=== PATIENT | female | born 1950 | race Caucasian/White ===

== ENCOUNTER → 2019-07-30 15:54 | Outpatient (BNVA) | payer BC, SELFPAY | PROVIDERS: Family Provider Nurse Practitioner; PCP Nurse Practitioner; Visit Provider Nurse Practitioner Family | DX: N39.0 Urinary tract infection, site not specified (principal); F17.200 Nicotine dependence, unspecified, uncomplicated | CPT/HCPCS: 80053; 80061; 81003; 82306; 83036; 84443; 85025; 87077; 87086; 87186 ==

== ENCOUNTER → 2019-08-12 15:51 | Outpatient (BNVA) | payer BC, SELFPAY | PROVIDERS: Family Provider Nurse Practitioner; PCP Nurse Practitioner; Visit Provider Nurse Practitioner Family | DX: N39.0 Urinary tract infection, site not specified (principal) | CPT/HCPCS: 80053; 81001; 87077; 87086; 87186 ==

== ENCOUNTER → 2019-08-28 15:54 | Outpatient (BNVA) | payer BC, SELFPAY | PROVIDERS: Family Provider Nurse Practitioner; PCP Nurse Practitioner; Visit Provider Nurse Practitioner Family | DX: N39.0 Urinary tract infection, site not specified (principal) | CPT/HCPCS: 80053; 81003 ==

== ENCOUNTER → 2020-11-19 11:50 | Outpatient (BNVA) | payer OTHER, SELFPAY | PROVIDERS: Family Provider Nurse Practitioner; PCP Nurse Practitioner; Visit Provider Nurse Practitioner Family | DX: N39.0 Urinary tract infection, site not specified (principal); F17.200 Nicotine dependence, unspecified, uncomplicated; R53.83 Other fatigue; Z79.899 Other long term (current) drug therapy; E78.2 Mixed hyperlipidemia; E55.9 Vitamin D deficiency, unspecified | CPT/HCPCS: 80053; 80061; 81003; 82306; 83036; 83735; 84443; 85025 ==

== ENCOUNTER → 2021-01-28 14:39 | Outpatient (BNVA) | payer OTHER, SELFPAY | PROVIDERS: Family Provider Nurse Practitioner; PCP Nurse Practitioner Family; Visit Provider Nurse Practitioner Family | DX: N39.0 Urinary tract infection, site not specified (principal); R39.9 Unspecified symptoms and signs involving the genitourinary system | CPT/HCPCS: 81003; 87086 ==

== ENCOUNTER → 2021-02-01 11:19 | Outpatient (BNVA) | payer OTHER, SELFPAY | PROVIDERS: Family Provider Nurse Practitioner; PCP Nurse Practitioner Family; Visit Provider Nurse Practitioner Family | DX: I10 Essential (primary) hypertension (principal); Z79.899 Other long term (current) drug therapy; E55.9 Vitamin D deficiency, unspecified; E78.2 Mixed hyperlipidemia | CPT/HCPCS: 80053; 80061; 82306; 83036; 84443; 85025 ==

== ENCOUNTER 2021-02-07 14:54 | Observation (INO) | payer MEDICARE, SELFPAY ==
[2021-02-07] VITALS (7 sets, daily range): BP systolic 139–181; BP diastolic 80–110; PULSE 76–106; RESP 16–18; TEMP 36.4–37.2; O2SAT 94–98; BMI 27.3
--- NOTE | 2021-02-07 15:44 | ECG_ITS ---
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 Measurements Intervals [place] Rate: 90 P: 40 NE: 136 QRS: 43 QRSD: 93 T: 46 QT: 351 QTc: 430 Interpretive Statements SINUS RHYTHM POSSIBLE LEFT ATRIAL ENLARGEMENT [-0.1mV P-WAVE IN V1/V2] INCOMPLETE RIGHT BUNDLE BRANCH BLOCK [90+ ms QRS DURATION, TERMINAL R IN V1/V2, 40+ ms S IN I/aVL/V4/V5/V6] No previous ECG available for comparison Electronically Signed On 02-07-2021 18:37:07 CDT by Anna Mcgovern M.D. [id number]
--- NOTE | 2021-02-07 15:44 | XRR_ITS ---
PROCEDURE INFORMATION: Exam: XR Chest Exam date and time: 02/07/2021 3:44 PM Age: 70 years old Clinical indication: Dyspnea TECHNIQUE: Imaging protocol: XR of the chest. Views: 1 view. COMPARISON: No relevant prior studies available. FINDINGS: Lungs: Compressive atelectasis in the the left lingula and left lower lobe. Pleural spaces: Moderate left pleural effusion. Heart/Mediastinum: The cardiac silhouette is mildly enlarged. Mediastinal contours are unremarkable. Vasculature: Vascular calcifications in the aorta. Bones/joints: Unremarkable for age. XR/XR chest 1V portable [id number] IMPRESSION: 1. Moderate left pleural effusion with compressive atelectasis in the the left lingula and left lower lobe. 2. Incidental/nonacute findings are listed in the report. Radiation Dose CTDIVOL = (mGy): DLP = (mGy-cm)
--- NOTE | 2021-02-07 16:06 | ED_ITS ---
HPI - General Adult General: Chief complaint: Shortness of Breath/Dyspnea Stated complaint: CP, SOB Time Seen by Provider: 02/07/21 15:34 History of Present Illness: HPI narrative: CC: Chest Pain HPI: This is a 70yo patient hx of new diagonsis of HTN, smoking, first degree family member with heart problem presenting to the ED w/ acute onset worsening dyspnea and chest pain since 3 weeks away. Patient is followed by Dr. Tan and is planned to have a stress test. However patient has not done this test yet and has had progressively worsening dyspnea and chest pain. Only chest pain 2 out of 10. Pain is not tearing in nature and does not radiate to the back. Endorse nausea but has no associated with vomiting or decreased PO intake. Denies any recent sympathomimetic drug use. Patient denies any cough. Denies palpitations, syncope symptoms. Pain not positional. Norecent immobility, surgery, unilateral leg swelling, or prior PE. Patient denies any orthopnea, paroxysmal nocturnal dyspnea, weight gain, or increased leg swellings. Onset: 3 weeks ago Duration: acutely worsening in the last 3 days Location: home Severity: moderate Review of Systems Narrative: Constitutional: No fever, no chills. HEENT: No vision changes, no sore throat. CV: +chest pain, no palpitations. PULM: No cough, +dyspnea. GI: No abdominal pain, no N/V/D. : No dysuria, no frequency, no hematuria. MSKEL: No arthralgias, no edema. SKIN: No new rashes, no lesions. NEURO: No headache, no focal weakness. HEME: No easy bleeding or bruising. PSYCH: No change in mood or affect. PFSH ED PFSH: Medical History (Updated 02/10/21 @ 00:01 by ) Chest pressure Dyspnea Encounter for medication management Essential hypertension Frequent UTI Murmur UTI symptoms Vitamin D deficiency Social History Smoking and tobacco status: current every day smoker Physical Exam Narrative: EXAM NARRATIVE: Head: Atraumatic, normocephalic Eyes: PERRL, EOMI, conjunctiva without injection ENT: Throat without erythema, lesions or exudate, MMM NECK: Supple, trachea midline, no JVD LUNGS: LCTA CV: RRR, S1,S2, no murmurs, rubs, gallops. 2+ peripheral pulses in UEs ABDOMEN: Soft, nontender, nondistended, BS x4, no rigidity, no guarding, no re bound EXTREMITY: Normal ROM, no pitting edema, no calf tenderness to palpation SKIN: No rash or erythema NEURO: Awake and alert. No focal motor deficits. PSYCH: Normal mood and affect. Course Vital Signs: Vital signs: Vital Signs Temperature 98.6 F 02/09/21 14:56 Pulse Rate 75 02/09/21 14:56 Respiratory Rate 16 02/09/21 14:56 Blood Pressure 121/78 02/09/21 14:56 Pulse Oximetry 96 02/09/21 14:56 MDM - General Adult MDM Narrative: Medical decision making narrative: [70]yo patient w/ hx of HTN, smoking, family member with heart problems presenting to the ED With acute chest pain/dyspnea progressively worsening in the last 3 weeks. Given History And Exam today I have moderate to high suspicion for ACS/UA/NSTEMI. Today, I have NO suspicion for pneumothorax, pneumonia, pulmonary embolus, tamponade, aortic dissection or other emergent problem as a cause for this presentation. ECG did not show any signs of acute STEMI. Workup: ECG, CXR, CBC, BMP, Troponin x 3 Intervention: ASA 325mg, nitroglycerin ointment EKG showing regular sinus rhythm at HT of 68. Normal axis. No ST elevations/depressions to suggest coronary occlusion. Normal RI, QRS, QT intervals. Findings: ECG: No overt evidence of STEMI, no hyperacute T waves, localizable STD or T wave inversions. No evidence of Brugada?s sign, delta wave, epsilon wave, significantly prolonged QTc, or malignant arrhythmia. No Q waves. Troponin: Negative x 1 Other Labs unremarkable for emergent problems. CXR: Without PTX, PNA, or widened mediastinum [6:20pm] On reassessment, the patient is currently chest pain free. S/p aspirin 325mg. Dimer is >20. CTA showed pulmonary embolism. Will anticoagulate. No signs of dissection on CTA. Incidental findings of L sided spiculated lesion discussed extensively with patient. Patient received a copy of the CT report with the documented findings. Findings relayed to the inpatient provider. Patient is instructed to follow up urgently with specialists. Disposition: Inpatient admission. Lab Data: Labs: Lab Results 02/07/21 02/07/21 02/07/21 16:00 16:00 16:00 WBC 9.2 10^3/uL 10^3/ uL (4.0-10.0) RBC 4.47 10^6/uL 10^6 /uL (4.1-5.3) Hgb 12.2 g/dL g/dL (11.5-15.3) Hct 37.4 % % (37.0-47.0) MCV 83.7 fl fl (81-99) MCH 27.3 pg L pg (28.0-34.0) MCHC 32.6 g/dL g/dL (30.0-36.0) RDW 13.2 % % (12.1-15.1) Plt Count 218 10^3/cmm 10^3 /cmm (130-400) MPV 10.8 fL H fL (7.4-10.4) Neut % (Auto) 68.5 % % Lymph % (Auto) 18.9 % % Lyman % (Auto) 7.9 % % Eos % (Auto) 3.7 % % Baso % (Auto) 0.5 % % Neut # (Auto) 6.30 10^3/uL 10^3 /uL (1.8-7.7) Lymph # (Auto) 1.7 10^3/uL 10^3/ uL (0.8-4.8) Lyman # (Auto) 0.7 10^3/uL 10^3/ uL (0.2-0.9) Eos # (Auto) 0.3 10^3/uL 10^3/ uL (0.0-0.8) Baso # (Auto) 0.1 10^3/uL 10^3/ uL (0.0-0.1) Nucleated RBC % (a uto) 0 % % Nucleated RBCs # 0.0 /100WBC /100W BC D-Dimer Sodium 138 mmol/L mmol/L (136-145) Potassium 4.4 mmol/L mmol/L (3.5-5.1) Chloride 101 mmol/L mmol/L (98-107) Carbon Dioxide 24 mmol/L mmol/L (22-29) Anion Gap 17.4 (5-19) BUN 12 mg/dL mg/dL (8-23) Creatinine 0.7 mg/dL mg/dL (0.5-0.9) GFR Calculation 83.2 mL/min L mL/ min (90-130) Glucose 92 mg/dL mg/dL (65-115) Estimat Average Gl ucose Hemoglobin A1c Calculated Osmolal ity 285 mOsm/kg mOsm/ kg (285-295) Calcium 9.2 mg/dL mg/dL (8.5-10.5) Troponin T Baselin e 11 ng/L H ng/L (0-10) NT-Pro-B Natriuret Pep Procalcitonin TSH SARS-CoV-2 Ag (Rap id) 02/07/21 02/07/21 02/07/21 16:00 16:00 16:00 WBC RBC Hgb Hct MCV MCH MCHC RDW Plt Count MPV Neut % (Auto) Lymph % (Auto) Lyman % (Auto) Eos % (Auto) Baso % (Auto) Neut # (Auto) Lymph # (Auto) Lyman # (Auto) Eos # (Auto) Baso # (Auto) Nucleated RBC % (a uto) Nucleated RBCs # D-Dimer >= 20.00 ug/mIFEU H ug/mIFEU (0-0.59) Sodium Potassium Chloride Carbon Dioxide Anion Gap BUN Creatinine GFR Calculation Glucose Estimat Average Gl ucose 97 Hemoglobin A1c 5.0 % % (4.0-6.0) Calculated Osmolal ity Calcium Troponin T Baselin e NT-Pro-B Natriuret Pep Procalcitonin TSH SARS-CoV-2 Ag (Rap id) Negative (Negative) 02/07/21 02/07/21 16:00 16:00 WBC RBC Hgb Hct MCV MCH MCHC RDW Plt Count MPV Neut % (Auto) Lymph % (Auto) Lyman % (Auto) Eos % (Auto) Baso % (Auto) Neut # (Auto) Lymph # (Auto) Lyman # (Auto) Eos # (Auto) Baso # (Auto) Nucleated RBC % (a uto) Nucleated RBCs # D-Dimer Sodium Potassium Chloride Carbon Dioxide Anion Gap BUN Creatinine GFR Calculation Glucose Estimat Average Gl ucose Hemoglobin A1c Calculated Osmolal ity Calcium Troponin T Baselin e NT-Pro-B Natriuret Pep 74 pg/mL pg/mL (0-125) Procalcitonin 0.03 ng/mL ng/mL (0-0.5) TSH 1.35 uIU/mL uIU/m L (0.27-4.20) SARS-CoV-2 Ag (Rap id) Imaging Data^: Other Imaging: Radiologist's impression: [email or web address] [place] [id number] ReportSigned Patient: Rima Manuel #: [id number]: 1950cct#:[id number]/Sex: 70 / FADM Date: 02/07/21Loc: ERRoom/Bed:Attending Dr: Ordering Provider/Ordering MD: Donovan Jenkins MD Date of Service: 02/07/21 Procedure(s): XR chest 1V portable [id number] Accession Number(s): [id number] Report Number: [id number] PROCEDURE INFORMATION: Exam: XR Chest Exam date and time: 02/07/2021 3:44 PM Age: 70 years old Clinical indication: Dyspnea TECHNIQUE: Imaging protocol: XR of the chest. Views: 1 view. COMPARISON: No relevant prior studies available. FINDINGS: Lungs: Compressive atelectasis in the the left lingula and left lower lobe. Pleural spaces: Moderate left pleural effusion. Heart/Mediastinum: The cardiac silhouette is mildly enlarged. Mediastinal contours are unremarkable. Vasculature: Vascular calcifications in the aorta. Bones/joints: Unremarkable for age. XR/XR chest 1V portable [id number] IMPRESSION: 1. Moderate left pleural effusion with compressive atelectasis in the the left lingula and left lower lobe. 2. Incidental/nonacute findings are listed in the report. Radiation Dose CTDIVOL = (mGy): DLP = (mGy-cm) Dictated By:Mitzi Walsh MDSigned By:Mitzi Walsh MDSigned Date/Time:02/07/21 1726DD/ [email or web address] [id number] Scan ReportSigned Patient: Rima Manuel #: [id number]: 1950cct#:[id number]/Sex: 70 / FADM Date: 02/07/21Loc: [facility]/Bed: 277-2Attending Dr: Freya Ames MD Ordering Provider/Ordering MD: Donovan Jenkins MD Date of Service: 02/07/21 Procedure(s): CT angio chest PE protcl [id number] Accession Number(s): [id number] Report Number: [id number] PROCEDURE INFORMATION: Exam: CTA Chest With Contrast Exam date and time: 02/07/2021 5:49 PM Age: 70 years old Clinical indication: Shortness of breath; Patient HX: SOB. D dimer of 20. ; Additional info: Eval for pe TECHNIQUE: Imaging protocol: Computed tomographic angiography of the chest with contrast. Sagittal and coronal reformatted images were created and reviewed. 3D rendering (Not supervised by radiologist): MIP and/or 3D reconstructed images were created by the technologist. Radiation optimization: All CT scans at this facility use at least one of these dose optimization techniques: automated exposure control; mA and/or kV adjustment per patient size (includes targeted exams where dose is matched to clinical indication); or iterative reconstruction. Contrast material: OMNI 350; Contrast volume: 83 ml; Contrast route: INTRAVENOUS (IV); COMPARISON: CR (CHEST, ) 02/07/2021 4:09 PM RADIATION DOSE METRICS: Total DLP (mGy-cm): 569.47 FINDINGS: Pulmonary arteries: Occlusive pulmonary emboli in the anterior and lateral segmental branches and and subsegmental branches of the right lower lobe pulmonary artery. Nonocclusive pulmonary emboli in the superior and posterior segmental branches of the right lower lobe pulmonary artery. Aorta: Mild atherosclerotic changes in the visualized arteries. No evidence for aortic aneurysm or aortic dissection. Lungs: Tracheobronchial structures are patent. Spiculated nodule in the left upper lobe measuring 1.5 x 0.8 x 1.0 cm (series 602, image 26 and series 3, image 14). Mild paraseptal and centrilobular emphysematous changes in the lungs. Compressive atelectasis in the the left lower lobe. No pulmonary parenchymal nodules or masses. Calcified granuloma in the the right upper lobe. Pleural spaces: Large left pleural effusion. Heart: The heart is normal in size. Mild atherosclerotic calcification in the coronary arteries. The heart is normal in size. Heart RV/LV ratio: The RV/LV ratio is 0.89, which is borderline upper normal. Mediastinal space: The esophagus is unremarkable. No mediastinal hematoma. No pneumomediastinum. Lymph nodes: Multiple enlarged right hilar lymph nodes. The largest measures 2.5 cm in short axis (series 2, image 99). Multiple enlarged mediastinal lymph nodes, the largest measures 1.9 cm in short axis (series 2, image 154). Liver: The visualized liver is unremarkable. Gallbladder and bile ducts: Patient has had a previous cholecystectomy. No dilatation of the visualized bile ducts. Pancreas: The visualized pancreas is unremarkable. No pancreatic ductal dilatation. Spleen: The visualized spleen is unremarkable. Adrenal glands: The right and left adrenal glands are unremarkable. Kidneys and ureters: Multiple cysts in the visualized kidneys. The largest cyst on the right measures 5.1 cm. Cysts in the left kidney are partially visualized, the largest measures at least 3.6 cm. Stomach and bowel: Scattered diverticula in the colon. No evidence for diverticulitis. Bones/joints: Degenerative changes in the spine and shoulders. Small bone islands in the left humeral head. Soft tissues: No acute abnormality in the extrathoracic soft tissues. CT/CT angio chest [place] protcl [id number] IMPRESSION: 1. Occlusive pulmonary emboli in the anterior and lateral segmental branches and and subsegmental branches of the right lower lobe pulmonary artery. Nonocclusive pulmonary emboli in the superior and posterior segmental branches of the right lower lobe pulmonary artery. 2. The RV/LV ratio is 0.89, which is borderline upper normal. 3. Large left pleural effusion. 4. Compressive atelectasis in the the left lower lobe. 5. Scattered diverticula in the colon. No evidence for diverticulitis. 6. Spiculated nodule in the anterior left upper lobe with mediastinal and right axillary lymphadenopathy. Findings are concerning for a primary pulmonary neoplasm with associated metastatic disease. Recommend clinical correlation. 7. Incidental/nonacute findings are listed in the report. COMMENTS: 1. THIS REPORT CONTAINS FINDINGS THAT MAY BE CRITICAL TO PATIENT CARE. The findings were verbally communicated via telephone conference with DONOVAN Lyons at 6:36 PM CDT on 02/07/2021. The findings were acknowledged and understood. 2. Consistent with the [employer]'s Incidental Findings Committee white paper (J Am Anna Radiol 2018): Any incidental renal lesion less than 1 cm or classified as too small to characterize, or any incidental cystic renal lesion characterized as simple-appearing, is likely benign. No follow-up imaging is recommended for these lesions per consensus recommendations based on imaging criteria. Radiation Dose CTDIVOL = (mGy): DLP = 569.47 (mGy-cm) Dictated By:Mitzi Walsh MDSigned By:Mitzi Walsh MDSigned Date/Time:02/07/211838DD/ 48 Discharge Plan Discharge Patient Disposition: Admitted As Inpatient Admit Provider: Freya Ames Clinical Impression: Chest pain, Exertional dyspnea, Pulmonary embolism, Elevated troponin Condition: Stable Discharge Diet: Regular Discharge Activity: Increase activity as tolerated Coding Level of Care Code ED Manager Environmental Health for Nikko Perez
[2021-02-07 16:22] LABS: Basophils # 0.1 10^3/uL (0.0-0.1); Basophils % 0.5 %; Eosinophils # 0.3 10^3/uL (0.0-0.8); Eosinophils % 3.7 %; Hematocrit 37.4 % (37.0-47.0); Hemoglobin 12.2 g/dL (11.5-15.3); Lymphocytes # 1.7 10^3/uL (0.8-4.8); Lymphocytes % 18.9 %; Mean Corpuscular HGB Conc 32.6 g/dL (30.0-36.0); Mean Corpuscular Hemoglobin 27.3 pg (28.0-34.0); Mean Corpuscular Volume 83.7 fl (81-99); Mean Platelet Volume 10.8 fL (7.4-10.4); Monocytes # 0.7 10^3/uL (0.2-0.9); Monocytes % 7.9 %; Neutrophils % 68.5 %; Nucleated Red Blood Cells % 0 %; Platelet Count 218 10^3/cmm (130-400); Red Blood Count 4.47 10^6/uL (4.1-5.3); Red Cell Distribution Width 13.2 % (12.1-15.1); White Blood Count 9.2 10^3/uL (4.0-10.0)
[2021-02-07] MEDS: nitroglycerin 1 gm/inch oint Pkt 0.5 INCH TOPICAL (16:24)
[2021-02-07] MEDS: aspirin 325 mg Tablet PO (16:24)
[2021-02-07 16:56] LABS: Troponin(5th) Baseline 11 ng/L (0-10)
[2021-02-07 16:59] LABS: Anion Gap 17.4 (5-19); Blood Urea Nitrogen 12 mg/dL (8-23); Calcium 9.2 mg/dL (8.5-10.5); Carbon Dioxide 24 mmol/L (22-29); Chloride 101 mmol/L (98-107); Glomerular Filtration Rate 83.2 mL/min (90-130); Glucose 92 mg/dL (65-115); Osmolality Calculated 285 mOsm/kg (285-295); Potassium 4.4 mmol/L (3.5-5.1); Sodium 138 mmol/L (136-145)
[2021-02-07 17:28] LABS: SARS Covid-2 Antigen Negative (Negative)
[2021-02-07 17:30] LABS: D Dimer >= 20.00 ug/mIFEU (0-0.59)
--- NOTE | 2021-02-07 17:49 | CTR_ITS ---
PROCEDURE INFORMATION: Exam: CTA Chest With Contrast Exam date and time: 02/07/2021 5:49 PM Age: 70 years old Clinical indication: Shortness of breath; Patient HX: SOB. D dimer of 20. ; Additional info: Eval for pe TECHNIQUE: Imaging protocol: Computed tomographic angiography of the chest with contrast. Sagittal and coronal reformatted images were created and reviewed. 3D rendering (Not supervised by radiologist): MIP and/or 3D reconstructed images were created by the technologist. Radiation optimization: All CT scans at this facility use at least one of these dose optimization techniques: automated exposure control; mA and/or kV adjustment per patient size (includes targeted exams where dose is matched to clinical indication); or iterative reconstruction. Contrast material: OMNI 350; Contrast volume: 83 ml; Contrast route: INTRAVENOUS (IV); COMPARISON: CR (CHEST, ) 02/07/2021 4:09 PM RADIATION DOSE METRICS: Total DLP (mGy-cm): 569.47 FINDINGS: Pulmonary arteries: Occlusive pulmonary emboli in the anterior and lateral segmental branches and and subsegmental branches of the right lower lobe pulmonary artery. Nonocclusive pulmonary emboli in the superior and posterior segmental branches of the right lower lobe pulmonary artery. Aorta: Mild atherosclerotic changes in the visualized arteries. No evidence for aortic aneurysm or aortic dissection. Lungs: Tracheobronchial structures are patent. Spiculated nodule in the left upper lobe measuring 1.5 x 0.8 x 1.0 cm (series 602, image 26 and series 3, image 14). Mild paraseptal and centrilobular emphysematous changes in the lungs. Compressive atelectasis in the the left lower lobe. No pulmonary parenchymal nodules or masses. Calcified granuloma in the the right upper lobe. Pleural spaces: Large left pleural effusion. Heart: The heart is normal in size. Mild atherosclerotic calcification in the coronary arteries. The heart is normal in size. Heart RV/LV ratio: The RV/LV ratio is 0.89, which is borderline upper normal. Mediastinal space: The esophagus is unremarkable. No mediastinal hematoma. No pneumomediastinum. Lymph nodes: Multiple enlarged right hilar lymph nodes. The largest measures 2.5 cm in short axis (series 2, image 99). Multiple enlarged mediastinal lymph nodes, the largest measures 1.9 cm in short axis (series 2, image 154). Liver: The visualized liver is unremarkable. Gallbladder and bile ducts: Patient has had a previous cholecystectomy. No dilatation of the visualized bile ducts. Pancreas: The visualized pancreas is unremarkable. No pancreatic ductal dilatation. Spleen: The visualized spleen is unremarkable. Adrenal glands: The right and left adrenal glands are unremarkable. Kidneys and ureters: Multiple cysts in the visualized kidneys. The largest cyst on the right measures 5.1 cm. Cysts in the left kidney are partially visualized, the largest measures at least 3.6 cm. Stomach and bowel: Scattered diverticula in the colon. No evidence for diverticulitis. Bones/joints: Degenerative changes in the spine and shoulders. Small bone islands in the left humeral head. Soft tissues: No acute abnormality in the extrathoracic soft tissues. CT/CT angio chest [place] protcl [id number] IMPRESSION: 1. Occlusive pulmonary emboli in the anterior and lateral segmental branches and and subsegmental branches of the right lower lobe pulmonary artery. Nonocclusive pulmonary emboli in the superior and posterior segmental branches of the right lower lobe pulmonary artery. 2. The RV/LV ratio is 0.89, which is borderline upper normal. 3. Large left pleural effusion. 4. Compressive atelectasis in the the left lower lobe. 5. Scattered diverticula in the colon. No evidence for diverticulitis. 6. Spiculated nodule in the anterior left upper lobe with mediastinal and right axillary lymphadenopathy. Findings are concerning for a primary pulmonary neoplasm with associated metastatic disease. Recommend clinical correlation. 7. Incidental/nonacute findings are listed in the report. COMMENTS: 1. THIS REPORT CONTAINS FINDINGS THAT MAY BE CRITICAL TO PATIENT CARE. The findings were verbally communicated via telephone conference with BETO Lyons at 6:36 PM CDT on 02/07/2021. The findings were acknowledged and understood. 2. Consistent with the [employer]'s Incidental Findings Committee white paper (J Am Anna Radiol 2018): Any incidental renal lesion less than 1 cm or classified as too small to characterize, or any incidental cystic renal lesion characterized as simple-appearing, is likely benign. No follow-up imaging is recommended for these lesions per consensus recommendations based on imaging criteria. Radiation Dose CTDIVOL = (mGy): DLP = 569.47 (mGy-cm)
[2021-02-07] MEDS: iohexol 350 mg/mL 100 mL Btl IV (18:08)
--- NOTE | 2021-02-07 19:40 | PM.HP ---
Providers/Chief Complaint Admitting Physician: Freya Ames MD Primary Care Provider: CLOVIS Beltrán Chief Complaint: CP, SOB History of Present Illness Rima Manuel is a 70 year old female Patient is 70-year-old female with recent diagnosis of hypertension, active smoking who presents to the hospital today for complaint of shortness of breath. She states initially the shortness of breath started about 3 weeks ago and has been slowly progressively worsening. She saw her primary care provider recently and was ordered to have a stress test and an echocardiogram but before she could get to that she ended up in the hospital. She states shortness of breath has worsened to the point where she would just walk up 4 4 5 feet and has shortness of breath. She also complains of a chest pressure that is intermittent comes and goes. Does not report any pain radiating to her back but does endorse having some pain in her right shoulder blade. She says she considers himself pretty healthy up until she got diagnosed with hypertension. She was placed on amlodipine 2.5 mg daily. She states she has been checking her blood pressure at home and remembers that the systolic is around 130 but does not remember the diastolic pressure. She denies being sedentary or having any surgeries recently. She does endorse bilateral lower extremity swelling with one leg being the worse compared to the other. She also states that her sugars have been feeling tighter when her feet are swollen but has not experienced any increased use of pillows at night. She does not carry a diagnosis of COPD that she knows of and does not use any inhalers at home. Patient states that she has recurrent UTIs and has had about 3 of them in the last 2 years. She was also recently on a course of Macrobid that she completed. Also she mentions that her dad and sister both had heart disease that was diagnosed in their 50s. Patient denies having Covid and has not had a covid vaccine. On arrival to ER blood pressure 159/80, pulse ox 96% on room air, respiratory rate 18, pulse 95%, temperature 99. Initial impression of the ER was acute coronary syndrome/unstable angina. Initial troponin was negative. Second troponin was pending. EKG did not show any signs of acute ST elevation ME or acute ischemic changes. However there was a right bundle branch block present on EKG. Patient was given aspirin 325 and was placed Nitro-Bid 2.5 inches to which she did not really experience any change in the pain or pressure. D-dimer was done which came back high at 20. CT was done which did show pulmonary embolism in multiple segments of right upper and lower lobe. There was also incidental findings of left-sided spiculated lesion 1.5 cm that were discussed by the ER with the patient. Findings were concerning for primary pulmonary neoplasm with associated metastatic disease. She was also given a copy of the report with the documented findings. There was also a large left pleural effusion present. RV/LV ratio was 0.89 which is borderline upper normal. Echocardiogram was ordered. The third troponin is pending at this point. Patient was given first dose of full dose Lovenox in the ER and admitted. Review of Systems General: Reports: 10 or more systems reviewed and unremarkable except in HPI and below Medications/Allergies Home Medications Medication Instructions Recorded Confirmed Last Taken Type amlodipine 2.5 mg tablet 2.5 mg PO DAILY 30 Days #30 tab 02/03/21 02/07/21 02/07/21 Rx aspirin 81 mg PO DAILY 02/07/21 02/07/21 02/07/21 History cholecalciferol (vitamin D3) 25 mcg PO DAILY 02/07/21 02/07/21 02/07/21 History [Vitamin D3] elderberry fruit [Elderberry] 200 mg PO DAILY 02/07/21 02/07/21 02/07/21 History multivitamin 1 tab PO DAILY 02/07/21 02/07/21 02/07/21 History zinc 50 mg PO DAILY 02/07/21 02/07/21 02/07/21 History Allergies Allergy/AdvReac Type Severity Reaction Status Date / Time No Known Allergies Allergy Verified 02/03/21 14:37 PFSH Acute PFSH: Medical History (Updated 02/07/21 @ 20:20 by Freya Ames MD) Chest pressure Dyspnea Encounter for medication management Essential hypertension Frequent UTI Murmur UTI symptoms Vitamin D deficiency Social History Smoking and tobacco status: current every day smoker Vitals/I&O/Wt Last Vital Signs Temp 99.0 F 02/07/21 15:21 Pulse 80 02/07/21 19:26 Resp 16 02/07/21 19:26 BP 181/101 02/07/21 19:26 Pulse Ox 98 02/07/21 19:26 Weight last 48 hrs Weight 68.039 kg Physical Exam Narrative: EXAM NARRATIVE: General: Alert oriented x3, patient seen sitting up on edge of bed in the ER. She is accompanied by 2 of her daughters. HEENT: Normocephalic, atraumatic, EOMI, breathing room air appearing comfortable but anxious Cardio: Regular rate rhythm, normal S1-S2, no murmurs rubs gallops, pain is not reproducible to palpation. Mainly occurring in epigastric region as per patient. Respiratory: Good bilateral air entry, no wheezes no rhonchi appreciated, there are mild crackles heard at the left base. GI: Abdomen soft, nontender, nondistended, bowel sounds + Behavior: Appropriate and cooperative Extremities: Pulses 2+, trace edema present bilateral lower extremities, no cyanosis. Both calves do appear symmetrical at this point. Nontender. Data : 02/07/21 16:00 02/07/21 16:00 A&P Assessment and plan (1) Pulmonary embolism: Status: Acute (2) Exertional dyspnea: Status: Acute (3) Essential hypertension: Status: Acute (4) Mixed hyperlipidemia: Status: Suspected (5) Pulmonary nodule 1 cm or greater in diameter: Status: Acute Additional A&P Information #Multiple segmental pulmonary embolism #Exertional dyspnea #Pulmonary nodule 1 cm or greater #Large left pleural effusion #Nicotine dependence -Patient presents with unprovoked PE at this point. She is an active smoker 1 pack/day. -Also has a large left pleural effusion. We will give Lasix 20 mg IV x1 for now and see if there is response. Will repeat chest x-ray in a.m. Patient most likely needs a thoracentesis but I cannot hold her full dose Lovenox due to multiple segmental pulmonary embolism at this point and due to patient's symptoms. -Currently on room air. -She has been started on full dose Lovenox twice daily. -There is a question of underlying malignancy. She will need urgent follow-up with pulmonology as an outpatient for further work-up. -We will most likely transition her to a DOAC at discharge -We will await echocardiogram -We will follow troponins and monitor for further chest pressure. Most likely her chest pressure and exertional dyspnea are due to her pulmonary embolism at this point but cardiac cause is not excluded. Given her family history of coronary artery disease and age 50 and dad and sister patient will most likely benefit from a stress test. Currently she is chest pain-free. So far EKG has not shown any ischemic changes. We will wait for further troponin levels to make a determination. Currently she has been covered with Lovenox. Night hospitalist has been updated to follow troponin levels. #Hypertension -As an outpatient she was amlodipine 2.5 mg daily. Looking at the trend of her blood pressure I believe she would benefit from a higher dose. I will start her amlodipine 10 mg starting tomorrow morning. For now her blood pressure 181/101 we will give her a one-time hydralazine IV push. #Hyperlipidemia ?Lipid profile done total cholesterol 267 LDL high. -We will discuss initiation of a statin with the patient and start #Fluids: Not indicated Electrolytes: Replete as needed Nutrition: Low-salt diet Activity: As tolerated DVT prophylaxis: On full dose Lovenox at this time Attestations Medical Necessity Statement*: Expected discharge possibly within 48 hours. Time Spent in Patient Care: Greater than 35 minutes Coding Level of Care Code Acute Sales And Service Officer for Nikko Perez Diagnoses Pulmonary embolism I26.99 Exertional dyspnea R06.00 Essential hypertension I10 Mixed hyperlipidemia E78.2 Pulmonary nodule 1 cm or greater in diameter R91.1
--- NOTE | 2021-02-07 20:00 | ECG_ITS ---
[facility] Test Date: 2021-02-07 Pat Name: Rima Manuel Department: Room: 277 Gender: Female Crm Specialist: : 1950 Requested By: Freya Ames Order Number: [id number] Lora MD: Anna Mcgovern M.D. Measurements Intervals [place] Rate: 81 P: 54 MN: 141 QRS: 45 QRSD: 93 T: 46 QT: 378 QTc: 440 Interpretive Statements SINUS RHYTHM Compared to ECG 02/07/2021 15:31:20 Incomplete right bundle-branch block no longer present Electronically Signed On 02-08-2021 23:52:10 CDT by Anna Mcgovern M.D. [id number]
[2021-02-07 20:46] LABS: Estmated Average Glucose 97
[2021-02-07] MEDS: enoxaparin 80 mg/0.8 mL Syringe 70 MG SUBCUT (20:46)
[2021-02-07 20:54] LABS: Thyroid Stimulating Hormone 1.35 uIU/mL (0.27-4.20)
[2021-02-07 20:55] LABS: NT Pro B Type Natriuretic Pept 74 pg/mL (0-125)
[2021-02-07 21:13] LABS: Procalcitonin 0.03 ng/mL (0-0.5)
[2021-02-07] MEDS: hyDRALAzine 20 mg/mL INJ 1 mL 5 MG IVP (21:16)
[2021-02-07] MEDS: FUROsemide 10 mg/mL SDV 2mL 20 MG IVP (21:17)
--- NOTE | 2021-02-07 21:35 | PC.NURSE ---
i reported low temp 97.5 to nurse
[2021-02-07 22:38] LABS: Troponin 5 6HR 11.69 ng/L (0-10); Troponin 5 6HR Delta 0.69 ng/L (0-12)
[2021-02-08] VITALS (10 sets, daily range): BP systolic 108–155; BP diastolic 51–84; PULSE 72–89; RESP 15–20; TEMP 36.6–37.4; O2SAT 90–96
--- NOTE | 2021-02-08 02:00 | ECG_ITS ---
[facility] Test Date: 2021-02-08 Pat Name: Rima Manuel Department: Room: 277 Gender: Female Institutional Cook: : 1950 Requested By: Freya Ames Order Number: [id number] Lora MD: Anna Mcgovern M.D. Measurements Intervals [place] Rate: 83 P: 55 WV: 148 QRS: 46 QRSD: 93 T: 48 QT: 377 QTc: 444 Interpretive Statements SINUS RHYTHM Compared to ECG 02/07/2021 20:52:37 No significant changes Electronically Signed On 02-08-2021 23:54:12 CDT by Anna Mcgovern M.D. [id number]
[2021-02-08 05:50] LABS: Basophils # 0.1 10^3/uL (0.0-0.1); Basophils % 0.7 %; Eosinophils # 0.5 10^3/uL (0.0-0.8); Eosinophils % 6.4 %; Hematocrit 33.6 % (37.0-47.0); Hemoglobin 11.2 g/dL (11.5-15.3); Lymphocytes # 1.7 10^3/uL (0.8-4.8); Mean Corpuscular HGB Conc 33.3 g/dL (30.0-36.0); Mean Corpuscular Hemoglobin 27.9 pg (28.0-34.0); Mean Corpuscular Volume 83.6 fl (81-99); Mean Platelet Volume 10.5 fL (7.4-10.4); Monocytes # 0.6 10^3/uL (0.2-0.9); Monocytes % 8.4 %; Neutrophils # 4.66 10^3/uL (1.8-7.7); Nucleated Red Blood Cells % 0 %; Platelet Count 211 10^3/cmm (130-400); Red Blood Count 4.02 10^6/uL (4.1-5.3); Red Cell Distribution Width 13.3 % (12.1-15.1); White Blood Count 7.5 10^3/uL (4.0-10.0)
[2021-02-08 06:01] LABS: INR 1.28 (0.8-1.2)
[2021-02-08] MEDS: enoxaparin 80 mg/0.8 mL Syringe 70 MG SUBCUT ×2 (06:06→18:13)
[2021-02-08 06:20] LABS: Alanine Aminotransferase 9 U/L (0-33); Albumin Level 3.6 g/dL (3.5-5.2); Alkaline Phosphatase 78 IU/L (35-105); Anion Gap 18.1 (5-19); Aspartate Amino Transferase 17 U/L (0-32); Blood Urea Nitrogen 13 mg/dL (8-23); Calcium 9.1 mg/dL (8.5-10.5); Carbon Dioxide 22 mmol/L (22-29); Chloride 104 mmol/L (98-107); Globulin 3.1 g/dL (1.3-4.6); Glomerular Filtration Rate 71.3 mL/min (90-130); Glucose 84 mg/dL (65-115); Magnesium 1.6 mg/dL (1.7-2.3); Osmolality Calculated 289 mOsm/kg (285-295); Potassium 4.1 mmol/L (3.5-5.1); Sodium 140 mmol/L (136-145); Total Bilirubin 0.4 mg/dL (0.15-1.2); Total Protein 6.7 g/dL (6.6-8.7)
--- NOTE | 2021-02-08 08:14 | USCV_ITS ---
Rima Manuel Age: 70 Gender: F : 1950 Exam Date: 02/08/2021 11:15 Ordering Phys: Freya Ames MD Technologist: Gay Farooq [place] [facility] [place]: BILAT PE BP: 121 / 80 HR: 77 Rhythm: Sinus Technical Quality: Technically difficult study MEASUREMENTS (Male / Female) Normal Values 2D ECHO LV Diastolic Diameter PLAX 3.6 cm 4.2 - 5.9 / 3.9 - 5.3 cm LV Systolic Diameter PLAX 3.0 cm IVS Diastolic Thickness 1.5 cm 0.6 - 1.0 / 0.6 - 0.9 cm IVS Systolic Thickness 2.3 cm LVPW Diastolic Thickness 1.9 cm 0.6 - 1.0 / 0.6 - 0.9 cm LVPW Systolic Thickness 2.3 cm LVOT Diameter 2.0 cm LV Ejection Fraction 2D Teich 32.2 % LV Ejection Fraction MOD 2C 58.2 % LV Ejection Fraction 2C AL 56.9 % LA Diameter 2.2 cm LA Width 2.5 cm LA Height 4.0 cm RA Width 2.0 cm RA Height 3.3 cm Aorta at Sinotubular Diameter 2.3 cm DOPPLER AV Peak Velocity 155.0 cm/s LVOT Peak Velocity 106.0 cm/s AV Area Cont Eq vti 2.3 cm squared AV Area Cont Eq pk 2.1 cm squared MV Peak Velocity 95.0 cm/s MV Area PHT 2.8 cm squared Mitral E to A Ratio 0.6 MV E' Velocity 30.0 cm/s Mitral E to MV E' Ratio 7.5 Mitral E to LV E' Lateral Ratio 6.6 Mitral E to LV E' Septal Ratio 8.6 TR Peak Velocity 125.0 cm/s TR Peak Gradient 6.3 mmHg TV Peak E Velocity 51.0 cm/s Right Atrial Pressure 3.0 mmHg Pulmonary Artery Systolic Pressu 9.3 mmHg FINDINGS Left Ventricle Normal left ventricular size. LV systolic function is normal with EF of 55-60%. No regional wall motion abnormalities. Grade 1 diastolic dysfunction Right Ventricle Not well visualized but grossly normal Right Atrium The right atrium is normal in size. Left Atrium The left atrium is normal in size. Mitral Valve Grossly normal without significant stenosis or prolapse. There is mild mitral regurgitation. Aortic Valve Not well visualized without significant sclerosis or stenosis. There is no aortic regurgitation. Tricuspid Valve Structurally normal tricuspid valve without significant stenosis or regurgitation. Insufficient TR jet to calculate RVSP Pulmonic Valve Not well visualized Pericardium Normal pericardium without effusion. Aorta Normal ascending aorta dimension. CONCLUSIONS Technically limited quality echocardiogram because of poor ultrasonic windows LV systolic function is normal with EF of 55-60% Grade 1 diastolic dysfunction Mild mitral regurgitation No comparison studies are available David Rousseau MD (Electronically Signed) Final Date: 08 February 2021 20:32 S
--- NOTE | 2021-02-08 08:16 | P.PN_ITS ---
Subjective Subjective: Interval history: Seen and examined this morning. Patient is feeling a lot better compared to admission. She says her shortness of breath is also improved. She would like to know what the further plan is and is refusing to have her Covid PCR test. Vitals/I&O/Wt Last Vital Signs Temp 98.4 F 02/08/21 07:22 Pulse 81 02/08/21 07:22 Resp 16 02/08/21 07:22 BP 121/80 02/08/21 07:22 Pulse Ox 95 02/08/21 07:22 02/07/21 02/08/21 02/08/21 22:59 06:59 14:59 Output Total 280 / 280 Balance -280 / -280 Weight last 48 hrs Weight 69.899 kg Weight 68.039 kg Physical Exam Narrative: EXAM NARRATIVE: General: Alert oriented x3, patient seen sitting up in bed appearing very comfortable today. On room air. HEENT: Normocephalic, atraumatic, EOMI, breathing room air appearing comfortable Cardio: Regular rate rhythm, normal S1-S2, no murmurs rubs gallops, Respiratory: Good bilateral air entry, no wheezes no rhonchi appreciated, chest clear to auscultation today bilaterally GI: Abdomen soft, nontender, nondistended, bowel sounds + Behavior: Appropriate and cooperative Extremities: Pulses 2+, trace edema present bilateral lower extremities, no cyanosis. Data : 02/08/21 05:37 02/08/21 05:37 A&P Assessment and plan (1) Pulmonary embolism: Status: Acute (2) Exertional dyspnea: Status: Acute (3) Essential hypertension: Status: Acute (4) Mixed hyperlipidemia: Status: Suspected (5) Pulmonary nodule 1 cm or greater in diameter: Status: Acute Additional A&P Information #Multiple segmental pulmonary embolism #Exertional dyspnea #Pulmonary nodule 1 cm or greater #Large left pleural effusion, etiology most likely malignant at this point. #Nicotine dependence -Patient presents with unprovoked PE at this point. She is an active smoker 1 pack/day. -Also has a large left pleural effusion. Will be following up with pulmonology outpatient. -She has been started on full dose Lovenox twice daily. -There is a question of underlying malignancy. Discussed case with pulmonology. She will be set up with an outpatient appointment next Monday after 2 weeks of anticoagulation. She will have further work-up at that point. Discussed Covid test with pulmonology and it is okay to hold off at this point. -We will most likely transition her to a DOAC at discharge -Echocardiogram pending. -Chest pain-free. EKG did not show ischemic changes. Troponins negative. Will transition to DOAC at discharge. Planning to discharge patient tomorrow. #Hypertension -As an outpatient she was amlodipine 2.5 mg daily. She did receive hydralazine at admission. Blood pressure has been normal since then. We will decide on amlodipine at discharge.. #Hyperlipidemia ?Lipid profile done total cholesterol 267 LDL high. -We will discuss initiation of a statin with the patient and start #Fluids: Not indicated Electrolytes: Replete as needed Nutrition: Low-salt diet Activity: As tolerated DVT prophylaxis: On full dose Lovenox at this time Attestations Medical Necessity Statement*: Plan to discharge in the morning. Coding Level of Care Code Acute Housekeeper Child Care for Nikko Perez Diagnoses Pulmonary embolism I26.99 Exertional dyspnea R06.00 Essential hypertension I10 Mixed hyperlipidemia E78.2 Pulmonary nodule 1 cm or greater in diameter R91.1
[2021-02-08] MEDS: aspirin 81 mg Chew Tablet PO (09:01)
[2021-02-08] MEDS: magnesium sulfate premix 2 GM/50 ML PIGGYBACK IV (09:03)
--- NOTE | 2021-02-08 09:47 | PC.CHAP ---
Pastoral Care Encounter/Spiritual Assessment Type of Contact [] Declined global human resources director visit [] Patient/Family/Request visit [] Outpatient visit [] Follow-up visit [] Physician referral [] Code/Alert [x] Routine visit [] Staff referral [] Actively dying [] Patient sleeping [] Family support [] [] Out of room [] Palliative care [] [] Receiving care in room [] Pre-surgical visit [] Trauma [] Long length of stay [] ICU visit [] Other: Relational/Emotional Strength [x] Patient feels connected with others/family/visitors/staff [] Distress [] Loneliness/isolation [] Abandonment Spirituality of Patient [x] Person of Danae [] Attends Jewish of their Danae [] Believes in Prayer [] Reads Bible or Protestant materials [] There are Spiritual issues to be addressed Credit Administration Specialist Interventions [x] Prayer [x] Active listening [x] Non-anxious presence [] Spiritual/emotional support [] Crisis/trauma care [] Spiritual counseling [] Bereavement support [] Provided bereavement packet [] Provided Bible/devotional materials [] Provided toy/stuffed animal, coloring book to patient or family member [] Provided Communion [] Anointing/[place] [] Salvation [x] Completed spiritual assessment [] Other: Impact on Illness or Injury [] Angry [] Fearful [] Anxious [] Often cries [] Exhaustion [] Unable to work [] Unable to attend buddhism [] Unable to walk/stand [] Unable to read [] Unable to drive [] Unable to eat/drink [] Unable to sleep [] Unable to be with family [] Patient intubated [] Other: Summary patient feeling mujch better Time spent with patient 10 min
--- NOTE | 2021-02-08 17:57 | PC.RESP ---
Smoking Cessation and Pulmonary Rehab information sent to patient.
--- NOTE | 2021-02-08 19:46 | USCV_ITS ---
Rima Manuel Age: 70 Gender: F : 1950 Exam Date: 02/08/2021 07:57 Ordering Phys: Freya Ames MD Technologist: Gay Farooq Exam Location: [facility] [place] Indication: BLE SWELLING, H/O PE HISTORY: Lower extremity swelling. PROCEDURES: Venous duplex imaging was performed in bilateral lower extremities. The following venous structures were evaluated: common femoral vein, profunda vein, proximal portion of the greater saphenous vein, superficial femoral vein, and the popliteal vein. In addition, the posterior tibial and peroneal trunk were evaluated. Serial compression, augmentation maneuvers, and spectral Doppler flow evaluation were performed. FINDINGS: + DVT SEEN IN BILAT LLE. RIGHT SFV PROX-DIST AND POP V. LEFT CFV-POP V ALL NO COMPRESSIBLE. ALL OTHER VEINS APPEAR PATENT Echogenic material was noted in the lumen of the femoral vein and popliteal vein on the right side. Echogenic material was noted in the lumen of the common femoral, femoral and popliteal vein on the left side. These veins were either noncompressible or partially compressible. CONCLUSIONS 1. Features of deep vein thrombosis involving the femoral and popliteal vein on the right side; common femoral, femoral and popliteal veins on the left side causing subtotal/subtotal occlusion. 2. The rest of the above-mentioned veins were found to be compressible with no evidence of thrombosis Dr Anna Mcgovern MD [facility] (Electronically Signed) Final Date: 08 February 2021 23:13 S
--- NOTE | 2021-02-08 19:55 | XRR_ITS ---
PROCEDURE INFORMATION: Exam: XR Chest Exam date and time: 02/08/2021 7:55 PM Age: 70 years old Clinical indication: Condition or disease; Lung condition and disease; Pulmonary embolism; Attributes not specified; Additional info: Follow up TECHNIQUE: Imaging protocol: XR of the chest. Views: 1 view. COMPARISON: CR (CHEST, ) 02/07/2021 4:09 PM FINDINGS: Lungs: See Pleural spaces finding. Pleural spaces: moderate left pleural effusion with left basilar consolidation versus atelectasis. Heart/Mediastinum: Unremarkable. No cardiomegaly. Bones/joints: Unremarkable. XR/XR chest 1V portable [id number] IMPRESSION: Moderate left pleural effusion with left basilar consolidation versus atelectasis. Small subpulmonic effusion on the right. Radiation Dose CTDIVOL = (mGy): DLP = (mGy-cm)
[2021-02-09] VITALS (7 sets, daily range): BP systolic 121–132; BP diastolic 76–84; PULSE 67–84; RESP 16–20; TEMP 36.7–37.1; O2SAT 96–97
[2021-02-09] MEDS: enoxaparin 80 mg/0.8 mL Syringe 70 MG SUBCUT (06:48)
[2021-02-09 07:04] LABS: Basophils # 0.1 10^3/uL (0.0-0.1); Basophils % 0.6 %; Eosinophils # 0.5 10^3/uL (0.0-0.8); Eosinophils % 5.7 %; Hematocrit 37.3 % (37.0-47.0); Hemoglobin 12.2 g/dL (11.5-15.3); Lymphocytes # 2.1 10^3/uL (0.8-4.8); Lymphocytes % 26.2 %; Mean Corpuscular HGB Conc 32.7 g/dL (30.0-36.0); Mean Corpuscular Hemoglobin 27.2 pg (28.0-34.0); Mean Corpuscular Volume 83.1 fl (81-99); Mean Platelet Volume 10.5 fL (7.4-10.4); Monocytes # 0.5 10^3/uL (0.2-0.9); Monocytes % 6.4 %; Neutrophils # 4.87 10^3/uL (1.8-7.7); Neutrophils % 60.6 %; Nucleated Red Blood Cells % 0 %; Platelet Count 273 10^3/cmm (130-400); Red Blood Count 4.49 10^6/uL (4.1-5.3); Red Cell Distribution Width 13.2 % (12.1-15.1)
[2021-02-09 07:10] LABS: Blood Urea Nitrogen 10 mg/dL (8-23); Calcium 8.8 mg/dL (8.5-10.5); Carbon Dioxide 23 mmol/L (22-29); Chloride 104 mmol/L (98-107); Glomerular Filtration Rate 99.4 mL/min (90-130); Glucose 83 mg/dL (65-115); Osmolality Calculated 282 mOsm/kg (285-295); Sodium 137 mmol/L (136-145)
[2021-02-09 07:11] LABS: Anion Gap 14.5 (5-19); Potassium 4.5 mmol/L (3.5-5.1)
[2021-02-09] MEDS: aspirin 81 mg Chew Tablet PO (08:36)
--- NOTE | 2021-02-09 08:38 | P.DS_ITS ---
Discharge Providers Date of Admission: 02/07/21 17:20 Date of Discharge: February 09, 2021 Attending Provider at Admission: Freya Ames MD Attending Provider at Discharge: Freya Ames MD Primary Care Provider: CLOVIS Beltrán Diagnoses at Discharge Discharge Diagnosis (1) Pulmonary embolism: Status: Acute (2) Exertional dyspnea: Status: Acute (3) Essential hypertension: Status: Acute (4) Mixed hyperlipidemia: Status: Suspected (5) Pulmonary nodule 1 cm or greater in diameter: Status: Acute Reason for Visit Reason for Visit: CP, SOB Hospital Course Hospital Course Rima Manuel is a 70 year old female Patient is 70-year-old female with recent diagnosis of hypertension, active smoking who presents to the hospital today for complaint of shortness of breath. She states initially the shortness of breath started about 3 weeks ago and has been slowly progressively worsening. She saw her primary care provider recently and was ordered to have a stress test and an echocardiogram but before she could get to that she ended up in the hospital. She states shortness of breath has worsened to the point where she would just walk up 4 4 5 feet and has shortness of breath. She also complains of a chest pressure that is intermittent comes and goes. Does not report any pain radiating to her back but does endorse having some pain in her right shoulder blade. She says she considers himself pretty healthy up until she got diagnosed with hypertension. She was placed on amlodipine 2.5 mg daily. She states she has been checking her blood pressure at home and remembers that the systolic is around 130 but does not remember the diastolic pressure. She denies being sedentary or having any surgeries recently. She does endorse bilateral lower extremity swelling with one leg being the worse compared to the other. She also states that her sugars have been feeling tighter when her feet are swollen but has not experienced any increased use of pillows at night. She does not carry a diagnosis of COPD that she knows of and does not use any inhalers at home. Patient states that she has recurrent UTIs and has had about 3 of them in the last 2 years. She was also recently on a course of Macrobid that she completed. Also she mentions that her dad and sister both had heart disease t hat was diagnosed in their 50s. Patient denies having Covid and has not had a covid vaccine. On arrival to ER blood pressure 159/80, pulse ox 96% on room air, respiratory rate 18, pulse 95%, temperature 99. Initial impression of the ER was acute coronary syndrome/unstable angina. Initial troponin was negative. Second troponin was pending. EKG did not show any signs of acute ST elevation UT or acute ischemic changes. However there was a right bundle branch block present on EKG. Patient was given aspirin 325 and was placed Nitro-Bid 2.5 inches to which she did not really experience any change in the pain or pressure. D-dimer was done which came back high at 20. CT was done which did show pulmonary embolism in multiple segments of right upper and lower lobe. There was also incidental findings of left-sided spiculated lesion 1.5 cm that were discussed by the ER with the patient. Findings were concerning for primary pulmonary neoplasm with associated metastatic disease. She was also given a copy of the report with the documented findings. There was also a large left pleural effusion present. RV/LV ratio was 0.89 which is borderline upper normal. Echocardiogram was ordered. The third troponin is pending at this point. Patient was given first dose of full dose Lovenox in the ER and admitted. Course Patient was given full dose Lovenox during her hospital stay. Echocardiogram was done which showed EF 55 to 60% with grade 1 diastolic dysfunction. I discussed her case with Dr. Solis over the phone. At this point malignancy is quite favorable looking at her CT scan. Dr. Solis would like to have her anticoagulated for 2 weeks before he sees her in the office. He would like to see her February 19. We will set up an appointment with him at discharge. Patient has been on room air and did not require oxygen on discharge. Home O2 evaluation was done. Patient also had lower extremity Dopplers done which revealed bilateral DVTs in femoral and popliteal vein on the right side, common femoral femoral and popliteal veins on the left side causing subtotal/subtotal occlusion. Patient will do further follow-up with pulmonology and potentially oncology if needed. All of this was explained to the patient and her daughter who was present at bedside today. Patient has not really required blood pressure medication while inpatient. I will stop her amlodipine 2.5 at this point. She will follow up with her primary with a blood pressure log sheet that she if she really needs it. She was also on aspirin 81 mg daily which she was taking on her own and no one had prescribed it. We discussed with her today that she is now on Eliquis. I will discontinue that at this point. She will see Dr. Solis outpatient and decide further with her primary regarding the aspirin. I called pharmacy to confirm the dosage instructions on the starter pack of Eliquis. She will take 10 mg twice a day for the first 7 days and 5 mg twice a day thereafter. I emphasized to the patient that she must not miss a single dose of this medication. Physical Exam Narrative: EXAM NARRATIVE: General: Alert oriented x3, patient seen sitting up in bed appearing very comfortable today. On room air. HEENT: Normocephalic, atraumatic, EOMI, breathing room air appearing comfortable Cardio: Regular rate rhythm, normal S1-S2, no murmurs rubs gallops, Respiratory: Good bilateral air entry, no wheezes no rhonchi appreciated, chest clear to auscultation today bilaterally GI: Abdomen soft, nontender, nondistended, bowel sounds + Behavior: Appropriate and cooperative Extremities: Pulses 2+, trace edema present bilateral lower extremities, no cyanosis. Discharge Data Data Completed and Pending: Completed Studies During Hospitalization Category Date Time Status CT angio chest PE protcl [id number] Urge nt Cat Scan 02/07/21 17:49 Completed XR chest 1V padmini ble [id number] Routine Exams 02/08/21 19:55 Completed XR chest 1V padmini ble [id number] Urgent Exams 02/07/21 15:44 [place] [id number] Urgent Ultrasound 02/08/21 19:46 Completed CV. echo complete * [id number] Urgent Ultrasound 02/08/21 08:14 Completed Pending at discharge Category Date Time Status Urinalysis Routin e Lab 02/07/21 19:46 Uncollected Labs from last 24 hours 02/09/21 02/09/21 06:13 06:13 WBC 8.0 RBC 4.49 Hgb 12.2 Hct 37.3 MCV 83.1 MCH 27.2 L MCHC 32.7 RDW 13.2 Plt Count 273 MPV 10.5 H Neut % (Auto) 60.6 Lymph % (Auto) 26.2 [place] % (Auto) 6.4 Eos % (Auto) 5.7 Baso % (Auto) 0.6 Neut # (Auto) 4.87 Lymph # (Auto) 2.1 [place] # (Auto) 0.5 Eos # (Auto) 0.5 Baso # (Auto) 0.1 Nucleated RBC % (a uto) 0 Nucleated RBCs # 0.0 Sodium 137 Potassium 4.5 Chloride 104 Carbon Dioxide 23 Anion Gap 14.5 BUN 10 Creatinine 0.6 GFR Calculation 99.4 Glucose 83 Calculated Osmolal ity 282 L Calcium 8.8 Vitals: Last Vital Signs Temp 98.7 F 02/09/21 08:00 Pulse 84 02/09/21 08:00 Resp 18 02/09/21 08:00 BP 132/84 02/09/21 08:00 Pulse Ox 96 02/09/21 08:00 Discharge Plan Discharge Patient Disposition: Home Condition: Stable Prescriptions: New Eliquis DVT-PE Treat 30D Start 5 mg (74 tabs) tablets,dose pack See Rx Instructions .ROUTE .COMPLEX Qty: 74 RF: 0 Continued multivitamin Tablet 1 tab PO DAILY RF: 0 zinc 50 mg Tablet 50 mg PO DAILY RF: 0 Vitamin D3 25 mcg (1,000 unit) Capsule 25 mcg PO DAILY RF: 0 elderberry fruit 200 mg Capsule 200 mg PO DAILY RF: 0 Held amlodipine 2.5 mg tablet 2.5 mg PO DAILY 30 Days Qty: 30 RF: 0 Hold Instructions: see PCP aspirin 81 mg Tablet,Chewable 81 mg PO DAILY RF: 0 Hold Instructions: see pcp Discharge Orders: Discharge Order (Routine); Ordered 02/09/21 Ordered By: Freya Ames Referrals: DB Tan FNP [Primary Care Provider] - 02/15/21 1:00 pm Amita Solis MD [Physician] - 02/19/21 10:45 am (See by Feb 19. Dr. Solis aware of patient. ) Discharge Diet: Regular Discharge Activity: Increase activity as tolerated Patient Instructions: Apixaban (By mouth) (Eliquis), Pulmonary Embolism (DC), Pneumonia (DC), Opioid Safety Discharge Attestations Time Spent in Discharge Care*: greater than 30 min Specific Discharge Activities: educating patient and educating and/or supporting family/caregiver Other discharge activites (optional): Call pharmacy to confirm dosage of starter pack. Quality Metrics Clinical Quality Measures During this hospital stay, did patient experience: VTE Contraindication to Overlap Therapy: Overlap therapy prescribed VTE Discharge Education: Education about anticoagulant therapy/Care Notes given Deep Vein Thrombosis/Pulmonary Embolism Present on Admission: Yes Contraindication to Pharm VTE Prophylaxis: VTE prophylaxis given Coding Level of Care Code Acute Chg FW DC note Diagnoses Pulmonary embolism I26.99 Exertional dyspnea R06.00 Essential hypertension I10 Mixed hyperlipidemia E78.2 Pulmonary nodule 1 cm or greater in diameter R91.1
--- NOTE | 2021-02-09 12:22 | PC.NURSE ---
rcvd order from Dr Ames for home oxygen evaluation. global technical writer put order in.
== END 2021-02-09 14:57 | disposition home or self-care (01) ==
LOC: ER 18:19 → MEDSURG 18:21
PROVIDERS: Admitting Provider Internal Medicine; Emergency Provider Emergency Medicine; PCP Nurse Practitioner Family; Visit Provider Internal Medicine
DX: I26.94 Multiple subsegmental thrombotic pulmonary emboli without acute cor pulmonale (principal); J90 Pleural effusion, not elsewhere classified; E78.2 Mixed hyperlipidemia; R91.1 Solitary pulmonary nodule; I10 Essential (primary) hypertension; E55.9 Vitamin D deficiency, unspecified; I82.433 Acute embolism and thrombosis of popliteal vein, bilateral; I82.413 Acute embolism and thrombosis of femoral vein, bilateral; I51.89 Other ill-defined heart diseases; F17.210 Nicotine dependence, cigarettes, uncomplicated; Z79.82 Long term (current) use of aspirin; Z82.49 Family history of ischemic heart disease and other diseases of the circulatory system; Z79.899 Other long term (current) drug therapy
CPT/HCPCS: 36415; 71045; 71275; 80048; 80053; 83036; 83735; 83880; 84145; 84443; 84484; 85025; 85378; 85610; 87426; 93005; 93306; 93970; 94664; 96365; 96372; 96375; 99285; G0378; J0360; J1650; J1940; J3475; Q9967

== ENCOUNTER 2021-02-19 14:04 | Emergency (ER) | payer MEDICARE, SELFPAY ==
[2021-02-19 14:22] VITALS: BP 145/90; PULSE 105; RESP 19; TEMP 36.9; O2SAT 96; BMI 25.7
--- NOTE | 2021-02-19 16:21 | W.ED.SOB ---
HPI - SOB/Dyspnea General: Chief Complaint: Shortness of Breath/Dyspnea Stated Complaint: NEEDS FLUID DRAINED P/DR SOLIS Time Seen by Provider: 02/19/21 14:44 History of Present Illness: HPI Narrative: 70-year-old female sent to the emergency room by Dr. Solis. She has a pleural effusion also has a history of PE and is on anticoagulants. She having increasing shortness of breath Dr. Solis planned to do a thoracentesis. She is not in any acute distress at this time. MD elicited complaint: shortness of breath Pertinent past history: other (Lung CA pleural effusion PE) Timing: constant Severity: moderate Exacerbating factors: lying flat, exertion and coughing Relieving factors: oxygen, rest and upright position Known history of: COPD and other (Lung CAP) Associated symptoms: Reports chest congestion, cough and orthopnea; Deny abdominal pain, chest pain, diaphoresis, dizziness, extremity pain, fever(s), hemoptysis, lightheadedness, myalgias, nausea, palpitations, paresthesias, polydipsia, polyuria, rash, sense of impending doom, syncope or vomiting Treatment prior to arrival: oxygen Review of Systems Const: Denies: fever(s) or diaphoresis Card: Reports: orthopnea; Denies: chest pain, palpitations, lightheadedness or syncope Resp: Reports: chest congestion; Denies: hemoptysis GI: Denies: abdominal pain, nausea or vomiting Musc: Denies: extremity pain Neuro: Denies: dizziness Endo: Denies: polyuria or polydipsia PFSH ED PFSH: Medical History Bilateral lower extremity edema Chest pressure Dyspnea Encounter for medication management Essential hypertension Frequent UTI Murmur UTI symptoms Vitamin D deficiency Social History Smoking and tobacco status: former smoker Quit status (tobacco): has quit using tobacco Year quit tobacco: 2020 Former quit date comment: 1ppd x 50 years Physical Exam Const: COMMON NORMALS: no acute distress GENERAL APPEARANCE: cooperative and comfortable ORIENTATION/CONSCIOUSNESS: Yes awake, Yes oriented to person, Yes oriented to place and Yes oriented to time Resp: AUSCULTATION: rales Cardio: COMMON NORMALS: regular rhythm and No murmurs present (Cardio) RATE: tachycardic RHYTHM: regular rhythm Neuro: SENSORIUM/ORIENTATION: Yes oriented to person, Yes oriented to place and Yes oriented to time Skin: COMMON NORMALS: no rashes or lesions noted GENERAL SKIN EXAM: no rashes or lesions noted Course Vital Signs: Vital signs: Vital Signs Temperature 98.4 F 02/19/21 14:22 Pulse Rate 105 H 02/19/21 14:22 Respiratory Rate 19 H 02/19/21 14:22 Blood Pressure 145/90 02/19/21 14:22 Pulse Oximetry 96 02/19/21 14:22 MDM - SOB/Dyspnea MDM Narrative: Medical decision making narrative: Dr. Solis is coming to do a thoracentesis. See his notes. Lab Data: Labs: Lab Results 02/19/21 16:35 Fluid Color Red Fluid Appearance Cloudy Fluid WBC 3395 /uL /uL Fluid RBC 26.000 10^3/uL 10 ^3/uL Fld Polynuclear WB Cs # 0.073 Fld Polynuclear WB Cs % 2.200 % % Fl Mononucl WBCs # (Auto) 3.322 Fl Mononuclear % A uto 97.800 % % Pleural pH 7.00 (6.5-7.5) Pleural Total Prot ein 4.9 g/dL g/dL Pleural LDH 1199 U/L U/L Pleural Glucose 33.0 mg/dL mg/dL Discharge Plan Discharge Patient Disposition: Home Clinical Impression: Pleural effusion, Pulmonary embolism, DVT (deep venous thrombosis), Pulmonary nodule 1 cm or greater in diameter Condition: Stable Prescriptions: No Action furosemide [Lasix] 20 mg tablet 10 - 20 mg PO DAILY 30 Days Qty: 30 RF: 0 multivitamin Tablet 1 tab PO DAILY RF: 0 zinc 50 mg Tablet 50 mg PO DAILY RF: 0 cholecalciferol (vitamin D3) [Vitamin D3] 25 mcg (1,000 unit) Capsule 25 mcg PO DAILY RF: 0 elderberry fruit 200 mg Capsule 200 mg PO DAILY RF: 0 Eliquis DVT-PE Treat 30D Start 5 mg (74 tabs) tablets,dose pack See Rx Instructions .ROUTE .COMPLEX Qty: 74 RF: 0 Discharge Orders: Discharge ED (Routine); Ordered 02/19/21 Ordered By: Gamal Moore Referrals: DB Tan, CATERING AND EVENTS MANAGER [Primary Care Provider] - Patient Instructions: Opioid Safety Activity Restrictions/Additional Instructions: Further orders for discharge per Dr. Solis. Coding Level of Care Code ED Labor Operator for Chg Fwd Exam Expanded Problem Focused
--- NOTE | 2021-02-19 17:37 | PC.NURSE ---
Sent from Dr Solis for lung drainage.
--- NOTE | 2021-02-19 18:57 | P.PCN_ITS ---
Procedure/Consent Time out: Time Out Performed: Yes Consent: Consent for Procedure: Consent obtained from patient Procedure Narrative: Name of the procedure: Left-sided thoracentesis under ultrasound guidance Indication: Suspicion for malignant pleural effusion Anesthetics: Local anesthesia with 1% lidocaine. IV pain medication: None. Description of the procedure: The procedure was explained to the patient in detail including the risks and a consent was obtained. The left hemithorax was scanned with ultrasound to find a safe fluid pocket. Large amount of free- flowing fluid was seen. There was a positive plankton sign. Following identification of the fluid pocket the site was marked. The site was cleaned using sterile technique. Lidocaine 1% was injected into the skin and the subcutaneous tissue. Subsequently, the periosteum in the parietal pleural was also anesthetized using lidocaine. The pleural space was entered in the posterior axillary line in the left eighth intercostal space. Serosanguineous fluid was aspirated. [id number] cc of fluid was aspirated. Sample: The pleural fluid was sent for cell count and differential, pH, protein, LDH, Gram stain and culture, and cytology. Complications: None Acute Procedures Epistaxis Control: Time out performed: Yes
[2021-02-19 20:46] LABS: Body Fluid Polynuclear #Cells 0.073; Body Fluid WBC 3395 /uL; Monocytes # Body Fluid 3.322
[2021-02-19 21:07] LABS: Apprearance, Body Fluid CLOUDY; Color, Body Fluid RED; Total Protein Pleural Fluid 4.9 g/dL
[2021-02-19 21:18] LABS: LDH Pleural Fluid 1199 U/L
== END 2021-02-19 17:39 | disposition home or self-care (01) ==
PROVIDERS: Internal Medicine Critical Care Medicine; Emergency Provider Family Medicine; PCP Nurse Practitioner Family
DX: J90 Pleural effusion, not elsewhere classified (principal); I26.99 Other pulmonary embolism without acute cor pulmonale; I82.409 Acute embolism and thrombosis of unspecified deep veins of unspecified lower extremity; R91.1 Solitary pulmonary nodule; Z79.01 Long term (current) use of anticoagulants; I10 Essential (primary) hypertension; Z87.891 Personal history of nicotine dependence
CPT/HCPCS: 82945; 83615; 83986; 84157; 88112; 88305; 89050; 99283

== ENCOUNTER 2021-02-25 13:11 | Outpatient (CLI) | payer MEDICARE, SELFPAY ==
--- NOTE | 2021-02-25 13:15 | XR_ITS ---
WS: [id number] PA and lateral chest, 02/25/2021 Clinical Data: pleural effusion Comparison: Portable chest, 02/08/2021. Findings: The left pleural effusion has increased compared to the prior exam. The right lung remains clear. The heart size has not changed. There are clips in the right upper quadrant from a cholecystec zana. XR/XR chest 2V* [id number] Impression: Increase in left pleural effusion.
== END 2021-02-25 13:12 | disposition home or self-care (01) ==
PROVIDERS: PCP Nurse Practitioner Family; Visit Provider Internal Medicine Critical Care Medicine
DX: J90 Pleural effusion, not elsewhere classified (principal)
CPT/HCPCS: 71046

== ENCOUNTER → 2021-02-26 12:03 | Day surgery (SDC) | payer MEDICARE, SELFPAY ==
[2021-02-26 12:43] VITALS: BP 129/81; PULSE 100; RESP 18; TEMP 36.6; O2SAT 97
[2021-02-26 12:51] VITALS: BMI 26.5
[2021-02-26 13:00] VITALS: BP 127/84; PULSE 99; RESP 18; O2SAT 97
[2021-02-26 13:21] VITALS: BP 159/92; PULSE 94; RESP 20; O2SAT 95
--- NOTE | 2021-02-26 13:23 | XR_ITS ---
WS: [id number] Portable AP upright chest, 02/26/2021 Clinical Data: post thoracentesis Comparison: PA and lateral chest, 02/25/2021. Findings: There is a marked decrease in left pleural effusion following thoracentesis. No pneumothora x is seen. The right lung remains clear. XR/XR chest 1V portable [id number] Impression: Decrease in left pleural effusion after thoracentesis
--- NOTE | 2021-02-26 13:34 | P.PCN_ITS ---
Procedure/Consent Time out: Time Out Performed: Yes Consent: Consent for Procedure: Consent obtained from patient Procedure Narrative: Name of the procedure: Left-sided thoracentesis under ultrasound guidance Indication: Suspicion for malignant pleural effusion Anesthetics: Local anesthesia with 1% lidocaine. IV pain medication: None. Description of the procedure: The procedure was explained to the patient in detail including the risks and a consent was obtained. The left hemithorax was scanned with ultrasound to find a safe fluid pocket. Large amount of free- flowing fluid was seen. There was a positive plankton sign. Following identification of the fluid pocket the site was marked. The site was cleaned using sterile technique. Lidocaine 1% was injected into the skin and the subcutaneous tissue. Subsequently, the periosteum in the parietal pleural was also anesthetized using lidocaine. The pleural space was entered in the posterior axillary line in the left eighth intercostal space. Bloody fluid was aspirated. [id number] cc of fluid was aspirated. Sample: The pleural fluid was sent for cell count and differential, cytology Complications: None Chest x-ray: Improved left-sided pleural effusion. Acute Procedures Epistaxis Control: Time out performed: Yes
[2021-02-26 13:40] VITALS: BP 138/90; PULSE 97; RESP 18; O2SAT 94
--- NOTE | 2021-02-26 13:58 | PC.NURSE ---
pt discharged at 1345 with no complaints.
[2021-02-26 17:28] LABS: Body Fluid Polynuclear #Cells 0.398; Body Fluid WBC 2912 /uL; Color, Body Fluid RED; Monocytes # Body Fluid 2.514
[2021-02-26 17:29] LABS: Apprearance, Body Fluid BLOODY
[2021-03-09 10:36] LABS: Miscellaneous Test See Scanned Lab Rpt
== END ==
PROVIDERS: PCP Nurse Practitioner Family; Visit Provider Internal Medicine Critical Care Medicine
DX: J90 Pleural effusion, not elsewhere classified (principal)
CPT/HCPCS: 32554; 71045; 80500; 87015; 87070; 87075; 87116; 87205; 87206; 87801; 88112; 88271; 88275; 88305; 89050

== ENCOUNTER 2021-03-02 02:12 | Inpatient (IN) | payer MEDICARE, SELFPAY ==
[2021-03-02] VITALS (73 sets, daily range): BP systolic 98–154; BP diastolic 55–104; PULSE 85–106; RESP 12–40; TEMP 36–36.8; O2SAT 93–100; BMI 26.5
--- NOTE | 2021-03-02 02:17 | XRR_ITS ---
PROCEDURE INFORMATION: Exam: XR Chest Exam date and time: 03/02/2021 2:17 AM Age: 70 years old Clinical indication: Dyspnea TECHNIQUE: Imaging protocol: XR of the chest. Views: 1 view. COMPARISON: CR XR chest 1V portable [id number] 02/26/2021 1:27 PM FINDINGS: Lungs: Unremarkable. No consolidation. Pleural spaces: Moderate left pleural effusion, increased since the previous examination. Heart/Mediastinum: There is mild cardiomegaly. Bones/joints: Unremarkable. XR/XR chest 1V portable [id number] IMPRESSION: 1. Moderate left pleural effusion, increased since the previous examination. 2. Mild cardiomegaly. Radiation Dose CTDIVOL = (mGy): DLP = (mGy-cm)
--- NOTE | 2021-03-02 02:18 | ECG_ITS ---
[facility] Test Date: 2021-03-02 Pat Name: Rima Manuel Department: Room: Gender: Female Assistant Drafter: : 1950 Requested By: Donovan Jenkins Order Number: [id number] Reading MD: Anna Mcgovern M.D. Measurements Intervals [place] Rate: 94 P: -2 TX: 124 QRS: 49 QRSD: 101 T: 29 QT: 369 QTc: 462 Interpretive Statements SINUS RHYTHM Compared to ECG 02/08/2021 09:42:53 No significant changes Electronically Signed On 03-02-2021 21:54:25 VENEER MATCHER by Anna Mcgovern M.D. [id number]
--- NOTE | 2021-03-02 03:10 | ED_ITS ---
HPI - General Adult General: Chief complaint: Shortness of Breath/Dyspnea Stated complaint: SOB, Fluid on Lungs Time Seen by Provider: 03/02/21 02:45 History of Present Illness: HPI narrative: Patient is 70-year-old female with history of lung cancer, VTE on Eliquis, CHF on Lasix 20 mg who presents the emergency room with complaints of acute dyspnea since earlier this evening. Patient has had 2 episodes of significant pleural effusion requiring thoracentes is most recently, patient had a thoracentesis 3 days ago. Since then, patient has had worsening shortness of breath x1 day. Patient denies any fever/chills, infection, chest pain, nausea/vomiting, abdominal pain, diarrhea melena or hematochezia. No other focal complaints at this time. Patient is compliant with furosemide 20 mg daily. Onset: 8 hrs ago Duration: ongoing Location:home Severity:moderate Review of Systems Narrative: Constitutional: No fever, no chills. HEENT: No vision changes CV: No chest pain, no palpitations PULM: no cough, +dyspnea. GI: No abdominal pain, no N/V/D. : No dysuria MSKEL: No muscle pain SKIN: No new rashes, no lesions. NEURO: No headache, no focal weakness. HEME: No visible bruises PSYCH: Normal mood PFSH ED PFSH: Medical History Bilateral lower extremity edema Chest pressure Dyspnea Encounter for medication management Essential hypertension Frequent UTI Murmur UTI symptoms Vitamin D deficiency Social History Smoking and tobacco status: former smoker Quit status (tobacco): has quit using tobacco Year quit tobacco: 2020 Former quit date comment: 1ppd x 50 years Physical Exam Narrative: EXAM NARRATIVE: Head: Atraumatic Eyes: PERRL, conjunctiva without injection ENT: Mucous membrane moist NECK: Supple, ROM intact LUNGS: +decreased breath sounds L side CV: regular tachycardia ABDOMEN: Soft, nontender in all quadrants EXTREMITY: Normal ROM SKIN: No rash or erythema NEURO: Awake and alert, no focal motor deficits PSYCH: Normal mood and affect Course Vital Signs: Vital signs: Vital Signs Temperature 96.8 F L 03/02/21 02:45 Pulse Rate 103 H 03/02/21 02:45 Respiratory Rate 32 H 03/02/21 02:45 Blood Pressure 124/62 03/02/21 02:45 Pulse Oximetry 94 03/02/21 02:45 MDM - General Adult MDM Narrative: Medical decision making narrative: 70-year-old female with history of smoking, hypertension, lung cancer, CHF presenting to the emergency room with acute dyspnea. Last thoracentesis on 02/19/2021. On exam, patient is noted to be satting greater than 95%. Patient has decreased breath sounds on the left side. X-ray showed large pleural effusion on the left. Patient will need repeated thoracentesis. Patient is also noted to have a hemoglobin 6.5 decreased from eleven 1 month ago. Patient has no melena hematochezia, hemoptysis. Suspect that perhaps patient may have slow bleed since she is on Eliquis and to the pleural cavity. Rectal exam _ Troponin of 133 new compared to prior. S/p aspirin. Will hold anticoagulation at this time. Disposition: Admission for thoracentesis. Lab Data: Labs: Lab Results 03/02/21 03/02/21 03:36 03:36 WBC 10.1 10^3/uL H 10 ^3/uL (4.0-10.0) RBC 2.39 10^6/uL L 10 ^6/uL (4.1-5.3) Hgb 6.4 g/dL L* g/dL (11.5-15.3) Hct 21.4 % L % (37.0-47.0) MCV 89.5 fl fl (81-99) MCH 26.8 pg L pg (28.0-34.0) MCHC 29.9 g/dL L g/dL (30.0-36.0) RDW 14.2 % % (12.1-15.1) Plt Count 138 10^3/cmm 10^3 /cmm (130-400) MPV 11.0 fL H fL (7.4-10.4) Neut % (Auto) 73.2 % % Lymph % (Auto) 17.8 % % [place] % (Auto) 6.1 % % Eos % (Auto) 1.3 % % Baso % (Auto) 0.4 % % Neut # (Auto) 7.43 10^3/uL 10^3 /uL (1.8-7.7) Lymph # (Auto) 1.8 10^3/uL 10^3/ uL (0.8-4.8) [place] # (Auto) 0.6 10^3/uL 10^3/ uL (0.2-0.9) Eos # (Auto) 0.1 10^3/uL 10^3/ uL (0.0-0.8) Baso # (Auto) 0.0 10^3/uL 10^3/ uL (0.0-0.1) Nucleated RBC % (a uto) 0 % % Nucleated RBCs # 0.0 /100WBC /100W BC Troponin T Baselin e 132 ng/L H* ng/L (0-10) Imaging Data^: Other Imaging: Radiologist's impression: [employer] [id number] ReportSigned Patient: Rima Manuel #: [id number]: [id number]#:[id number]/Sex: 70 / FADM Date: 03/02/21Loc: ERRoom/Bed:Attending Dr: Ordering Provider/Ordering MD: Donovan Jenkins MD Date of Service: 03/02/21 Procedure(s): XR chest 1V portable [id number] Accession Number(s): [id number] Report Number: [id number] PROCEDURE INFORMATION: Exam: XR Chest Exam date and time: 03/02/2021 2:17 AM Age: 70 years old Clinical indication: Dyspnea TECHNIQUE: Imaging protocol: XR of the chest. Views: 1 view. COMPARISON: CR XR chest 1V portable [id number] 02/26/2021 1:27 PM FINDINGS: Lungs: Unremarkable. No consolidation. Pleural spaces: Moderate left pleural effusion, increased since the previous examination. Heart/Mediastinum: There is mild cardiomegaly. Bones/joints: Unremarkable. XR/XR chest 1V portable [id number] IMPRESSION: 1. Moderate left pleural effusion, increased since the previous examination. 2. Mild cardiomegaly. Radiation Dose CTDIVOL = (mGy): DLP = (mGy-cm) Dictated By:Priscila Azul By:Priscila Azul Date/Time:03/02/21 0341DD/ 0217 Discharge Plan Discharge Patient Disposition: Admitted As Inpatient Clinical Impression: Pleural effusion, Dyspnea, Anemia, Elevated troponin I level Condition: Stable Coding Level of Care Code ED Area Intelligence Technician for Nikko Perez
[2021-03-02 03:40] LABS: Basophils % 0.4 %; Eosinophils # 0.1 10^3/uL (0.0-0.8); Eosinophils % 1.3 %; Hematocrit 21.4 % (37.0-47.0); Lymphocytes # 1.8 10^3/uL (0.8-4.8); Lymphocytes % 17.8 %; Mean Corpuscular HGB Conc 29.9 g/dL (30.0-36.0); Mean Corpuscular Hemoglobin 26.8 pg (28.0-34.0); Mean Corpuscular Volume 89.5 fl (81-99); Monocytes # 0.6 10^3/uL (0.2-0.9); Monocytes % 6.1 %; Neutrophils # 7.43 10^3/uL (1.8-7.7); Neutrophils % 73.2 %; Nucleated Red Blood Cells % 0 %; Platelet Count 138 10^3/cmm (130-400); Red Blood Count 2.39 10^6/uL (4.1-5.3); Red Cell Distribution Width 14.2 % (12.1-15.1); White Blood Count 10.1 10^3/uL (4.0-10.0)
[2021-03-02 03:52] LABS: Hemoglobin 6.4 g/dL (11.5-15.3)
[2021-03-02 03:59] LABS: Troponin(5th) Baseline 132 ng/L (0-10)
[2021-03-02 04:14] LABS: Anion Gap 19.9 (5-19); Blood Urea Nitrogen 24 mg/dL (8-23); Calcium 7.9 mg/dL (8.5-10.5); Carbon Dioxide 19 mmol/L (22-29); Chloride 93 mmol/L (98-107); Glomerular Filtration Rate 37.4 mL/min (90-130); Glucose 122 mg/dL (65-115); NT Pro B Type Natriuretic Pept 339 pg/mL (0-125); Osmolality Calculated 271 mOsm/kg (285-295); Potassium 3.9 mmol/L (3.5-5.1); Sodium 128 mmol/L (136-145)
[2021-03-02] MEDS: aspirin 325 mg Tablet PO (04:29)
[2021-03-02 05:12] LABS: SARS Covid-2 Antigen Negative (Negative)
[2021-03-02 06:56] LABS: Alanine Aminotransferase 9 U/L (0-33); Albumin Level 2.8 g/dL (3.5-5.2); Alkaline Phosphatase 59 IU/L (35-105); Anion Gap 19.1 (5-19); Aspartate Amino Transferase 19 U/L (0-32); Blood Urea Nitrogen 24 mg/dL (8-23); Calcium 7.9 mg/dL (8.5-10.5); Carbon Dioxide 19 mmol/L (22-29); Chloride 95 mmol/L (98-107); Globulin 2.7 g/dL (1.3-4.6); Glomerular Filtration Rate 40.7 mL/min (90-130); Glucose 106 mg/dL (65-115); Osmolality Calculated 272 mOsm/kg (285-295); Potassium 4.1 mmol/L (3.5-5.1); Sodium 129 mmol/L (136-145); Total Bilirubin 0.3 mg/dL (0.15-1.2); Total Protein 5.5 g/dL (6.6-8.7)
[2021-03-02 07:03] LABS: Troponin 5 2HR 116.4 ng/L (0-10); Troponin 5 2HR Delta -15.6 ABS# (0-10)
--- NOTE | 2021-03-02 07:06 | USCV_ITS ---
Rima Manuel Age: 70 Gender: F : 1950 Exam Date: 03/02/2021 08:19 Ordering Phys: Paige Lawler MD Technologist: Gay Farooq Exam Location: [facility] [place] Indication: H/O BLE DVT HISTORY: History of deep venous thrombosis. PROCEDURES: Venous duplex imaging was performed in bilateral lower extremities. The following venous structures were evaluated: common femoral vein, profunda vein, proximal portion of the greater saphenous vein, superficial femoral vein, and the popliteal vein. In addition, the posterior tibial and peroneal trunk were evaluated. Serial compression, augmentation maneuvers, and spectral Doppler flow evaluation were performed. FINDINGS: + DVT SEEN IN BILAT CONCLUSIONS Bilateral occlusive DVT simliar to 02/08/21 Right DVT in the femoral vein and popliteal veins Left DVT in the common femoral vein and popliteal veins Roger Rivera MD (Electronically Signed) Final Date: 02 March 2021 17:20 S
--- NOTE | 2021-03-02 07:06 | USCV_ITS ---
Rima Manuel Age: 70 Gender: F : 1950 Exam Date: 03/02/2021 08:07 Ordering Phys: Paige Lawler MD Technologist: Gay Farooq [place] [facility] [place]: NSTEMI BP: 113 / 55 HR: 90 Rhythm: Sinus Technical Quality: Technically difficult study MEASUREMENTS (Male / Female) Normal Values 2D ECHO LV Diastolic Diameter PLAX 3.0 cm 4.2 - 5.9 / 3.9 - 5.3 cm LV Systolic Diameter PLAX 2.0 cm IVS Diastolic Thickness 0.8 cm 0.6 - 1.0 / 0.6 - 0.9 cm IVS Systolic Thickness 1.3 cm LVPW Diastolic Thickness 1.5 cm 0.6 - 1.0 / 0.6 - 0.9 cm LVPW Systolic Thickness 1.4 cm LV Ejection Fraction 2D Teich 64.6 % LV Ejection Fraction MOD 2C 55.3 % LV Ejection Fraction 2C AL 56.5 % LA Width 2.0 cm LA Height 3.2 cm RA Width 2.0 cm RA Height 3.3 cm DOPPLER Right Atrial Pressure 3.0 mmHg FINDINGS Left Ventricle Normal LV size and ejection fraction of 55%. No gross wall motion of normalities. Right Ventricle Two Echodense lesions, were noted in the right ventricle measuring 2.5 x 1.4 cm, and 1.3 x 1.0 centimeter. 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 Right Atrium Appeared to be of normal size Left Atrium Appeared to be of normal size Mitral Valve No gross abnormalities noted Aortic Valve No gross abnormalities noted Tricuspid Valve No gross abnormalities noted Pulmonic Valve Pulmonic valve not well visualized. Pericardium Trivial pericardial effusion. Echodense lesions were found to be attached to the visceral pericardium of the right ventricular free wall. The inferior vena cava is found to be dilated measuring 2.0 cm Aorta Not visualized well CONCLUSIONS Normal LV size and ejection fraction of 55%. No gross wall motion abnormalities Two Echodense lesions, were noted in the right ventricle measuring 2.5 x 1.4 cm, and 1.3 x 1.0 centimeter. 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 Other lesions cannot be occluded. Trivial pericardial effusion. Echodense lesions were found to be attached to the visceral pericardium of the right ventricular free wall, possible metastatic lesions. Trivial pericardial effusion Dilated inferior vena cava, measuring 2.0 cm Compared to the study from 02/08/2021, the lesions in the right ventricle appeared to be new Dr Anna Mcgovern MD FAC (Electronically Signed) Final Date: 02 March 2021 18:26 S
--- NOTE | 2021-03-02 07:08 | PC.NURSE ---
0700 recd. from e.d. per cart resp. labored aylin. with activity.
--- NOTE | 2021-03-02 07:10 | PM.HP ---
Providers/Chief Complaint Admitting Physician: Paige Lawler MD Primary Care Provider: CLOVSI Beltrán Chief Complaint: SOB, Fluid on Lungs History of Present Illness Rima Manuel is a 70 year old female recently admitted to the hospital between February 07 to February 09 after being diagnosed with a DVT and PE for which she was on anticoagulation with Eliquis. Symptoms at that time included progressively worsening shortness of breath. Incidental note was also made at that time on CTA for lung mass and left-sided pleural effusion, with high suspicion for malignancy. After discharge she subsequently underwent diagnostic and therapeutic thoracentesis on 02/19 and 02/26. 1800 cc of fluid was removed. On most recent thoracentesis the aspirate appeared to be bloody. Cytology preliminary shows clusters of atypical cells, immunohistochemical stains are still pending for evaluation. flow cytometry and lymphoma work-up were negative.. Patient states she had been on anticoagulation since her discharge on 02/09 without interruption. Return to the ER today with worsening shortness of breath, patient states she was not able to perform her usual activities, extremely short of breath on walking short distances within the house along with associated generalized weakness. She has additionally been noted increased swelling in her lower extremities in spite of using Lasix 20 mg p.o. daily. Echocardiogram from her admission on 1024 showed LVEF of 55 to 60% and grade 1 diastolic dysfunction without other gross abnormalities. On evaluation today she was found to have a significant hemoglobin drop to ~6g, previously normal between 02-26. Reports some black stools however states these are well formed, frequency is once per day. Has not noted bleeding in any other site. Denies any hemoptysis. Additionally also noted to have a baseline troponin of 132. Patient endorses chest pain, however states this is related to left-sided chest discomfort since thoracentesis and has been going on for a few weeks. No fever or URI symptoms. Review of Systems General: Reports: 10 or more systems reviewed and unremarkable except in HPI and below Const: Denies: fever(s), chills or body aches Eyes: Denies: change in vision, blurry vision or photophobia ENMT: Reports: hoarseness; Denies: throat pain, enlarged tonsils, odynophagia or nasal congestion Card: Denies: chest pain, palpitations, irregular heart rhythm, edema, swelling of feet/ankles, lightheadedness, pre-syncope, dyspnea on exertion or orthopnea Resp: Denies: dyspnea, productive cough, non-productive cough, wheezing, stridor, pain on inspiration, change in phlegm color, hemoptysis or chest congestion GI: Denies: abdominal pain, nausea, vomiting, hematemesis, coffee ground emesis, dysphagia, heartburn, diarrhea, constipation, GI cramping, change in stool character, hematochezia or melena : Denies: flank pain, difficulty voiding, dysuria, urinary frequency, urinary urgency, urinary hesitancy or hematuria Musc: Denies: neck pain, back pain, extremity pain, joint swelling, joint warmth or deformity Neuro: Denies: headache(s), numbness in extremities, weakness in extremities, sensory changes, difficulty walking, frequent falls, dizziness, vertigo, behavioral changes, Slurred speech present or seizure-like activity Psych: Denies: anxiety, depression, suicidal ideation or homicidal ideation Endo: Denies: polyuria, polydipsia, tired all the time, cold intolerance or hot flashes Ernie/Lymph: Denies: easy bruising or easy bleeding Medications/Allergies Home Medications Medication Instructions Recorded Confirmed Last Taken Type cholecalciferol (vitamin D3) 25 mcg PO DAILY 02/07/21 02/26/21 02/18/21 History [Vitamin D3] elderberry fruit 200 mg PO DAILY 02/07/21 02/26/21 02/18/21 History multivitamin 1 tab PO DAILY 02/07/21 02/26/21 02/18/21 History zinc 50 mg PO DAILY 02/07/21 02/26/21 02/18/21 History apixaban [Eliquis DVT-PE Treat 30D See Rx Instructions .ROUTE 02/09/21 02/26/21 02/26/21 10:00 Rx Start] .COMPLEX #74 ea furosemide 20 mg tablet 10 - 20 mg PO DAILY 30 Days #30 tab 02/15/21 02/26/21 02/26/21 06:00 Rx Allergies Allergy/AdvReac Type Severity Reaction Status Date / Time No Known Allergies Allergy Verified 02/19/21 11:44 PFSH Acute PFSH: Medical History Bilateral lower extremity edema Chest pressure Dyspnea Encounter for medication management Essential hypertension Frequent UTI Murmur UTI symptoms Vitamin D deficiency Social History Smoking and tobacco status: former smoker Quit status (tobacco): has quit using tobacco Year quit tobacco: 2020 Former quit date comment: 1ppd x 50 years Vitals/I&O/Wt Last Vital Signs Temp 96.8 F L 03/02/21 02:45 Pulse 92 03/02/21 06:33 Resp 24 H 03/02/21 06:33 BP 128/68 03/02/21 06:33 Pulse Ox 97 03/02/21 06:33 Weight last 48 hrs Weight 68.039 kg Physical Exam Narrative: EXAM NARRATIVE: General: No acute distress, AO x3, pale appearing lady HEENT: PERRLA, pupils bilaterally equal and reactive, pallors not present Chest: Normal vesicular breath sounds, no added sounds, equal good air entry bilaterally CVS: S1-S2 regular, no murmurs, no tachycardia, no gallops, no rubs Abdomen: Soft, nontender, no organomegaly, bowel sounds present Neuro: No focal deficits, no facial deformity, AO x3, power 5/5 in all limbs Extremities: B/L LE non pitting edema Data : 03/02/21 03:36 03/02/21 06:01 A&P Assessment and plan (1) Anemia: Significant acute anemia with hemoglobin dropped from 11-6 today. Transfuse 2 units of PRBC Denies bleeding at any other site, however endorses black well-formed stools. Will check fecal occult blood. Protonix 40 mg IV every 12 hours in the interim. No history of hematemesis. Suspicion also for hemothorax given recent procedures x2 and patient being on anticoagulation with Eliquis. Avoiding CTA currently due to KEITH with creatinine at 1.4 Hold all anticoagulation for now, patient has been counseled as to the risk and benefit of DVT/PE progression versus risk of bleeding. At this time risk of bleeding appears to outweigh risk of clot progression and after extensive discussion it has been decided to place anticoagulation on hold for now. Status: Acute (2) DVT (deep venous thrombosis): Recent DVT and pulmonary embolism 3 weeks ago for which patient was on Eliquis. Holding all anticoagulation for now while undergoing bleeding work-up as above. Lower extremity Duplex to assess for clot progression, possible consideration for IVC filter if significant clot burden Status: Acute (3) Pulmonary embolism: DVT/PE as above Holding oral anticoagulation Status: Acute (4) NSTEMI (non-ST elevated myocardial infarction): Reports left-sided chest discomfort, however this has been going on unchanged for the past few weeks. Relates that discomfort is somewhat increased since undergoing thoracentesis No gross new ST-T wave changes on EKG. Baseline troponin at 132, concern for type II WI due to significant drop in hemoglobin Transfusion as above, target hemoglobin of 8. Received 325 mg of aspirin overnight, holding further doses for now. Started on atorvastatin 40 mg p.o. bedtime. repeat echocardiogram to assess for interim development of signs of ischemia, wall motion abnormalities Status: Acute (5) Pleural effusion: Suspected to be malignant effusion, cytology with clusters of atypical cells. Immunohistochemical stains are pending at this time. Consideration also for possible hemothorax given significant drop in hemoglobin Holding anticoagulation. Status: Acute Attestations Medical Necessity Statement*: Anticipate greater than 2 midnight admission for above defined care Coding Level of Care Code Acute Information Systems Architect for [facility] Fwd Diagnoses Anemia D64.9 DVT (deep venous thrombosis) I82.409 Pulmonary embolism I26.99 NSTEMI (non-ST elevated myocardial infarction) I21.4 Pleural effusion J90
[2021-03-02 07:33] LABS: Chol HDL Ratio 4.97 mg/dL (0.0-4.40); Cholesterol 164 mg/dL (0-200); HDL Cholesterol 33 mg/dL (60-100); LDL Cholesterol Calculated 108 mg/dL (50-129); LDL HDL Ratio 3.27 RATIO (0.00-3.22); Triglycerides 113 mg/dL (0-150)
--- NOTE | 2021-03-02 08:49 | PM.CONSULT ---
Providers/Reason For Consult Consulting Physician/Specialty*: KRISTI Mcgovern MD/cardiology Reason for Consult*: Patient with elevated troponin T, pulmonary embolism, DVT, severe anemia Attending Physician: Pavel Diaz MD Primary Care Provider: CLOVIS Beltrán History of Present Illness History of Present Illness Rima Manuel is a 70 year old female who was recently discharged hospital where she was admitted with complaints of progressive shortness of breath. She was found to have a lung mass, pleural effusion, pulmonary embolism and bilateral DVT. She was started on oral anticoagulation. Symptoms somewhat improved. She was discharge home to have further work-up and management as an outpatient. Since her hospital discharge, she had 2 thoracentesis for large left-sided pleural effusion. This time, she is presenting with worsening shortness of breath and weakness. She was found to have a large left-sided pleural effusion. She also was found to have a significant drop in her hemoglobin to 6.4 from 12.2, 2 weeks ago. She was found to have elevated troponin T. Cardiology consult is requested to c further cardiac evaluation and recommendations; also to consider the feasibility of an IVC filter. This patient has no previous history for any DVT or pulmonary embolism. She has no previous history for any coronary artery disease, myocardial infarction or congestive heart failure. She was recently diagnosed with high blood pressure. No history for CVA, peripheral artery disease, kidney disease, liver disease or any bleeding disorders. She has no hematemesis or melena. No chest pain. Review of Systems Narrative: CONSTITUTIONAL: No fever or chills. EYES: No blurring of vision or other visual disturbances lately. ENT: No hoarseness of voice, auditory disturbances or sore throat. CARDIOVASCULAR: As mentioned above. RESPIRATORY: As mentioned above GASTROINTESTINAL: No hematemesis or melena. GENITOURINARY: No dysuria or hematuria. INTEGUMENTARY: No skin rashes or history of skin cancer. NEURO: No transient ischemic attacks or amaurosis. PSYCHIATRIC: No history of psychosis or major depression. HEMATOLOGIC: Acute anemia as mentioned above ENDOCRINE: No history of polyuria or polydipsia. MUSCULOSKELETAL: No recent joint pain or swelling. ALLERGY/IMMUNOLOGY: As mentioned above. Meds/Allergies Home Medications and Allergies Home Medications Medication Instructions Recorded Confirmed Last Taken Type cholecalciferol (vitamin D3) 25 mcg PO DAILY 02/07/21 03/02/21 02/18/21 History [Vitamin D3] elderberry fruit 200 mg PO DAILY 02/07/21 03/02/21 02/18/21 History multivitamin 1 tab PO DAILY 02/07/21 03/02/21 02/18/21 History zinc 50 mg PO DAILY 02/07/21 03/02/21 02/18/21 History apixaban [Eliquis DVT-PE Treat 30D See Rx Instructions .ROUTE 02/09/21 03/02/21 02/26/21 10:00 Rx Start] .COMPLEX #74 ea furosemide 20 mg tablet 10 - 20 mg PO DAILY 30 Days #30 tab 02/15/21 03/02/21 02/26/21 06:00 Rx Allergies Allergy/AdvReac Type Severity Reaction Status Date / Time No Known Allergies Allergy Verified 02/19/21 11:44 PFSH Acute PFSH: Medical History Bilateral lower extremity edema Chest pressure Dyspnea Encounter for medication management Essential hypertension Frequent UTI Murmur UTI symptoms Vitamin D deficiency Social History Smoking and tobacco status: former smoker Quit status (tobacco): has quit using tobacco Year quit tobacco: 2020 Former quit date comment: 1ppd x 50 years Female Reproductive History: Date of last menstrual period: 03/02/21 Vitals/I&O/Wt Last Vital Signs Temp 97.7 F 03/02/21 08:12 Pulse 94 03/02/21 08:12 Resp 20 H 03/02/21 08:12 BP 102/63 03/02/21 08:12 Pulse Ox 100 03/02/21 08:12 03/01/21 03/02/21 03/02/21 22:59 06:59 14:59 Intake Total 0 / 0 Balance 0 / 0 Weight last 48 hrs Weight 150 lb Physical Exam Narrative: EXAM NARRATIVE: GENERAL: The patient is alert and oriented times three. Not in any acute distress. HEENT: Moderate pallor no icterus or lymphadenopathy. The pupils are reactant to light. Oral cavity: There are no mucous membrane lesions. Funduscopic examination: The fundus is not visual. NECK: Trachea appears to be central. No masses noted. No JVD or thyromegaly appreciated. No carotid bruit. RESPIRATORY: Breath sounds are heard bilaterally. Intensity of the breath sounds are diminished in the left base. BREASTS: Deferred. HEART: PMI could not be palpated. No palpable precordial events. S1 and S2 are normal. No S3 or S4 heard. No pericardial rub or any click heard. ABDOMEN: No vessel pulsations or distention. No tenderness. No organomegaly appreciated. No abdominal bruit. Bowel sounds are normally heard. : Deferred. RECTAL: Deferred. EXTREMITIES: 1-2+ edema both lower extremities. No cyanosis. Peripheral pulses are palpable MUSCULOSKELETAL: No acute joint deformities or swelling SKIN: There are no significant rashes or ecchymosis noted NEUROPSYCHIATRIC: The patient is alert and oriented x3. Appears to be in a good mood. The higher functions are grossly within normal limits. No tremors or rigidity noted. Data Labs: Other Labs: Laboratory Last Values WBC 10.1 10^3/uL (4.0 -10.0) H 03/02/21 03:36 RBC 2.39 10^6/uL (4.1 -5.3) L 03/02/21 03:36 Hgb 6.4 g/dL (11.5-15 .3) L* 03/02/21 03:36 Hct 21.4 % (37.0-47.0 ) L 03/02/21 03:36 MCV 89.5 fl (81-99) 03/02/21 03:36 MCH 26.8 pg (28.0-34. 0) L 03/02/21 03:36 MCHC 29.9 g/dL (30.0-3 6.0) L 03/02/21 03:36 RDW 14.2 % (12.1-15.1 ) 03/02/21 03:36 Plt Count 138 10^3/cmm (130 -400) 03/02/21 03:36 MPV 11.0 fL (7.4-10.4 ) H 03/02/21 03:36 Neut % (Auto) 73.2 % 03/02/21 03:36 Lymph % (Auto) 17.8 % 03/02/21 03:36 Sequoyah % (Auto) 6.1 % 03/02/21 03:36 Eos % (Auto) 1.3 % 03/02/21 03:36 Baso % (Auto) 0.4 % 03/02/21 03:36 Neut # (Auto) 7.43 10^3/uL (1.8 -7.7) 03/02/21 03:36 Lymph # (Auto) 1.8 10^3/uL (0.8- 4.8) 03/02/21 03:36 Sequoyah # (Auto) 0.6 10^3/uL (0.2- 0.9) 03/02/21 03:36 Eos # (Auto) 0.1 10^3/uL (0.0- 0.8) 03/02/21 03:36 Baso # (Auto) 0.0 10^3/uL (0.0- 0.1) 03/02/21 03:36 Nucleated RBC % (a uto) 0 % 03/02/21 03:36 Nucleated RBCs # 0.0 /100WBC 03/02/21 03:36 Sodium 129 mmol/L (136-1 45) L 03/02/21 06:01 Potassium 4.1 mmol/L (3.5-5 .1) 03/02/21 06:01 Chloride 95 mmol/L (98-107 ) L 03/02/21 06:01 Carbon Dioxide 19 mmol/L (22-29) L 03/02/21 06:01 Anion Gap 19.1 (5-19) H 03/02/21 06:01 BUN 24 mg/dL (8-23) H 03/02/21 06:01 Creatinine 1.3 mg/dL (0.5-0. 9) H 03/02/21 06:01 GFR Calculation 40.7 mL/min (90-1 30) L 03/02/21 06:01 Glucose 106 mg/dL (65-115 ) 03/02/21 06:01 Calculated Osmolal ity 272 mOsm/kg (285- 295) L 03/02/21 06:01 Calcium 7.9 mg/dL (8.5-10 .5) L 03/02/21 06:01 Total Bilirubin 0.3 mg/dL (0.15-1 .2) 03/02/21 06:01 AST 19 U/L (0-32) 03/02/21 06:01 ALT 9 U/L (0-33) 03/02/21 06:01 Alkaline Phosphata se 59 IU/L (35-105) 03/02/21 06:01 Troponin T Baselin e 132 ng/L (0-10) H* 03/02/21 03:36 Troponin T 120 Min maribel 116.4 ng/L (0-10) H 03/02/21 06:01 Delta Troponin T -15.6 ABS# (0-10) L 03/02/21 06:01 NT-Pro-B Natriuret Pep 339 pg/mL (0-125) H 03/02/21 03:36 Total Protein 5.5 g/dL (6.6-8.7 ) L 03/02/21 06:01 Albumin 2.8 g/dL (3.5-5.2 ) L 03/02/21 06:01 Globulin 2.7 g/dL (1.3-4.6 ) 03/02/21 06:01 Triglycerides 113 mg/dL (0-150) 03/02/21 06:01 Cholesterol 164 mg/dL (0-200) 03/02/21 06:01 LDL Cholesterol, C alc 108 mg/dL (50-129 ) 03/02/21 06:01 HDL Cholesterol 33 mg/dL (60-100) L 03/02/21 06:01 LDL/HDL Ratio 3.27 RATIO (0.00- 3.22) H 03/02/21 06:01 Cholesterol/HDL Ra ridge 4.97 mg/dL (0.0-4 .40) H 03/02/21 06:01 Amorphous Sediment Not Reportable 03/02/21 07:45 SARS-CoV-2 Ag (Rap id) Negative (Negati ve) 03/02/21 04:20 Blood Type A Positive 03/02/21 04:27 Rho(D) Type Positive 03/02/21 04:27 Antibody Screen Negative 03/02/21 04:27 Crossmatch See Detail 03/02/21 04:27 Imaging^: CXR: My impression: Moderate to large left-sided pleural effusion. Mild cardiomegaly. No lung infiltrate noted. CT Chest: Radiologist's impression: From 02/07/2021 1. Occlusive pulmonary emboli in the anterior and lateral segmental branches and and subsegmental branches of the right lower lobe pulmonary artery. Nonocclusive pulmonary emboli in the superior and posterior segmental branches of the right lower lobe pulmonary artery. 2. The RV/LV ratio is 0.89, which is borderline upper normal. 3. Large left pleural effusion. 4. Compressive atelectasis in the the left lower lobe. 5. Scattered diverticula in the colon. No evidence for diverticulitis. 6. Spiculated nodule in the anterior left upper lobe with mediastinal and right axillary lymphadenopathy. Findings are concerning for a primary pulmonary neoplasm with associated metastatic disease. Recommend clinical correlation. 7. Incidental/nonacute findings are listed in the report. EKG^: EKG 1: I personally reviewed and interpreted this EKG as follows: My Interpretation: Sinus rhythm with a rate of 94 bpm. Some nonspecific T wave changes. A&P Assessment and plan (1) Elevated troponin: Most likely related to type II OR from the severe anemia. There is no significant delta at 2 hours. Status: Acute (2) Recurrent pleural effusion on left: Most likely the patient has malignant effusion. She may require repeat thoracentesis. Possibility of hemothorax causing the sudden drop is a strong consideration. Status: Acute (3) Severe anemia: Most likely from hemothorax. Patient received 2 units of blood transfusion. Status: Acute (4) Pulmonary embolism: Patient is clinically stable. No evidence of any hemodynamic compromise. Status: Acute Qualifiers: Pulmonary embolism type: other Chronicity: unspecified Acute cor pulmonale presence: unspecified Qualified Code(s): I26.99 - Other pulmonary embolism without acute cor pulmonale (5) DVT (deep venous thrombosis): No clinical evidence of any recurrence of DVT at this time. Status: Acute Qualifiers: DVT location: lower extremity Affected thrombotic vein of extremity: femoral Chronicity: unspecified Laterality: bilateral Qualified Code(s): I82.413 - Acute embolism and thrombosis of femoral vein, bilateral (6) Right ventricular mass: Nature of the right ventricular lesion is not clear. Most likely this may represent organized thrombus. Metastatic lesion cannot be excluded. Cardiac MRI would be appropriate to better delineate the mass. Status: Acute Additional A&P Information If the patient has an RV thrombus, aspiration thrombectomy may be an option. This needs to be done in a facility where there is expertise. The IVC filter may prevent the future PE. However if she is going for aspiration thrombectomy, we may have to hold off on the IVC filter at this point. I discussed with the patient and her family in detail about my current impression and the treatment options. The patient and the family understood this well. Patient has not yet decided whether she wants to go to another facility for this procedure or stay here. I also discussed the echocardiogram findings and the treatment options with the Dr. Diaz. Thank you for the opportunity to eval this patient and make these recommendations Coding Level of Care Code Acute Clearing Supervisor for [facility] Fwd History Detailed Exam Detailed Medical Decision Making High Complexity Diagnoses Elevated troponin R77.8 Recurrent pleural effusion on left J90 Severe anemia D64.9 Pulmonary embolism I26.99 Pulmonary embolism type: other Chronicity: unspecified Acute cor pulmonale presence: unspecified DVT (deep venous thrombosis) I82.413 DVT location: lower extremity Affected thrombotic vein of extremity: femoral Chronicity: unspecified Laterality: bilateral Right ventricular mass I51.89
--- NOTE | 2021-03-02 09:23 | CT_ITS ---
WS: [id number] CT HEAD TECHNIQUE: Noncontrast CT of the head obtained from the skullbase to the vertex. CLINICAL INFORMATION: nausea COMPARISON: None. DLP: 959.[address] scans at [facility] use at least one of these dose optimization techniques: automated e xposure control; mA and/or kV adjustment per patient size (includes targeted exams where dose is matc hed to clinical indication); or iterative reconstruction. FINDINGS: No evidence of intracranial hemorrhage. Moderate subcortical edema involving the left parasagittal pa rietal and occipital lobes measuring 4.0 x 2.7 cm suspicious for metastatic disease considering clini dione history. Subacute ischemia is less likely. Recommend further evaluation with MRI without and with gadolinium. No midline shift. No hydrocephalus. Paranasal sinuses and mastoid air cells are well aerated. .Normal visualized soft tissues. CT/CT head wo con* [id number] IMPRESSION: 1. No evidence of intracranial hemorrhage 2. Moderate subcortical edema involving the left parasagittal parietal and occ ipital lobes measuring 4.0 x 2.7 cm suspicious for metastatic disease consideri ng clinical history. Recommend further evaluation with MRI without and with emily olinium. 3. No hydrocephalus. No midline shift. Notified Pavel Diaz MD at 03/02/2021 11:04 AM.
--- NOTE | 2021-03-02 09:25 | CT_ITS ---
WS: [id number] CT ABDOMEN PELVIS TECHNIQUE: Contrast-enhanced CT of the abdomen and pelvis with coronal and sagittal reformatted image s. CLINICAL INFORMATION: lung tumor, anemia COMPARISON: None. DLP: 1369.[address] scans at [facility] use at least one of these dose optimization techniques: automated e xposure control; mA and/or kV adjustment per patient size (includes targeted exams where dose is matc hed to clinical indication); or iterative reconstruction. FINDINGS: Partially visualized moderate to large left pleural effusion. Compressive atelectasis left lower lobe . Right lower lobe is well aerated. Diffuse fatty infiltration of the liver. Normal portal vein and s plenic vein. Cholecystectomy clips. Adrenal glands are normal. Normal renal parenchymal enhancement. No hydronephrosis. Bilateral renal cysts. Largest cyst in the right measures 4.6 x 5.1 cm. Small esop hageal hiatal hernia. Normal pancreas. Adrenal glands are normal. Aortic calcification. Normal calibe r abdominal aorta. Urine distended bladder. Sigmoid diverticulosis. Tiny fat-containing umbilical hernia. No abdominal o r pelvic lymphadenopathy. No inguinal lymphadenopathy. Disc space narrowing L4-L5 and L5-S1. CT/CT abdomen pelvis w con* [id number] IMPRESSION: 1. Partially visualized moderate to large left pleural effusion with compressi ve atelectasis left lower lobe. 2. Mild diffuse fatty infiltration of the liver. Cholecystectomy clips. 3. No visualized adenopathy in the abdomen or pelvis. No inguinal lymphadenopa thy. 4. Urine distended bladder. 5. Bilateral renal cysts as described above. 6. No evidence of metastatic disease in the abdomen or pelvis.
[2021-03-02 09:33] LABS: Bilirubin Urine Neg (Negative); Blood Urine 2+ (Negative); Glucose Urine UA Norm (Normal); Ketones Urine Negative (Negative); Leukocyte Esterase Urine Negative (Negative); Nitrate Urine Negative (Negative); Protein Urine Neg (Negative); Urine Appearance SL Hazy (CLEAR); Urine Color Yellow (Yellow); Urobilinogen Urine Norm (Negative); pH Urine 5 (5-7)
[2021-03-02 09:53] LABS: Add Urine Culture? No; Bacteria Urine 1+ /hpf; RBC Urine 0-4 /hpf (0-2); Squamous Epithelial Cell Urine 0-4 /hpf (0-5); WBC Urine RARE /hpf (0-5)
[2021-03-02] MEDS: iodixanol 320 mg/mL 100mL Btl IV (10:57)
[2021-03-02] MEDS: dexamethasone 10 mg/mL INJ IVP (11:36)
[2021-03-02 11:42] LABS: INR 2.02 (0.8-1.2)
[2021-03-02 11:43] LABS: Partial Thromboplastin Time 34.2 SECONDS (23.9-36.7)
--- NOTE | 2021-03-02 13:26 | P.PN_ITS ---
Subjective Subjective: Interval history: Rima reports she is feeling tired. She is short of breath with exertion. History and physical reviewed. I discussed her case with her family, and multiple physicians. Medications: Reviewed: Yes Vitals/I&O/Wt Last Vital Signs Temp 97.5 F L 03/02/21 11:24 Pulse 93 03/02/21 11:24 Resp 22 H 03/02/21 11:24 BP 137/77 03/02/21 11:24 Pulse Ox 100 03/02/21 11:24 03/01/21 03/02/21 03/02/21 22:59 06:59 14:59 Intake Total 472 / 472 Output Total 150 / 150 Balance 322 / 322 Weight last 48 hrs Weight 68.039 kg Physical Exam 2 Narrative: EXAM NARRATIVE: General exam is a pale appearing female, no distress Neck is supple no lymphadenopathy or thyromegaly Cardiovascular regular rate and rhythm Lungs diminished breath sounds left lung, right clear Abdomen is soft, positive bowel sounds Extremities no cyanosis clubbing. 1+ edema is noted Data : 03/02/21 03:36 03/02/21 06:01 Micro: Microbiology 03/02/21 10:30 Occult Blood (FIT) - Final Stool Routine Collection A&P Assessment and plan (1) Anemia: Significant anemia. Etiology could include GI bleeding versus hemothorax Transfuse 2 units packed red blood cells. Check hemoglobin hematocrit following transfusion. Endorses some blackish stools but has not had significant volume, only 1 bowel movement a day. Check stool Hemoccult. Continue IV Protonix Reviewed with pulmonary briefly. They are considering appropriate timing of thoracentesis and/or Pleurx catheter Holding all anticoagulation. She still has significant clot burden in her legs. She is aware of the risks of holding anticoagulation. Status: Acute (2) DVT (deep venous thrombosis): Recent DVT and pulmonary embolism 3 weeks ago for which patient was on Eliquis. Now holding all anticoagulation. Secondary to this IVC filter is being considered. I have consulted remote sensing technician regarding this. Status: Acute (3) Pulmonary embolism: Unable to anticoagulate. Considering IVC filter. Status: Acute (4) NSTEMI (non-ST elevated myocardial infarction): Likely type II elevation Cardiology consulted Limited echo arranged Not candidate for anticoagulation Transfusion initiated Status: Acute (5) Pleural effusion: Suspected to be malignant effusion, cytology with clusters of atypical cells. Immunohistochemical stains are pending at this time. Consideration also for possible hemothorax given significant drop in hemoglobin Holding anticoagulation, discussing with pulmonary. Status: Acute Additional A&P Information Nausea. CT of head obtained today. This demonstrates a likely metastatic lesion left parietal. It has significant edema so dexamethasone was initiated. MRI will be obtained to make sure this is likely metastatic. CVA is in differential. Attestations Medical Necessity Statement*: Needs continued hospitalization secondary to severe symptomatic anemia, large left pleural effusion, recent PE and DVT still with significant clot burden with need for IVC filter Coding Level of Care Code Acute Nozzle Cement Sprayer Helper for Chg Fwd Diagnoses Anemia D64.9 DVT (deep venous thrombosis) I82.409 Pulmonary embolism I26.99 NSTEMI (non-ST elevated myocardial infarction) I21.4 Pleural effusion J90
--- NOTE | 2021-03-02 13:50 | PM.PN ---
Subjective Subjective: Interval history: This is a 70-year-old lady well-known to me from her recent office visit. The patient was recently hospitalized with shortness of breath and was found to have a large left-sided pleural effusion, pulmonary embolism, DVT. I had initially seen her on February 19. The patient underwent a left-sided thoracentesis the same day. Based on the initial read by the pathology team the patient does have evidence of malignancy on the pleural fluid however do not have a definitive site of the primary tumor yet. Following the initial thoracentesis the patient had rapid recognition of fluid and she underwent a repeat thoracentesis on February 26. The pleural fluid analysis from February 26 revealed 433,000 RBCs, this was not consistent with a diagnosis of hemothorax. However, the patient presented to the hospital yesterday with episodes of near syncope and shortness of breath and the large left-sided pleural effusion was again seen. Her hemoglobin had dropped to 6.4. She had received IV fluid and blood. Her blood pressure is stable now. I performed a bedside ultrasound. The patient has a large left-sided pleural effusion. Additionally, there is evidence of fibrinous strands now. Given the patient's dropping hemoglobin level and her being on anticoagulant I do believe that the patient has hemothorax although the pleural fluid analysis was not consistent with it. The patient is complaining of shortness of breath with minimal exertion today. She is in the process of getting an IVC filter placed. Medications: Reviewed: Yes Vitals/I&O/Wt Last Vital Signs Temp 97.5 F L 03/02/21 11:24 Pulse 93 03/02/21 11:24 Resp 22 H 03/02/21 11:24 BP 137/77 03/02/21 11:24 Pulse Ox 100 03/02/21 11:24 03/01/21 03/02/21 03/02/21 22:59 06:59 14:59 Intake Total 472 / 472 Output Total 150 / 150 Balance 322 / 322 Weight last 48 hrs Weight 150 lb Physical Exam Narrative: EXAM NARRATIVE: General: Patient is awake alert and oriented, in no distress while resting. Neck: No JVD Respiratory: Auscultation: Reduced breath sound in the left hemithorax, no wheezing or rhonchi Cardiovascular: Regular rate and rhythm, S1-S2 present, no murmur, no peripheral edema. Abdomen: Soft, nontender, nondistended, positive bowel sound Musculoskeletal: No obvious joint deformity Skin: No rash Neuro: Mental status is normal, no gross cranial nerve deficit, no gross motor deficit Data : 03/02/21 03:36 03/02/21 06:01 Micro: Microbiology 03/02/21 10:30 Occult Blood (FIT) - Final Stool Routine Collection Attestation for Other Data: I personally reviewed and interpreted the following: Other data: I have reviewed the patient's laboratory, microbiologic and neurologic data. CT scan of the head revealed a possible metastatic lesion in the left parietal occipital area. CT scan of the abdomen and pelvis did not reveal any evidence of metastatic disease. A&P Assessment and plan (1) Hemothorax: Clinically the patient has developed left-sided hemothorax. Her hemoglobin has dropped. Although her pleural fluid analysis on February 26 was not consistent with hemothorax. In the setting of full dose anticoagulation I believe she has developed hemothorax. It is unclear to me if this is secondary to the thoracentesis procedure or if the patient had spontaneous pneumothorax from pleural malignancy. Bedside ultrasound revealed positive plankton sign. I am going to put in a pigtail catheter entering the pleural space. I will perform stage drainage 1 L at a time so the pleural space can be completely cleaned out. I do not believe the patient is having active bleeding at this time. Her vitals are stable. She is receiving blood. The patient will receive a CT scan of the chest for better visualization of the left lung which we could not evaluate before because of the recurrent pleural effusion. 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 Once we have a definitive diagnosis of cancer, the patient may need a Pleurx catheter. However, if possible I will try to perform pleurodesis. Status: Acute (3) Brain metastasis: The patient likely has metastatic disease in the left parietal and occipital lobe. She is in the process of getting an MRI tomorrow. We will get the CT scan of the chest at the same time. Status: Acute (4) Pulmonary embolism: The anticoagulation is on hold now. The patient will need IVC filter placed. The patient has active malignancy and is at high risk for having recurrent PEs. Status: Acute (5) DVT (deep venous thrombosis): Status: Acute Attestations Medical Necessity Statement*: Will defer to the primary team Coding Level of Care Code Acute Lobby Attendant for Chg Fwd Diagnoses Hemothorax J94.2 Malignant pleural effusion J91.0 Brain metastasis C79.31 Pulmonary embolism I26.99 DVT (deep venous thrombosis) I82.409
--- NOTE | 2021-03-02 13:58 | PM.ACPR ---
Procedure/Consent Time out: Time Out Performed: Yes Consent: Consent for Procedure: Consent obtained from patient Procedure Narrative: Name of the procedure: Left-sided chest tube placement under ultrasound guidance. Medications: Lidocaine 1% 10 mL. Consent: Obtained from the patient Description of the procedure: An ultrasound was performed and a large left-sided pleural effusion was identified. Areas of fibrinous stranding was noted. A safe fluid pocket was identified with the ultrasound guidance and marked. The skin, subcutaneous tissue and the pleura was anesthetized with 1% lidocaine. Needle was advanced till flash back was noted. Dark bloody fluid was noted. Using Seldinger technique the right-sided chest tube was put in. The chest tube was secured with suture and transparent dressing. 1000 mL of dark bloody fluid was obtained. Complications: None. Acute Procedures Epistaxis Control: Time out performed: Yes
--- NOTE | 2021-03-02 15:50 | PC.NURSE ---
0900:bio-med in to check monitor. vitals not flowing over to tab. trend or nibp in room only shows on screen.
[2021-03-02 16:05] LABS: Hematocrit 30.1 % (37.0-47.0)
[2021-03-02 16:11] LABS: Coronavirus Test Green County Not Detected
--- NOTE | 2021-03-02 16:26 | XRR_ITS ---
PROCEDURE INFORMATION: Exam: XR Chest Exam date and time: 03/02/2021 4:26 PM Age: 70 years old Clinical indication: Device placement; Other: Chest tube placment; Additional info: Post chest tube placement TECHNIQUE: Imaging protocol: XR of the chest. Views: 1 view. COMPARISON: CR (CHEST, ) 03/02/2021 2:55 AM FINDINGS: Lungs: Interval placement of a drain in the lower left hemithorax. Improving aeration in the left midlung suggesting partial resolution of atelectasis. Persistent atelectasis in the left lingula and left lower lobe. Pleural spaces: Large left pleural effusion has decreased in size. No pneumothorax. Heart/Mediastinum: The cardiac silhouette is mildly enlarged. Mediastinal contours are unremarkable. Vasculature: Stable vascular calcifications in the aorta. Bones/joints: Unremarkable for age. XR/XR chest 1V portable [id number] IMPRESSION: 1. Interval placement of a drain in the lower left hemithorax. 2. Large left pleural effusion has decreased in size with improving aeration in the left midlung suggesting partial resolution of atelectasis. Persisting atelectasis in the left lingula and left lower lobe. Recommend followup chest x-ray to ensure resolution. 4. Incidental/nonacute findings are listed in the report. Radiation Dose CTDIVOL = (mGy): DLP = (mGy-cm)
[2021-03-02] MEDS: sodium chloride 0.9% 100 mL Bag 50 ML IV (16:36)
[2021-03-02] MEDS: pantoprazole 40 mg SDV IVP ×2 (17:07→19:56)
[2021-03-02] MEDS: dexamethasone 4 mg/mL INJ IVP ×2 (17:49→23:17)
[2021-03-02] MEDS: morphine 4 mg/mL SDV 1 mL 2 MG IVP ×2 (17:50→23:17)
--- NOTE | 2021-03-02 18:44 | PC.NURSE ---
what a horrible day for such a sweet lady. 2 units of prbcs infused today, w/o incident except. monitors not recording v/s, but most flowedd thru to computer. blood vitals not recorded but can be found. ct. trip found spot on her brain. bladder was holdin [id number] urine so after 3 attempts a 18fr. murray was inserted with immediate return, also very lg. amt fluid was seen in pleural cavity, dr. watkins placed chest tube, with immediate 1000cc return. chest tube was clamped. then in approx. 1 hr. unclamped and another 1000ccs drained, resulting in a violent coughing episode. a clot was also found in her heart. arrangements being made for transfer to [facility]
--- NOTE | 2021-03-02 18:57 | P.TS_ITS ---
Transfer Summary Providers Date of Admission: 03/02/21 07:26 Date of Discharge: 03/02/21 Attending Provider at Admission: Paige Lawler MD Attending Provider at Transfer: Pavel Diaz MD Primary Care Provider: CLOVIS Beltrán Anticipated Date of Transfer: Anticipated date of transfer: 03/02/21 Receiving Facility & Provider: Receiving Provider: [] Receiving facility: [] Diagnoses at Discharge Discharge Diagnosis (1) Elevated troponin: Status: Acute (2) Recurrent pleural effusion on left: Status: Acute (3) Severe anemia: Status: Acute (4) Pulmonary embolism: Status: Acute Qualifiers: Acute cor pulmonale presence: unspecified Chronicity: unspecified Pulmonary embolism type: other Qualified Code(s): I26.99 - Other pulmonary embolism without acute cor pulmonale (5) DVT (deep venous thrombosis): Status: Acute Qualifiers: Affected thrombotic vein of extremity: femoral Chronicity: unspecified DVT location: lower extremity Laterality: bilateral Qualified Code(s): I82.413 - Acute embolism and thrombosis of femoral vein, bilateral (6) Right ventricular mass: Status: Acute Reason for Visit Reason for Visit: SOB, Fluid on Lungs Hospital Course Hospital Course Rima is a 67 year old white female with underlying tobacco use and hypertension who presented to the hospital originally on February 07, with shortness of breath. She was diagnosed with an extensive DVT and pulminary emboli. She was di scharged on February 09 on Elquis. During the interim she received two thoracentesis for moderate pleural effusion diagnosed by CTA on February 07. It was suspected this was secondary malignancy as mediastinal adanopothy and a swpiculated left lung lesion or also noted. She represented on this admission [facility], with worsening shorten of breath with exersion,. She believed to be recurrent plural efusion. She was found to have a recurrent left plural effusion and was anemic with a hemoglobin with approximately 6.5. She also complained of black stools, but only one stool per day. Troponin was elevated with no significant trend. She also complained of nausea. Further workup for nausea included a CT head which showed a likely metastatic lesion to her left parietal occipital lobe with surrounding edema. There was no midline shift. MRI was planned for these lesions. Pulmonary was contacted regarding her recurrent left plural effusion and they placed a Pleurex catheter, which showed dark blood consistent with hemothorax. Stool was heme positive on testing. Cardiology performed an echocardiogram secondary to elevated troponin. This demonstrated two lesions, consistent with partially organized thrombus. Secondary to the patient's severe anemia, hemothorax, anti coagulation was held on admission. With the findings of right ventricular thrombus, cardiology believed the patient would be served with transfer to a hospital with more resources as interventional radiology could perform thrombectomy to lessen risk of this thrombus in transit. I spoke with Doctor Shannon from the [facility] regarding this case and she graciously accepted care of the patient. The patient clinically is stable currently and will need to go to a monitored unit there. Risks and benefits of transfer were discussed with the patient by cardiology. Physical Exam Narrative: EXAM NARRATIVE: See exam done earlier today. TS Data Data Completed and Pending: Completed Studies During Hospitalization Category Date Time Status CT abdomen pelvis w con* [id number] Rout ine Cat Scan 03/02/21 09:[address] head wo con* [id number] Routine Cat Scan 03/02/21 09:23 Completed XR chest 1V padmini ble [id number] Stat Exams 03/02/21 02:17 Completed XR chest 1V padmini ble [id number] Stat Exams 03/02/21 16:26 [place] [id number] Routin e Ultrasound 03/02/21 07:06 Completed CV. echo limited [id number] Routine Ultrasound 03/02/21 07:06 Completed Pending at discharge Category Date Time Status Complete Blood Co unt w/Auto AM LABS Lab 03/03/21 04:00 Ordered Comprehensive Met abolic Panel AM LA BS Lab 03/03/21 04:00 Ordered Prothrombin Time INR AM LABS Lab 03/03/21 04:00 Ordered MR head wo/w con [id number] Routine MRI 03/03/21 10:15 Ordered Labs from last 24 hours 03/02/21 03/02/21 03/02/21 15:30 11:18 11:18 WBC RBC Hgb 10.0 L D Hct 30.1 L D MCV MCH MCHC RDW Plt Count MPV Neut % (Auto) Lymph % (Auto) [place] % (Auto) Eos % (Auto) Baso % (Auto) Neut # (Auto) Lymph # (Auto) [place] # (Auto) Eos # (Auto) Baso # (Auto) Nucleated RBC % (a uto) Nucleated RBCs # PT 23.30 H INR 2.02 H APTT 34.2 Sodium Potassium Chloride Carbon Dioxide Anion Gap BUN Creatinine GFR Calculation Glucose Calculated Osmolal ity Calcium Total Bilirubin AST ALT Alkaline Phosphata se Troponin T Baselin e Troponin T 120 Min [place] Delta Troponin T Troponin T Hi Sens 6Hr 110.0 H Troponin T Hi Sens 6Hr Delta -22.0 L NT-Pro-B Natriuret Pep Total Protein Albumin Globulin Triglycerides Cholesterol LDL Cholesterol, C alc HDL Cholesterol LDL/HDL Ratio Cholesterol/HDL [place] Urine Color Urine Appearance Urine pH Ur Specific Gravit y Urine Protein Urine Glucose (UA) Urine Ketones Urine Blood Urine Nitrate Urine Bilirubin Urine Urobilinogen Ur Leukocyte [place] ase Urine RBC Urine WBC Ur Squamous Epith Cells Amorphous Sediment Urine Bacteria Nasal/Oral COVID-1 9 PCR SARS-CoV-2 Ag (Rap id) Blood Type Rho(D) Type Antibody Screen Crossmatch 03/02/21 03/02/21 03/02/21 07:45 06:01 06:01 WBC RBC Hgb Hct MCV MCH MCHC RDW Plt Count MPV Neut % (Auto) Lymph % (Auto) [place] % (Auto) Eos % (Auto) Baso % (Auto) Neut # (Auto) Lymph # (Auto) [place] # (Auto) Eos # (Auto) Baso # (Auto) Nucleated RBC % (a uto) Nucleated RBCs # PT INR APTT Sodium 129 L Potassium 4.1 Chloride 95 L Carbon Dioxide 19 L Anion Gap 19.1 H BUN 24 H Creatinine 1.3 H GFR Calculation 40.7 L Glucose 106 Calculated Osmolal ity 272 L Calcium 7.9 L Total Bilirubin 0.3 AST 19 ALT 9 Alkaline Phosphata se 59 Troponin T Baselin e Troponin T 120 Min [place] Delta Troponin T Troponin T Hi Sens 6Hr Troponin T Hi Sens 6Hr Delta NT-Pro-B Natriuret Pep Total Protein 5.5 L Albumin 2.8 L Globulin 2.7 Triglycerides 113 Cholesterol 164 LDL Cholesterol, C alc 108 HDL Cholesterol 33 L LDL/HDL Ratio 3.27 H Cholesterol/HDL [place] 4.97 H Urine Color Yellow Urine Appearance Sl hazy Urine pH 5 Ur Specific Gravit y 1.010 Urine Protein Neg Urine Glucose (UA) Norm Urine Ketones Negative Urine Blood 2+ H Urine Nitrate Negative Urine Bilirubin Neg Urine Urobilinogen Norm Ur Leukocyte [place] Negative Urine RBC 0-4 H Urine WBC Rare Ur Squamous Epith Cells 0-4 H Amorphous Sediment Not Reportable Urine Bacteria 1+ H Nasal/Oral COVID-1 9 PCR SARS-CoV-2 Ag (Rap id) Blood Type Rho(D) Type Antibody Screen Crossmatch 03/02/21 03/02/21 03/02/21 06:01 04:27 04:20 WBC RBC Hgb Hct MCV MCH MCHC RDW Plt Count MPV Neut % (Auto) Lymph % (Auto) [place] % (Auto) Eos % (Auto) Baso % (Auto) Neut # (Auto) Lymph # (Auto) [place] # (Auto) Eos # (Auto) Baso # (Auto) Nucleated RBC % (a uto) Nucleated RBCs # PT INR APTT Sodium Potassium Chloride Carbon Dioxide Anion Gap BUN Creatinine GFR Calculation Glucose Calculated Osmolal ity Calcium Total Bilirubin AST ALT Alkaline Phosphata se Troponin T Baselin e Troponin T 120 Min [place] 116.4 H Delta Troponin T -15.6 L Troponin T Hi Sens 6Hr Troponin T Hi Sens 6Hr Delta NT-Pro-B Natriuret Pep Total Protein Albumin Globulin Triglycerides Cholesterol LDL Cholesterol, C alc HDL Cholesterol LDL/HDL Ratio Cholesterol/HDL [place] Urine Color Urine Appearance Urine pH Ur Specific Gravit y Urine Protein Urine Glucose (UA) Urine Ketones Urine Blood Urine Nitrate Urine Bilirubin Urine Urobilinogen Ur Leukocyte [place] Urine RBC Urine WBC Ur Squamous Epith Cells Amorphous Sediment Urine Bacteria Nasal/Oral COVID-1 9 PCR SARS-CoV-2 Ag (Rap id) Negative Blood Type A Positive Rho(D) Type Positive Antibody Screen Negative Crossmatch See Detail 03/02/21 03/02/21 03/02/21 04:20 03:36 03:36 WBC RBC Hgb Hct MCV MCH MCHC RDW Plt Count MPV Neut % (Auto) Lymph % (Auto) [place] % (Auto) Eos % (Auto) Baso % (Auto) Neut # (Auto) Lymph # (Auto) [place] # (Auto) Eos # (Auto) Baso # (Auto) Nucleated RBC % (a uto) Nucleated RBCs # PT INR APTT Sodium 128 L Potassium 3.9 Chloride 93 L Carbon Dioxide 19 L Anion Gap 19.9 H BUN 24 H Creatinine 1.4 H GFR Calculation 37.4 L Glucose 122 H Calculated Osmolal ity 271 L Calcium 7.9 L Total Bilirubin AST ALT Alkaline Phosphata se Troponin T Baselin e 132 H* Troponin T 120 Min [place] Delta Troponin T Troponin T Hi Sens 6Hr Troponin T Hi Sens 6Hr [place] NT-Pro-B Natriuret Pep 339 H Total Protein Albumin Globulin Triglycerides Cholesterol LDL Cholesterol, C alc HDL Cholesterol LDL/HDL Ratio Cholesterol/HDL [place] Urine Color Urine Appearance Urine pH Ur Specific Gravit y Urine Protein Urine Glucose (UA) Urine Ketones Urine Blood Urine Nitrate Urine Bilirubin Urine Urobilinogen Ur Leukocyte [place] Urine RBC Urine WBC Ur Squamous Epith Cells Amorphous Sediment Urine Bacteria Nasal/Oral COVID-1 9 PCR Not detected SARS-CoV-2 Ag (Rap id) Blood Type Rho(D) Type Antibody Screen Crossmatch 03/02/21 03:36 WBC 10.1 H RBC 2.39 L Hgb 6.4 L* Hct 21.4 L MCV 89.5 MCH 26.8 L MCHC 29.9 L RDW 14.2 Plt Count 138 MPV 11.0 H Neut % (Auto) 73.2 Lymph % (Auto) 17.8 [place] % (Auto) 6.1 Eos % (Auto) 1.3 Baso % (Auto) 0.4 Neut # (Auto) 7.43 Lymph # (Auto) 1.8 [place] # (Auto) 0.6 Eos # (Auto) 0.1 Baso # (Auto) 0.0 Nucleated RBC % (a uto) 0 Nucleated RBCs # 0.0 PT INR APTT Sodium Potassium Chloride Carbon Dioxide Anion Gap BUN Creatinine GFR Calculation Glucose Calculated Osmolal ity Calcium Total Bilirubin AST ALT Alkaline Phosphata se Troponin T Baselin e Troponin T 120 Min [place] Delta Troponin T Troponin T Hi Sens 6Hr Troponin T Hi Sens 6Hr [place] NT-Pro-B Natriuret Pep Total Protein Albumin Globulin Triglycerides Cholesterol LDL Cholesterol, C alc HDL Cholesterol LDL/HDL Ratio Cholesterol/HDL [place] Urine Color Urine Appearance Urine pH Ur Specific Gravit y Urine Protein Urine Glucose (UA) Urine Ketones Urine Blood Urine Nitrate Urine Bilirubin Urine Urobilinogen Ur Leukocyte [place] Urine RBC Urine WBC Ur Squamous Epith Cells Amorphous [place] Urine Bacteria Nasal/Oral COVID-1 9 PCR SARS-CoV-2 Ag (Rap id) Blood Type Rho(D) Type Antibody Screen Crossmatch Vitals: Last Vital Signs Temp 97.3 F L 03/02/21 14:30 Pulse 91 03/02/21 15:45 Resp 24 H 03/02/21 17:50 BP 128/84 03/02/21 15:45 Pulse Ox 95 03/02/21 15:45 TS Medications Medications Home Medications cholecalciferol (vitamin D3) [Vitamin D3] 25 mcg PO DAILY 02/07/21 [History Confirmed 03/02/21] elderberry fruit 200 mg PO DAILY 02/07/21 [History Confirmed 03/02/21] multivitamin 1 tab PO DAILY 02/07/21 [History Confirmed 03/02/21] zinc 50 mg PO DAILY 02/07/21 [History Confirmed 03/02/21] apixaban [Eliquis DVT-PE Treat 30D Start] See Rx Instructions .ROUTE .COMPLEX #74 ea 02/09/21 [Rx Confirmed 03/02/21] furosemide 20 mg tablet 10 - 20 mg PO DAILY 30 Days #30 tab 02/15/21 [Rx Confirmed 03/02/21] Active Medications Acetaminophen (Acetaminophen 325 Mg Tablet) 650 mg PO Q6H PRN PRN Reason: Mild/Mod Pain Or Temp >/= 101 Atorvastatin Calcium (Atorvastatin 40 Mg Tablet) 40 mg PO BEDTIME QUAN Dexamethasone (Dexamethasone 4 Mg/Ml Inj) 4 mg IVP Q6H QUAN Last Admin: 03/02/21 17:49 Dose: 4 mg Documented by: Morphine Sulfate (Morphine 4 Mg/Ml Sdv 1 Ml) 2 mg IVP Q4H PRN PRN Reason: SEVERE PAIN Last Admin: 03/02/21 17:50 Dose: 2 mg Documented by: Naloxone HCl (Naloxone 0.4 Mg/Ml Sdv) 0.1 mg IVP Q2M PRN PRN Reason: OPIATERV Ondansetron HCl (Ondansetron 2 Mg/Ml Sdv 2 Ml) 4 mg IVP Q8H PRN PRN Reason: vomiting, or N/V if npo Pantoprazole Sodium (Pantoprazole 40 Mg Sdv) 40 mg IVP Q12H QUAN Last Admin: 03/02/21 17:07 Dose: 40 mg Documented by: Discharge Plan Discharge Patient Disposition: Xfer Short-Term Hosp Condition: Stable Prescriptions: No Action furosemide [Lasix] 20 mg tablet 10 - 20 mg PO DAILY 30 Days Qty: 30 RF: 0 multivitamin Tablet 1 tab PO DAILY RF: 0 zinc 50 mg Tablet 50 mg PO DAILY RF: 0 cholecalciferol (vitamin D3) [Vitamin D3] 25 mcg (1,000 unit) Capsule 25 mcg PO DAILY RF: 0 elderberry fruit 200 mg Capsule 200 mg PO DAILY RF: 0 Eliquis DVT-PE Treat 30D Start 5 mg (74 tabs) tablets,dose pack See Rx Instructions .ROUTE .COMPLEX Qty: 74 RF: 0 Discharge Orders: Transfer Out of Facility (Order); Ordered 03/02/21 Ordered By: Pavel Diaz Referrals: DB Tan, [facility]IAISON [Primary Care Provider] - Transfer Attestations Time Spent in Transfer Care*: greater than 30 min Quality Metrics Clinical Quality Measures: During this hospital stay, did patient experience: None Coding Level of Care Code Acute Founder President And Ceo for Chg Fwd Diagnoses Elevated troponin R77.8 Recurrent pleural effusion on left J90 Severe anemia D64.9 Pulmonary embolism I26.99 Acute cor pulmonale presence: unspecified Chronicity: unspecified Pulmonary embolism type: other DVT (deep venous thrombosis) I82.413 Affected thrombotic vein of extremity: femoral Chronicity: unspecified DVT location: lower extremity Laterality: bilateral Right ventricular mass I51.89
--- NOTE | 2021-03-02 19:32 | PC.NURSE ---
Pain Medication Patient reporting pain unrelieved by PRN Morphine, called Dr. Lawler and obtained over the phone orders for PRN Percoet 5-325mg Q4 for pain.
[2021-03-02] MEDS: oxyCODONE-APAP 5-325 mg Tablet 1 TAB PO (19:55)
[2021-03-02] MEDS: atorvastatin 40 mg Tablet PO (20:59)
--- NOTE | 2021-03-02 21:13 | PC.NURSE ---
Transport Spoke with Kalee at [facility], declined air transport due to weather conditions. Patient will be transferred by ground.
--- NOTE | 2021-03-02 21:49 | PC.NURSE ---
Called Report Called report on patient to Alyce Darling RN at [facility]. Patient will be admitted to room 236 bed 1.
--- NOTE | 2021-03-02 22:06 | PC.NURSE ---
Transport Spoke with Katia at [facility], she informed nurse ambulance will not be able to transfer patient until 0700 03/03/21 due to lack of available ambulances. This nurse called [facility] with update on patient transport.
[2021-03-03] VITALS (34 sets, daily range): BP systolic 105–128; BP diastolic 60–84; PULSE 63–89; RESP 0–25; TEMP 36.7; O2SAT 89–99
[2021-03-03] MEDS: oxyCODONE-APAP 5-325 mg Tablet 1 TAB PO ×2 (02:13→07:03)
[2021-03-03 04:29] LABS: Basophils % 0.2 %; Hematocrit 25.1 % (37.0-47.0); Hemoglobin 8.5 g/dL (11.5-15.3); Lymphocytes # 0.7 10^3/uL (0.8-4.8); Lymphocytes % 6.3 %; Mean Corpuscular HGB Conc 33.9 g/dL (30.0-36.0); Mean Corpuscular Hemoglobin 28.1 pg (28.0-34.0); Mean Corpuscular Volume 83.1 fl (81-99); Monocytes # 0.2 10^3/uL (0.2-0.9); Neutrophils # 10.49 10^3/uL (1.8-7.7); Neutrophils % 89.8 %; Nucleated Red Blood Cells % 0 %; Platelet Count 134 10^3/cmm (130-400); Red Blood Count 3.02 10^6/uL (4.1-5.3); Red Cell Distribution Width 13.8 % (12.1-15.1); White Blood Count 11.7 10^3/uL (4.0-10.0)
--- NOTE | 2021-03-03 04:53 | PC.NURSE ---
Shift Summary Patient had several reports of pain on the left side where chest tube insertion site is located. PRN Percocet and Morphine were administered to keep the patient resting comfortably. Courtney catheter drained 250 mls of dark yellow urine overnight. She remains on room air and is alert/oriented x4. No wounds or skin issues other than chest tube insertion site on left side. Chest tube drained 100 mls of sanguineous fluid overnight. At this time, still planning to transfer patient to [facility] by ambulance around 0700.
[2021-03-03 04:57] LABS: INR 1.48 (0.8-1.2)
[2021-03-03 05:05] LABS: Alanine Aminotransferase 10 U/L (0-33); Albumin Level 2.6 g/dL (3.5-5.2); Alkaline Phosphatase 59 IU/L (35-105); Anion Gap 18.2 (5-19); Aspartate Amino Transferase 21 U/L (0-32); Blood Urea Nitrogen 19 mg/dL (8-23); Carbon Dioxide 20 mmol/L (22-29); Chloride 97 mmol/L (98-107); Creatinine Clr Calc Pharmacy 62.3216; Globulin 2.6 g/dL (1.3-4.6); Glomerular Filtration Rate 71.3 mL/min (90-130); Glucose 141 mg/dL (65-115); Osmolality Calculated 277 mOsm/kg (285-295); Potassium 4.2 mmol/L (3.5-5.1); Sodium 131 mmol/L (136-145); Total Bilirubin 0.4 mg/dL (0.15-1.2); Total Protein 5.2 g/dL (6.6-8.7)
[2021-03-03 05:29] LABS: Calcium 7.9 mg/dL (8.5-10.5)
[2021-03-03] MEDS: pantoprazole 40 mg SDV IVP (07:03)
[2021-03-03] MEDS: morphine 4 mg/mL SDV 1 mL 2 MG IVP (07:04)
[2021-03-03] MEDS: dexamethasone 4 mg/mL INJ IVP (07:04)
--- NOTE | 2021-03-03 07:16 | P.PN_ITS ---
Subjective Subjective: Interval history: See transfer summary yesterday. This is an update. Patient still here secondary to some difficulties obtaining transport to . Could not fly secondary to wind. Ambulance has been delayed from multiple other transfers yesterday. She should be transferred shortly. Today she reports her breathing is under control with rest. She denies any headache. Reports no nausea currently. Less edema. Overall she feels better. Medications: Reviewed: Yes Vitals/I&O/Wt Last Vital Signs Temp 98.0 F 03/03/21 04:00 Pulse 68 03/03/21 06:15 Resp 20 H 03/03/21 07:03 BP 105/62 03/03/21 06:15 Pulse Ox 99 03/03/21 07:03 03/02/21 03/03/21 03/03/21 22:59 06:59 14:59 Intake Total 240 / 1192 480 / 1672 Output Total 2475 / 2925 350 / 3275 Balance -2235 / -1733 130 / -1603 Weight last 48 hrs Weight 68.039 kg Weight 68.039 kg Physical Exam Narrative: EXAM NARRATIVE: General exam no distress Neck is supple Cardiovascular regular rate and rhythm Lungs clear but with markedly diminished breath sounds left side Abdomen is soft, positive bowel sounds Extremities trace edema Data : 03/03/21 03:29 03/03/21 03:29 Micro: Microbiology 03/02/21 10:30 Occult Blood (FIT) - Final Stool Routine Collection A&P Assessment and plan (1) Severe anemia: Appears to be secondary to left hemothorax Hemoglobin stabilized currently Stool heme positive as well, placed on Protonix IV Status: Acute (2) DVT (deep venous thrombosis): Recent DVT and pulmonary embolism 3 weeks ago for which patient was on Eliquis. Now holding all anticoagulation. Secondary to this IVC filter is being considered. Secondary to finding on thrombus, this has been deferred and patient is being transferred to hospital with more resources including interventional radiology Status: Acute Qualifiers: Affected thrombotic vein of extremity: femoral Chronicity: unspecified DVT location: lower extremity Laterality: bilateral Qualified Code(s): I82.413 - Acute embolism and thrombosis of femoral vein, bilateral (3) Pulmonary embolism: Unable to anticoagulate. Considering IVC filter. See above Status: Acute Qualifiers: Acute cor pulmonale presence: unspecified Chronicity: unspecified Pulmonary embolism type: other Qualified Code(s): I26.99 - Other pulmonary embolism without acute cor pulmonale (4) Elevated troponin: Type II elevation. Echocardiogram demonstrated preserved EF, RV thrombus Status: Acute (5) Recurrent pleural effusion on left: Pleurx catheter placed pneumothorax noted. Patient appears stable from a respiratory standpoint currently. Status: Acute (6) Right ventricular mass: Unable to anticoagulate. Consideration for interventional radiology intervention. Patient has been transferred to for consideration of this and this should occur this morning. Status: Acute Additional A&P Information Nausea. CT of head obtained demonstrating a likely metastatic lesion left parietal. It has significant edema so dexamethasone was initiated. MRI should be obtained. CVA is in differential. Attestations Medical Necessity Statement*: Transfer imminent, see transfer summary. Coding Level of Care Code Acute Neurosurgery Spine Physician for Chg Fwd Diagnoses Severe anemia D64.9 DVT (deep venous thrombosis) I82.413 Affected thrombotic vein of extremity: femoral Chronicity: unspecified DVT location: lower extremity Laterality: bilateral Pulmonary embolism I26.99 Acute cor pulmonale presence: unspecified Chronicity: unspecified Pulmonary embolism type: other Elevated troponin R77.8 Recurrent pleural effusion on left J90 Right ventricular mass I51.89
--- NOTE | 2021-03-03 07:52 | PC.NURSE ---
transferred to [facility] via [facility] ambulance with [employer] phone and ortho tech.
--- NOTE | 2021-03-03 09:01 | PC.CHAP ---
Pastoral Care Encounter/Spiritual Assessment Type of Contact [] Declined riveter helper visit [] Patient/Family/Request visit [] Outpatient visit [] Follow-up visit [] Physician referral [] Code/Alert [x] Routine visit [] Staff referral [] Actively dying [] Patient sleeping [] Family support [] [] Out of room [] Palliative care [] [] Receiving care in room [] Pre-surgical visit [] Trauma [] Long length of stay [x] ICU visit [x] Other: moved to another hospital for care Relational/Emotional Strength [] Patient feels connected with others/family/visitors/staff [] Distress [] Loneliness/isolation [] Abandonment Spirituality of Patient [] Person of Danae [] Attends Caodaism of their Danae [] Believes in Prayer [] Reads Bible or Alevism materials [] There are Spiritual issues to be addressed [employer] Interventions [] Prayer [] Active listening [] Non-anxious presence [] Spiritual/emotional support [] Crisis/trauma care [] Spiritual counseling [] Bereavement support [] Provided bereavement packet [] Provided Bible/devotional materials [] Provided toy/stuffed animal, coloring book to patient or family member [] Provided Communion [] Anointing/[place] [] Salvation [x] Completed spiritual assessment [] Other: Impact on Illness or Injury [] Angry [] Fearful [] Anxious [] Often cries [] Exhaustion [] Unable to work [] Unable to attend christian [] Unable to walk/stand [] Unable to read [] Unable to drive [] Unable to eat/drink [] Unable to sleep [] Unable to be with family [] Patient intubated [] Other: Summary Time spent with patient
== END 2021-03-03 07:20 | disposition short-term general hospital (02) | DRG 186 ==
LOC: ER 04:20 → ICU 06:46
PROVIDERS: Admitting Provider Student in an Organized Health Care Education/Training Program; Emergency Provider Emergency Medicine; PCP Nurse Practitioner Family; Visit Provider Internal Medicine
DX: J94.2 Hemothorax (principal); I26.99 Other pulmonary embolism without acute cor pulmonale; I21.A1 Myocardial infarction type 2; C79.31 Secondary malignant neoplasm of brain; I82.413 Acute embolism and thrombosis of femoral vein, bilateral; I82.433 Acute embolism and thrombosis of popliteal vein, bilateral; J91.0 Malignant pleural effusion; C80.1 Malignant (primary) neoplasm, unspecified; R91.8 Other nonspecific abnormal finding of lung field; I50.9 Heart failure, unspecified; I11.0 Hypertensive heart disease with heart failure; Z87.440 Personal history of urinary (tract) infections; E55.9 Vitamin D deficiency, unspecified; Z87.891 Personal history of nicotine dependence; D64.9 Anemia, unspecified
CPT/HCPCS: 36415; 36430; 70450; 71045; 74177; 80048; 80053; 80061; 81001; 82274; 83880; 84484; 85014; 85018; 85025; 85610; 85730; 86850; 86900; 86920; 87426; 87635; 93005; 93308; 93970; 99285; C9113; G0378; J1100; J2270; P9016; Q9967

== ENCOUNTER 2021-03-15 14:21 | Outpatient (CLI) | payer MEDICARE, SELFPAY ==
[2021-03-15 16:49] LABS: Basophils # 0.1 10^3/uL (0.0-0.1); Basophils % 0.5 %; Eosinophils # 0.1 10^3/uL (0.0-0.8); Eosinophils % 1.2 %; Hematocrit 27.9 % (37.0-47.0); Hemoglobin 9.4 g/dL (11.5-15.3); Lymphocytes # 1.2 10^3/uL (0.8-4.8); Lymphocytes % 11.8 %; Mean Corpuscular HGB Conc 33.7 g/dL (30.0-36.0); Mean Corpuscular Hemoglobin 27.3 pg (28.0-34.0); Mean Corpuscular Volume 81.1 fl (81-99); Monocytes # 0.7 10^3/uL (0.2-0.9); Neutrophils # 8.15 10^3/uL (1.8-7.7); Neutrophils % 78.6 %; Nucleated Red Blood Cells % 0 %; Platelet Count 118 10^3/cmm (130-400); Red Blood Count 3.44 10^6/uL (4.1-5.3); Red Cell Distribution Width 14.9 % (12.1-15.1); White Blood Count 10.4 10^3/uL (4.0-10.0)
[2021-03-15 17:23] LABS: Slide Review Slide Review Perform
[2021-03-15 17:57] LABS: Alanine Aminotransferase 19 U/L (0-33); Albumin Level 3.3 g/dL (3.5-5.2); Alkaline Phosphatase 83 IU/L (35-105); Anion Gap 16.8 (5-19); Aspartate Amino Transferase 36 U/L (0-32); Blood Urea Nitrogen 11 mg/dL (8-23); Calcium 8.6 mg/dL (8.5-10.5); Carbon Dioxide 24 mmol/L (22-29); Chloride 98 mmol/L (98-107); Globulin 2.6 g/dL (1.3-4.6); Glomerular Filtration Rate 44.7 mL/min (90-130); Glucose 86 mg/dL (65-115); Iron 21 ug/dL (37-145); Osmolality Calculated 279 mOsm/kg (285-295); Percent Saturation 9.2 % (20-50); Potassium 3.8 mmol/L (3.5-5.1); Sodium 135 mmol/L (136-145); Thyroid Stimulating Hormone 1.35 uIU/mL (0.27-4.20); Total Bilirubin 0.6 mg/dL (0.15-1.2); Total Iron Binding Capacity 228 mcg/dl; Total Protein 5.9 g/dL (6.6-8.7); Unsaturated Iron Binding 207 ug/dL (112-347)
[2021-03-15 18:00] LABS: Vitamin B12 > 2000 pg/mL (232-1245)
--- NOTE | 2021-03-15 19:24 | ONC CON_ITS ---
Dr. Irving New Patient Note Patient: Rima Manuel Unit #: [id number]: 1950 Dicatated By: Aiden Irving M.D.Date of Visit: Mar 15, 2021 Onc MED New Patient/Consult Referring Physician: See Russo Chief Complaint: Lung cancer. 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 On 02/07/2021 she was admitted to the hospital after presenting to the emergency room with increasing shortness of breath and chest discomfort over a period of several weeks. Her CT pulmonary angiogram showed occlusive pulmonary emboli in the anterior and lateral segmental branches and the subsegmental branches of the right lower lobe pulmonary artery. Additional nonocclusive pulmonary emboli are noted in the right lower lobe pulmonary artery branches. Also noted was a spiculated nodule in the left upper lobe measuring 1.5 x 0.8 x 1.0 cm, multiple enlarged mediastinal and right axillary lymph nodes, and a large left pleural effusion. Venous Doppler study showed bilateral lower extremity deep vein thrombosis. She began on anticoagulation with apixaban. Following discharge she had outpatient thoracentesis on 02/19/2021 and on 02/26/2021. The pleural fluid cytology was positive for poorly differentiated non-small cell carcinoma, TTF-1 focally and weakly positive in rare cells. On 03/02/2021 she was readmitted to the hospital after presenting to the emergency room with weakness and shortness of breath. She was found to be severely anemic, hemoglobin 6.4 g. She had not been aware of any active bleeding, but she was found to have a positive stool Hemoccult. She was transfused PRBC. Her evaluation at the time also included a noncontrast head CT which showed no evidence of intracranial hemorrhage. However, there was a moderate amount of subcortical edema involving the left parasagittal parietal and occipital lobes which was felt to be suspicious for an underlying metastatic deposit. In addition, her echocardiogram showed 2 echodense lesions in the right ventricle measuring 2.4 x 1.4 cm and 1.3 x 1.0 cm. They were felt to possibly represent organized thrombus. Given those findings, she was transferred to the [facility] for further evaluation/management. Those records are not yet available, I am told that her CARD DEALER evaluation was consistent with stroke rather than CARD DEALER metastatic disease and that a right axillary lymph node biopsy was positive for adenocarcinoma. She is seen now for further management. In association with her stroke, she had developed numbness and weakness in the right arm and hand and she also had significant visual loss. She is uncertain exactly when that occurred. Thus far vision has not been getting any better, but her right arm weakness does seem to have improved. She has very limited activity. She is able to walk with assistance, but she is mostly sedentary. ECOG score is 3. Her appetite is poor, and she tends to gag whenever she tries to eat. She has lost weight. She does not have fever or night sweats. She has not had sore mouth or throat, and she does not have difficulty swallowing. She is short of breath with effort, but her breathing is okay at rest. She is not having cough and she does not complain of chest pain. She has nausea, which comes and goes, and she also complains that she has been burping a lot. Bowel function has been okay, and she has not been aware of any blood in the stool. She is on antibiotic therapy for urinary tract infection, but she currently is not having bladder symptoms. She has no significant joint or bone pain. She does not complain of headache or dizziness. She has been having some anxiety, but she does not have depression. Past Medical History: Her medical history includes a history of recurrent urinary tract infections and recent onset of hypertension. Past Surgical History: She underwent ultrasound-guided thoracentesis on 02/19/2021 and on 02/26/2021, and she subsequently underwent needle biopsy of the right axillary lymph node. Her only other surgery was a cholecystectomy. Medications: Apixaban 1 Tablet (of 5 mg) Oral daily, Atorvastatin Calcium 1 Tablet (of 80 mg) Oral daily, Furosemide 0.5 - 1 Tablet (of 20 mg) Oral daily, levoFLOXacin 1 Tablet (of 750 mg) Oral daily, Potassium Chloride Jeanne ER 1 Tablet (of 10 meq) Tablet, controlled release Oral daily Allergies: No Known Allergies. Social History: Ms. Manuel is . 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 She has a history of smoking 1 pack of cigarettes daily beginning at age 20. She quit smoking in January 2021. She does not drink alcohol. Family History: Father of heart attack at age 58. Mother is still living and in good general health at age 87. A brother of leukemia. He had previously been treated for throat cancer. A sister at age 60 with suspected heart attack. Review Of Symptoms: Constitutional - She has very limited activity. She is able to walk with assistance. Appetite is very poor. She gags when she tries to eat. She has lost weight. She does not have fever or night sweats. ECOG score is 3, Eyes - She has had visual loss associated with her stroke, ENMT - No hearing loss or tinnitus. No sinus congestion/drainage. No mouth sores. No sore throat or difficulty swallowing, Hematologic/Lymphatic - She has easy bruising. She has not been aware of any bleeding, Respiratory - Her breathing is okay at rest. She is short of breath with effort. No cough. No pleuritic pain or hemoptysis, Cardiovascular - No angina pain. No palpitations, Gastrointestinal - She has nausea, which comes and goes. No heartburn or acid reflux, but she has a lot of burping. No diarrhea or constipation. No blood in the stool or black stools, Genitourinary (F) - She is on antibiotic for urinary tract infection. She currently is not having any bladder symptoms, Musculoskeletal - No joint or bone pain, Integumentary - No skin rash or other skin changes, Neurologic - No headache or dizziness. She has numbness and weakness in her right hand, Psychiatric - No anxiety or depression. She sometimes has difficulty sleeping. Vital Signs: Performed on Mar 15, 2021 15:45: 5, 0, 23.72, 1.67 sq.m, 64 in, 99 %, 101 /min (HIGH), 18 /min, 107/71 mm(hg), 98.0 F (LOW), and 138.2 lbs (HIGH). Physical Examination: Constitutional - She appears generally weak, Eyes - Sclerae nonicteric. Conjunctivae clear, ENMT - No lesions noted in the oral cavity, Neck - No mass or thyromegaly, Hematologic/Lymphatic - No cervical, clavicular, or axillary adenopathy noted, Respiratory - Lungs show diminished air movement on the left, Cardiovascular - Heart rhythm is regular. There is no murmur, gallop, or rub noted. There is no carotid bruit noted, Abdomen - Soft and non-tender. Liver and spleen are not enlarged. There is no abdominal mass or ascites noted and there is no inguinal adenopathy, Back/Spine - No spine or CVA tenderness noted, Extremities - Mild lower extremity edema bilaterally. Both feet are cool to touch. She has a palpable dorsalis pedis pulse on the right. I am not able to palpate any pulse in the left foot, Integumentary - No rashes. No suspicious skin lesions noted, Neurologic - By exam she appears to have a right homonymous hemianopsia. There is diminished sensation in the right hand. She has just mild weakness in the right arm. Problem List: 1. Adenocarcinoma involving the upper lobe of the left lung, stage IVB (T1b, N3, M1c) with malignant pleural effusion and right axillary lymph node involvement. 2. 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 3. She developed severe anemia on anticoagulation with apixaban. This was presumed to be due to blood loss, though a definite source was not determined. 4. History of recurrent urinary tract infection. Problems Addressed with this Encounter and Plan: Patient with adenocarcinoma involving the upper lobe of the left lung, stage IVB (T1b, N3, M1c) with malignant pleural effusion and right axillary lymph node involvement. The clinical findings and pathology results were reviewed with the patient and her daughters, and we discussed the clinical implications. She has non-small cell cancer of the left lung. Based on the malignant pleural effusion and right axillary lymph node involvement, her disease is stage IV and therefore not curable. Is also not going to be amenable to either surgery or radiation. We discussed options for systemic therapy which may include chemotherapy and/or immunotherapy as well as the possibility of targeted therapy. Specific recommendations will depend on results of next generation sequencing, which will be requested on the right axillary lymph node biopsy, assuming the biopsy sample is sufficient for analysis. We also discussed the fact that she does have poor performance status, which does tend to portend poor outcomes with chemotherapy, and which may limit her treatment options. At least for now specific treatment recommendations will be deferred pending results of the next generation sequencing study. In the meantime, I am requesting records from the [facility]. I will recheck laboratory studies today. I will have her start prednisone 10 mg twice daily for appetite stimulation. She will be given a Prevnar 13 vaccination. She declines a flu shot. 2. 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 Due to the high risk associated with further thromboembolism, she will continue anticoagulation with apixaban 5 mg twice daily despite the fact that she also has had significant risk for bleeding. 3. She developed severe anemia on anticoagulation with apixaban. This was presumed to be due to acute blood loss, though a definite source was not determined. She will require regular monitoring of her blood counts, and she will be transfused PRBC again as needed. Signed By: Aiden rIving M.D. <<Signature on File>>
== END 2021-03-15 14:22 | disposition home or self-care (01) ==
LOC: ONCMED 14:33
PROVIDERS: PCP Nurse Practitioner Family; Visit Provider Internal Medicine Medical Oncology
DX: C34.12 Malignant neoplasm of upper lobe, left bronchus or lung (principal); J91.0 Malignant pleural effusion; C77.3 Secondary and unspecified malignant neoplasm of axilla and upper limb lymph nodes; D68.59 Other primary thrombophilia; I82.403 Acute embolism and thrombosis of unspecified deep veins of lower extremity, bilateral; I26.99 Other pulmonary embolism without acute cor pulmonale; I63.9 Cerebral infarction, unspecified; D50.0 Iron deficiency anemia secondary to blood loss (chronic); Z79.01 Long term (current) use of anticoagulants; Z87.440 Personal history of urinary (tract) infections; Z79.899 Other long term (current) drug therapy
CPT/HCPCS: 36415; 80053; 82607; 83540; 83550; 84443; 85025; 86850; 86900; 90471; 90670; 99205

== ENCOUNTER 2021-03-26 11:57 | Emergency (ER) | payer MEDICARE, SELFPAY ==
[2021-03-26 12:06] VITALS: PULSE 102; RESP 18; TEMP 37.1; O2SAT 95; BMI 24.7
--- NOTE | 2021-03-26 12:16 | XR_ITS ---
WS: [id number] Exam: XR chest 1V portable [id number] Date/Time of Exam: 03/26/2021 12:16 PM Reason For Exam: sob Comparison 03/02/2021. Prominent left pleural effusion is noted. No infiltrates or pneumothorax identified. The heart is pro bably enlarged. The mediastinum is not widened. The bony thorax is intact. XR/XR chest 1V portable [id number] IMPRESSION: 1. Large left-sided pleural effusion which involves the lower 50% of the left p leural cavity. There is likely compressive atelectasis of the left lower lobe a nd possibly the lingula. 2. Probable cardiac enlargement however the left heart border is obscured. The right lung remains clear and fully expanded.
[2021-03-26 13:39] LABS: Basophils % 0.3 %; Eosinophils % 0.3 %; Hematocrit 29.9 % (37.0-47.0); Hemoglobin 9.2 g/dL (11.5-15.3); Lymphocytes # 1.1 10^3/uL (0.8-4.8); Lymphocytes % 8.9 %; Mean Corpuscular HGB Conc 30.8 g/dL (30.0-36.0); Mean Corpuscular Hemoglobin 26.2 pg (28.0-34.0); Mean Corpuscular Volume 85.2 fl (81-99); Mean Platelet Volume 11.4 fL (7.4-10.4); Monocytes # 0.5 10^3/uL (0.2-0.9); Monocytes % 4.3 %; Neutrophils # 10.01 10^3/uL (1.8-7.7); Neutrophils % 84.4 %; Nucleated Red Blood Cells % 0 %; Platelet Count 96 10^3/cmm (130-400); Red Blood Count 3.51 10^6/uL (4.1-5.3); Red Cell Distribution Width 16.6 % (12.1-15.1); White Blood Count 11.9 10^3/uL (4.0-10.0)
[2021-03-26 14:13] LABS: Alanine Aminotransferase 18 U/L (0-33); Albumin Level 3.4 g/dL (3.5-5.2); Alkaline Phosphatase 78 IU/L (35-105); Aspartate Amino Transferase 33 U/L (0-32); Blood Urea Nitrogen 14 mg/dL (8-23); Calcium 8.1 mg/dL (8.5-10.5); Carbon Dioxide 22 mmol/L (22-29); Chloride 99 mmol/L (98-107); Globulin 2.7 g/dL (1.3-4.6); Glomerular Filtration Rate 71.3 mL/min (90-130); Glucose 100 mg/dL (65-115); NT Pro B Type Natriuretic Pept 556 pg/mL (0-125); Osmolality Calculated 285 mOsm/kg (285-295); Sodium 137 mmol/L (136-145); Total Bilirubin 0.8 mg/dL (0.15-1.2); Total Protein 6.1 g/dL (6.6-8.7)
--- NOTE | 2021-03-26 14:45 | ED_ITS ---
HPI - SOB/Dyspnea General: Chief Complaint: Shortness of Breath/Dyspnea Stated Complaint: SOB Time Seen by Provider: 03/26/21 14:45 History of Present Illness: HPI Narrative: Ms Manuel is a 70 year old lady with history of lung cancer and malignant pleural effusion who presents to the ED due to shortness of breath. Symptoms started to worsen gradually over the past week and is not moderate in intensity and severe with exertion. Mild increased cough but no other infectious or associated symptoms. She reports this feels similar to prior episodes when she required thoracentesis. She is on eliquis. No other significant changes in health, exacerbating or alleviated factors noted. Review of Systems General: Reports: 10 or more systems reviewed and unremarkable except in HPI and below PFSH ED PFSH: Medical History Bilateral lower extremity edema Chest pressure Dyspnea Encounter for medication management Essential hypertension Frequent UTI Murmur UTI symptoms Vitamin D deficiency Social History Quit status (tobacco): has quit using tobacco Year quit tobacco: 2020 Former quit date comment: 1ppd x 50 years Female Reproductive History: Date of last menstrual period: 03/02/21 Physical Exam Narrative: EXAM NARRATIVE: GENERAL/CONSTITUTIONAL - somewhat ill-appearing. Eyes - PERRL, no conjunctival injection ENMT - Atraumatic external nose and ears. Moist mucous membranes NECK - supple. trachea midline CARDIOVASCULAR - regular rate and rhythm. RESPIRATORY - absent lung sounds left mid and base. some increased work of breathing ABDOMEN/GI - Nontender/Nondistended. No tenderness to percussion or evidence of peritonitis MSK - Extremities without obvious deformity or tenderness to palpation SKIN - Warm, Dry NEURO - alert and appropriately oriented. Moves all extremities equally. Course ED course: - Patient was seen and evaluated by me at bedside - Patient placed on cardiac monitors, IV access obtained - Initial evaluation notable for lung sounds as noted above concerning for effusion recurrance - Labs notable for similar to recent baseline labs - Imaging notable for large left pleural effusions - discussed with pulmonology general production manager given eliquis and current clinical status patient would benifit from their service performing procedure. Patient to be taken from ED to GI lab for thoracentesis - Upon serial reexamination after treatment the patient was similar - Based on patient history, evaluation, labs, and imaging as interpreted the most likely cause of the patient's condition is malignant pleural effusion recurrance - The results of ED evaluation were discussed with the patient including plan to go directly to procedure, followup plan, and return precautions. The patient verbalized understanding and felt safe for discharge. - Patient discharged in satisfactory condition. Vital Signs: Vital signs: Vital Signs Temperature 98.7 F 03/26/21 12:06 Pulse Rate 102 H 03/26/21 12:06 Respiratory Rate 18 03/26/21 12:06 Pulse Oximetry 95 03/26/21 12:06 MDM - SOB/Dyspnea Medical Records: Attestation: I reviewed the patient's medical records. Lab Data: Attestation: I reviewed the patient's lab results. Labs: Lab Results 03/26/21 03/26/21 13:30 13:30 WBC 11.9 10^3/uL H 10 ^3/uL (4.0-10.0) RBC 3.51 10^6/uL L 10 ^6/uL (4.1-5.3) Hgb 9.2 g/dL L g/dL (11.5-15.3) Hct 29.9 % L % (37.0-47.0) MCV 85.2 fl fl (81-99) MCH 26.2 pg L pg (28.0-34.0) MCHC 30.8 g/dL g/dL (30.0-36.0) RDW 16.6 % H % (12.1-15.1) Plt Count 96 10^3/cmm L 10^ 3/cmm (130-400) MPV 11.4 fL H fL (7.4-10.4) Neut % (Auto) 84.4 % % Lymph % (Auto) 8.9 % % Nash % (Auto) 4.3 % % Eos % (Auto) 0.3 % % Baso % (Auto) 0.3 % % Neut # (Auto) 10.01 10^3/uL H 1 0^3/uL (1.8-7.7) Lymph # (Auto) 1.1 10^3/uL 10^3/ uL (0.8-4.8) Nash # (Auto) 0.5 10^3/uL 10^3/ uL (0.2-0.9) Eos # (Auto) 0.0 10^3/uL 10^3/ uL (0.0-0.8) Baso # (Auto) 0.0 10^3/uL 10^3/ uL (0.0-0.1) Nucleated RBC % (a uto) 0 % % Nucleated RBCs # 0.0 /100WBC /100W BC Sodium 137 mmol/L mmol/L (136-145) Potassium 4.0 mmol/L mmol/L (3.5-5.1) Chloride 99 mmol/L mmol/L (98-107) Carbon Dioxide 22 mmol/L mmol/L (22-29) Anion Gap 20.0 H (5-19) BUN 14 mg/dL mg/dL (8-23) Creatinine 0.8 mg/dL mg/dL (0.5-0.9) GFR Calculation 71.3 mL/min L mL/ min (90-130) Glucose 100 mg/dL mg/dL (65-115) Calculated Osmolal ity 285 mOsm/kg mOsm/ kg (285-295) Calcium 8.1 mg/dL L mg/dL (8.5-10.5) Total Bilirubin 0.8 mg/dL mg/dL (0.15-1.2) AST 33 U/L H U/L (0-32) ALT 18 U/L U/L (0-33) Alkaline Phosphata se 78 IU/L IU/L (35-105) NT-Pro-B Natriuret Pep 556 pg/mL H pg/mL (0-125) Total Protein 6.1 g/dL L g/dL (6.6-8.7) Albumin 3.4 g/dL L g/dL (3.5-5.2) Globulin 2.7 g/dL g/dL (1.3-4.6) Discharge Plan Discharge Patient Disposition: Home Clinical Impression: Shortness of breath, Pleural effusion Condition: Stable Prescriptions: No Action atorvastatin [Lipitor] 80 mg tablet 80 mg PO DAILY RF: 0 potassium chloride [Klor-Con M10] 10 mEq tablet,ER particles/crystals 10 meq PO DAILY 30 Days Qty: 30 RF: 0 furosemide [Lasix] 20 mg tablet 10 - 20 mg PO DAILY 30 Days Qty: 30 RF: 0 apixaban 5 mg tablet 5 mg PO BID Qty: 60 RF: 0 multivitamin Tablet 1 tab PO DAILY RF: 0 prednisone 10 mg tablet 10 mg PO DAILY RF: 0 clonazepam 0.5 mg tablet 0.5 mg PO DAILY PRN (Reason: Anxiety) RF: 0 fluoxetine [Prozac] 10 mg capsule 10 mg PO DAILY MDD see pharmacy comment PRN (Reason: Anxiety) RF: 0 Discharge Orders: Discharge ED (Routine); Ordered 03/26/21 Ordered By: Alton Hudson Referrals: DB Tan, FAMILY CONSUMER SCIENCE TEACHER [Primary Care Provider] - Discharge Diet: Usual diet Discharge Activity: Resume usual activity Patient Instructions: Shortness of Breath (ED), Pleural Effusion Activity Restrictions/Additional Instructions: Thank you for visiting the emergency department. You were seen and evaluated for shortness of breath. You were found to have recurrence of your pleural effusion and will be discharged to the GI lab for evaluation by Dr. Solis. Please follow-up with your primary care provider, oncologist, and pulmonary team. Please return to the emergency department for recurrent symptoms, worsening symptoms, lightheadedness, dizziness, coughing up or vomiting blood, or anything else that you are concerned about and feel needs emergency department evaluation. Coding Level of Care Code ED Print Production Manager for Nikko Perez
== END 2021-03-26 15:53 | disposition home or self-care (01) ==
PROVIDERS: Emergency Provider Emergency Medicine; PCP Nurse Practitioner Family
DX: R06.02 Shortness of breath (principal); J90 Pleural effusion, not elsewhere classified; I10 Essential (primary) hypertension; Z87.891 Personal history of nicotine dependence; C80.1 Malignant (primary) neoplasm, unspecified; J91.0 Malignant pleural effusion
CPT/HCPCS: 32554; 32555; 71045; 80053; 83880; 85025; 99282

== ENCOUNTER → 2021-03-26 16:02 | Day surgery (SDC) | payer MEDICARE, SELFPAY ==
[2021-03-26 16:27] VITALS: BP 126/87; PULSE 104; RESP 18; TEMP 35.9; O2SAT 98; BMI 24.7
--- NOTE | 2021-03-26 16:48 | XRR_ITS ---
PROCEDURE INFORMATION: Exam: XR Chest Exam date and time: 03/26/2021 4:48 PM Age: 70 years old Clinical indication: Device placement; Other: Post thoracentesis; Additional info: Post thora TECHNIQUE: Imaging protocol: XR of the chest. Views: 1 view. COMPARISON: CR XR chest 1V portable [id number] 03/26/2021 12:20 PM FINDINGS: Lungs: The left upper lung and right lung are well expanded. Left basilar atelectasis. Pleural spaces: Small residual left pleural effusion, improved. No visible pneumothorax. Heart/Mediastinum: Unremarkable. No cardiomegaly. Bones/joints: Unremarkable. XR/XR chest 1V portable [id number] IMPRESSION: Small residual left pleural effusion. No visible pneumothorax.
--- NOTE | 2021-03-26 18:48 | P.PCN_ITS ---
Procedure/Consent Time out: Time Out Performed: Yes Consent: Consent for Procedure: Consent obtained from patient Procedure Narrative: Indication: Suspicion for malignant pleural effusion Anesthetics: Local anesthesia with 1% lidocaine. IV pain medication: None. Description of the procedure: The procedure was explained to the patient in detail including the risks and a consent was obtained. The left hemithorax was scanned with ultrasound to find a safe fluid pocket. Large amount of free- flowing fluid was seen. There was a positive plankton sign. Following identification of the fluid pocket the site was marked. The site was cleaned using sterile technique. Lidocaine 1% was injected into the skin and the subcutaneous tissue. Subsequently, the periosteum in the parietal pleural was also anesthetized using lidocaine. The pleural space was entered in the posterior axillary line in the left seventh intercostal space. Bloody fluid was aspirated. About 900 cc of fluid was aspirated. Complications: None Chest x-ray: Improved left-sided pleural effusion. Acute Procedures Epistaxis Control: Time out performed: Yes
== END ==
PROVIDERS: PCP Nurse Practitioner Family; Visit Provider Internal Medicine Pulmonary Disease
DX: C80.1 Malignant (primary) neoplasm, unspecified (principal); J91.0 Malignant pleural effusion
CPT/HCPCS: 32554; 32555; 71045

== ENCOUNTER 2021-03-29 18:37 | Emergency (ER) | payer MEDICARE, SELFPAY ==
[2021-03-29 18:42] VITALS: BP 111/60; PULSE 90; RESP 14; TEMP 37.2; O2SAT 99; BMI 24.7
--- NOTE | 2021-03-29 18:49 | ECG_ITS ---
[facility] Test Date: 2021-03-29 Pat Name: Rima Manuel Department: Room: Gender: Female Chancellor: : 1950 Requested By: Donovan Quezada Order Number: [id number] Lora MD: Anna Mcgovern M.D. Measurements Intervals [place] Rate: 85 P: 55 IA: 133 QRS: 40 QRSD: 95 T: 42 QT: 367 QTc: 438 Interpretive Statements SINUS RHYTHM Compared to ECG 03/02/2021 04:13:03 No significant changes Electronically Signed On 03-29-2021 20:48:33 CHILDREN'S COUNSELOR by Anna Mcgovern M.D. [id number]
--- NOTE | 2021-03-29 18:49 | XRR_ITS ---
PROCEDURE INFORMATION: Exam: XR Chest Exam date and time: 03/29/2021 6:49 PM Age: 70 years old Clinical indication: Shortness of breath; Additional info: SOB, HX of lung cancer TECHNIQUE: Imaging protocol: XR of the chest. Views: 1 view. COMPARISON: CR XR chest 1V portable [id number] 03/26/2021 5:07 PM FINDINGS: There is infiltrate within the left lung base with left pleural effusion. This is not significantly changed. The right lung remains clear. There is no pneumothorax. The heart size is normal. XR/XR chest 1V portable [id number] IMPRESSION: Stable appearance of the chest.
--- NOTE | 2021-03-29 18:51 | PC.NURSE ---
REPORT GIVEN TO JORDAN JIMÉNEZ [facility].
--- NOTE | 2021-03-29 19:00 | ED_ITS ---
HPI - SOB/Dyspnea General: Chief Complaint: Shortness of Breath/Dyspnea Stated Complaint: SOB/ LUNG CA Time Seen by Provider: 03/29/21 18:38 Source: patient and EMS Mode of arrival: EMS Limitations: no limitations History of Present Illness: HPI Narrative: 62-year-old female has a history of lung cancer that had multiple malignant pleural effusions and has had to have them drained four separate times with the last one being drained the 10th. She states she feels like it is reformed she is having shortness of breath again she states that she just feels like she is unable to get a breath then patient is hypoxic as well denies any chest pain denies any fever denies any increased cough. Associated symptoms: Deny abdominal pain, chest pain, fever(s), nausea or vomiting Review of Systems Const: Denies: fever(s), chills, body aches or change in appetite Eyes: Denies: blurry vision or eye discomfort ENMT: Denies: throat pain or dental pain Card: Denies: chest pain Resp: Reports: dyspnea GI: Denies: abdominal pain, nausea, vomiting or diarrhea : Denies: dysuria Musc: Denies: neck pain or back pain Skin/Breast: Denies: rash Neuro: Denies: headache(s) Psych: Denies: depression Ernie/Lymph: Denies: easy bruising All/Imm: Denies: urticaria PFSH ED PFSH: Medical History Bilateral lower extremity edema Chest pressure Dyspnea Encounter for medication management Essential hypertension Frequent UTI Murmur UTI symptoms Vitamin D deficiency Social History Quit status (tobacco): has quit using tobacco Year quit tobacco: 2020 Former quit date comment: 1ppd x 50 years Female Reproductive History: Date of last menstrual period: 03/02/21 Physical Exam Const: COMMON NORMALS: no acute distress, patient oriented x3 and healthy appearing HENMT: COMMON NORMALS: normocephalic and atraumatic HEAD & SCALP: normocephalic and atraumatic Eye: COMMON NORMALS: Equal, round and reactive pupils present and EOMs intact bilaterally PUPIL: Yes Equal, round and reactive pupils present Neck/C-Spine: COMMON NORMALS: full ROM and supple Chest: COMMONS NORMALS: normal inspection of the chest and normal palpation of entire chest wall Resp: COMMON NORMALS: No retractions and No use of accessory muscles EFFORT & INSPECTION: Yes tachypneic OTHER: decreased breath sounds to left Cardio: COMMON NORMALS: regular rate, regular rhythm and No murmurs present (Cardio) RATE: regular rate RHYTHM: regular rhythm GI: COMMON NORMALS: Normal to inspection, nondistended, normoactive bowel sounds present, Soft to palpation, non-tender and no masses PALPATION: Yes Soft to palpation Extremity: COMMON NORMALS: normal to inspection and full ROM Neuro: COMMON NORMALS: patient oriented x3, moves all extremities and no focal motor deficits Psych: COMMON NORMALS: mental status grossly normal, Normal thought process present and cooperative THOUGHT PROCESS: Normal thought process present Skin: COMMON NORMALS: no rashes or lesions noted and no wounds GENERAL SKIN EXAM: no rashes or lesions noted Course Vital Signs: Vital signs: Vital Signs Temperature 98.5 F 03/29/21 22:59 Pulse Rate 93 03/29/21 22:59 Respiratory Rate 14 03/29/21 22:59 Blood Pressure 112/59 03/29/21 22:59 Pulse Oximetry 94 03/29/21 22:59 MDM - SOB/Dyspnea MDM Narrative: Medical decision making narrative: Patient presents here with dyspnea along with some anemia new has been chronic in nature blood pressures been stable we will give her transfusion of 1 unit of blood x-ray shows no worsening of her effusion patient here is breathing much improved her pulse ox is 94% on room air I spoke to her corporate strategy associate Dr. Solis will get her follow-up with him along with Dr. Howell and patient stable for discharge and return if worsening. Lab Data: Labs: Lab Results 03/29/21 03/29/21 03/29/21 19:20 19:20 19:20 WBC 12.6 10^3/uL H 10 ^3/uL (4.0-10.0) RBC 2.79 10^6/uL L 10 ^6/uL (4.1-5.3) Hgb 7.3 g/dL L g/dL (11.5-15.3) Hct 22.9 % L % (37.0-47.0) MCV 82.1 fl fl (81-99) MCH 26.2 pg L pg (28.0-34.0) MCHC 31.9 g/dL g/dL (30.0-36.0) RDW 16.6 % H % (12.1-15.1) Plt Count 62 10^3/cmm L 10^ 3/cmm (130-400) MPV 12.2 fL H fL (7.4-10.4) Neut % (Auto) 80.8 % % Lymph % (Auto) 11.9 % % [place] % (Auto) 5.2 % % Eos % (Auto) 0.2 % % Baso % (Auto) 0.2 % % Neut # (Auto) 10.19 10^3/uL H 1 0^3/uL (1.8-7.7) Lymph # (Auto) 1.5 10^3/uL 10^3/ uL (0.8-4.8) [place] # (Auto) 0.7 10^3/uL 10^3/ uL (0.2-0.9) Eos # (Auto) 0.0 10^3/uL 10^3/ uL (0.0-0.8) Baso # (Auto) 0.0 10^3/uL 10^3/ uL (0.0-0.1) Nucleated RBC % (a uto) 0.2 % % Nucleated RBCs # 0.0 /100WBC /100W BC PT 20.90 SECONDS H S ECONDS (12.1-14.9) INR 1.75 H (0.8-1.2) Sodium 133 mmol/L L mmol /L (136-145) Potassium 4.3 mmol/L mmol/L (3.5-5.1) Chloride 99 mmol/L mmol/L (98-107) Carbon Dioxide 24 mmol/L mmol/L (22-29) Anion Gap 14.3 (5-19) BUN 19 mg/dL mg/dL (8-23) Creatinine 0.9 mg/dL mg/dL (0.5-0.9) GFR Calculation 62.3 mL/min L mL/ min (90-130) Glucose 119 mg/dL H mg/dL (65-115) Calculated Osmolal ity 279 mOsm/kg L mOs m/kg (285-295) Lactic Acid Calcium 7.9 mg/dL L mg/dL (8.5-10.5) Total Bilirubin 0.5 mg/dL mg/dL (0.15-1.2) AST 31 U/L U/L (0-32) ALT 17 U/L U/L (0-33) Alkaline Phosphata se 74 IU/L IU/L (35-105) Total Protein 5.6 g/dL L g/dL (6.6-8.7) Albumin 2.9 g/dL L g/dL (3.5-5.2) Globulin 2.7 g/dL g/dL (1.3-4.6) Urine Color Urine Appearance Urine pH Ur Specific Gravit y Urine Protein Urine Glucose (UA) Urine Ketones Urine Blood Urine Nitrate Urine Bilirubin Urine Urobilinogen Ur Leukocyte Kanchan ase Blood Type Rho(D) Type Antibody Screen Crossmatch 03/29/21 03/29/21 03/29/21 20:12 20:12 20:25 WBC RBC Hgb Hct MCV MCH MCHC RDW Plt Count MPV Neut % (Auto) Lymph % (Auto) [place] % (Auto) Eos % (Auto) Baso % (Auto) Neut # (Auto) Lymph # (Auto) [place] # (Auto) Eos # (Auto) Baso # (Auto) Nucleated RBC % (a uto) Nucleated RBCs # PT INR Sodium Potassium Chloride Carbon Dioxide Anion Gap BUN Creatinine GFR Calculation Glucose Calculated Osmolal ity Lactic Acid 1.5 mmol/L mmol/L (0.5-2.2) Calcium Total Bilirubin AST ALT Alkaline Phosphata se Total Protein Albumin Globulin Urine Color Yellow (Yellow) Urine Appearance Clear (CLEAR) Urine pH 6 (5-7) Ur Specific Gravit y 1.010 (1.005-1.030) Urine Protein Neg (Negative) Urine Glucose (UA) Norm (Normal) Urine Ketones Negative (Negative) Urine Blood Neg (Negative) Urine Nitrate Negative (Negative) Urine Bilirubin Neg (Negative) Urine Urobilinogen Neg mg/dL mg/dL (Negative) Ur Leukocyte Kanchan ase Negative (Negative) Blood Type A Positive Rho(D) Type Positive Antibody Screen Negative Crossmatch See Detail Discharge Plan Discharge Patient Disposition: Home Clinical Impression: Dyspnea Anemia Qualifiers: Anemia type: unspecified type Qualified Code(s): D64.9 - Anemia, unspecified Condition: Stable Prescriptions: No Action atorvastatin [Lipitor] 80 mg tablet 80 mg PO DAILY RF: 0 potassium chloride [Klor-Con M10] 10 mEq tablet,ER particles/crystals 10 meq PO DAILY 30 Days Qty: 30 RF: 0 furosemide [Lasix] 20 mg tablet 10 - 20 mg PO DAILY 30 Days Qty: 30 RF: 0 apixaban 5 mg tablet 5 mg PO BID Qty: 60 RF: 0 multivitamin Tablet 1 tab PO DAILY RF: 0 prednisone 10 mg tablet 10 mg PO DAILY RF: 0 clonazepam 0.5 mg tablet 0.5 mg PO DAILY PRN (Reason: Anxiety) RF: 0 fluoxetine [Prozac] 10 mg capsule 10 mg PO DAILY MDD see pharmacy comment PRN (Reason: Anxiety) RF: 0 Discharge Orders: Discharge ED (Routine); Ordered 03/29/21 Ordered By: Donovan Quezada Referrals: DB Tan FNP [Primary Care Provider] - Amita Solis MD [Physician] - 1-3 days Discharge Diet: Advance as tolerated Discharge Activity: Resume usual activity Patient Instructions: Anemia (ED) Coding Level of Care Code ED Clinical Orthoptist for Nikko Fwd Exam Comprehensive
[2021-03-29 19:30] LABS: Basophils % 0.2 %; Eosinophils % 0.2 %; Hematocrit 22.9 % (37.0-47.0); Hemoglobin 7.3 g/dL (11.5-15.3); Lymphocytes # 1.5 10^3/uL (0.8-4.8); Lymphocytes % 11.9 %; Mean Corpuscular HGB Conc 31.9 g/dL (30.0-36.0); Mean Corpuscular Hemoglobin 26.2 pg (28.0-34.0); Mean Corpuscular Volume 82.1 fl (81-99); Mean Platelet Volume 12.2 fL (7.4-10.4); Monocytes # 0.7 10^3/uL (0.2-0.9); Monocytes % 5.2 %; Neutrophils # 10.19 10^3/uL (1.8-7.7); Neutrophils % 80.8 %; Nucleated Red Blood Cells % 0.2 %; Platelet Count 62 10^3/cmm (130-400); Red Blood Count 2.79 10^6/uL (4.1-5.3); Red Cell Distribution Width 16.6 % (12.1-15.1); White Blood Count 12.6 10^3/uL (4.0-10.0)
[2021-03-29 19:46] LABS: INR 1.75 (0.8-1.2)
[2021-03-29 19:48] LABS: Alanine Aminotransferase 17 U/L (0-33); Albumin Level 2.9 g/dL (3.5-5.2); Alkaline Phosphatase 74 IU/L (35-105); Anion Gap 14.3 (5-19); Aspartate Amino Transferase 31 U/L (0-32); Blood Urea Nitrogen 19 mg/dL (8-23); Calcium 7.9 mg/dL (8.5-10.5); Carbon Dioxide 24 mmol/L (22-29); Chloride 99 mmol/L (98-107); Globulin 2.7 g/dL (1.3-4.6); Glomerular Filtration Rate 62.3 mL/min (90-130); Glucose 119 mg/dL (65-115); Osmolality Calculated 279 mOsm/kg (285-295); Potassium 4.3 mmol/L (3.5-5.1); Sodium 133 mmol/L (136-145); Total Bilirubin 0.5 mg/dL (0.15-1.2); Total Protein 5.6 g/dL (6.6-8.7)
[2021-03-29 20:25] LABS: Add Urine Microscopic? NO; Charge for UA Resulting for Rev
[2021-03-29 20:32] LABS: Bilirubin Urine Neg (Negative); Blood Urine Neg (Negative); Glucose Urine UA Norm (Normal); Ketones Urine Negative (Negative); Leukocyte Esterase Urine Negative (Negative); Nitrate Urine Negative (Negative); Protein Urine Neg (Negative); Urine Appearance Clear (CLEAR); Urine Color Yellow (Yellow); Urobilinogen Urine Neg (Negative); pH Urine 6 (5-7)
[2021-03-29 21:12] LABS: Lactic Sepsis W/Reflex 1.5 mmol/L (0.5-2.2)
[2021-03-29 21:47] VITALS: BP 93/56; PULSE 94; RESP 18; O2SAT 93
[2021-03-29 22:00] VITALS: BP 93/56; PULSE 92; RESP 16; TEMP 36.8; O2SAT 93
[2021-03-29 22:16] VITALS: PULSE 94; RESP 17; TEMP 36.8; O2SAT 93
[2021-03-29 22:31] VITALS: BP 98/60; PULSE 92; RESP 15; TEMP 36.8; O2SAT 94
[2021-03-29 22:59] VITALS: BP 112/59; PULSE 93; RESP 14; TEMP 36.9; O2SAT 94
[2021-03-30 00:45] VITALS: BP 105/59; PULSE 68; RESP 16; TEMP 37; O2SAT 93
== END 2021-03-30 00:49 | disposition home or self-care (01) ==
PROVIDERS: Emergency Provider Emergency Medicine; PCP Nurse Practitioner Family
DX: R06.00 Dyspnea, unspecified (principal); D64.9 Anemia, unspecified; I10 Essential (primary) hypertension; Z87.891 Personal history of nicotine dependence
CPT/HCPCS: 36430; 71045; 80053; 81003; 83605; 85025; 85610; 86850; 86900; 86920; 87040; 93005; 99284; P9016

== ENCOUNTER 2021-04-02 08:07 | Outpatient (CLI) | payer MEDICARE, SELFPAY ==
[2021-04-02 08:47] LABS: Basophils # 0.1 10^3/uL (0.0-0.1); Basophils % 0.4 %; Eosinophils # 0.2 10^3/uL (0.0-0.8); Eosinophils % 1.8 %; Hematocrit 30.3 % (37.0-47.0); Hemoglobin 9.5 g/dL (11.5-15.3); Lymphocytes # 1.2 10^3/uL (0.8-4.8); Lymphocytes % 10.2 %; Mean Corpuscular HGB Conc 31.4 g/dL (30.0-36.0); Mean Corpuscular Hemoglobin 26.5 pg (28.0-34.0); Mean Corpuscular Volume 84.4 fl (81-99); Monocytes # 0.7 10^3/uL (0.2-0.9); Monocytes % 6.1 %; Neutrophils # 9.62 10^3/uL (1.8-7.7); Neutrophils % 80.1 %; Nucleated Red Blood Cells % 0 %; Red Blood Count 3.59 10^6/uL (4.1-5.3)
[2021-04-02 09:12] LABS: Alanine Aminotransferase 20 U/L (0-33); Albumin Level 2.9 g/dL (3.5-5.2); Alkaline Phosphatase 80 IU/L (35-105); Anion Gap 16.1 (5-19); Aspartate Amino Transferase 36 U/L (0-32); Blood Urea Nitrogen 17 mg/dL (8-23); Calcium 7.9 mg/dL (8.5-10.5); Carbon Dioxide 22 mmol/L (22-29); Chloride 101 mmol/L (98-107); Globulin 2.8 g/dL (1.3-4.6); Glomerular Filtration Rate 71.3 mL/min (90-130); Glucose 99 mg/dL (65-115); Iron 21 ug/dL (37-145); Osmolality Calculated 282 mOsm/kg (285-295); Percent Saturation 11.1 % (20-50); Potassium 4.1 mmol/L (3.5-5.1); Sodium 135 mmol/L (136-145); Total Bilirubin 0.9 mg/dL (0.15-1.2); Total Iron Binding Capacity 188 mcg/dl; Total Protein 5.7 g/dL (6.6-8.7); Unsaturated Iron Binding 167 ug/dL (112-347)
[2021-04-02 09:33] LABS: Slide Review Slide Review Perform
[2021-04-02 09:34] LABS: Platelet Count 25 10^3/cmm (130-400)
--- NOTE | 2021-04-03 17:52 | ONC FU_ITS ---
Dr. Irving Patient Follow-Up Note Patient: Rima Manuel Unit #: [id number]: 1950 Dicatated By: Aiden Irving M.D.Date of Visit:Apr 02, 2021 Onc Med Follow-up/Prog Note Chief Complaint: Lung cancer. 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 On 02/07/2021 she was admitted to the hospital after presenting to the emergency room with increasing shortness of breath and chest discomfort over a period of several weeks. Her CT pulmonary angiogram showed occlusive pulmonary emboli in the anterior and lateral segmental branches and the subsegmental branches of the right lower lobe pulmonary artery. Additional nonocclusive pulmonary emboli are noted in the right lower lobe pulmonary artery branches. Also noted was a spiculated nodule in the left upper lobe measuring 1.5 x 0.8 x 1.0 cm, multiple enlarged mediastinal and right axillary lymph nodes, and a large left pleural effusion. Venous Doppler study showed bilateral lower extremity deep vein thrombosis. She began on anticoagulation with apixaban. Following discharge she had outpatient thoracentesis on 02/19/2021 and on 02/26/2021. The pleural fluid cytology was positive for poorly differentiated non-small cell carcinoma, TTF-1 focally and weakly positive in rare cells. On 03/02/2021 she was readmitted to the hospital after presenting to the emergency room with weakness and shortness of breath. She was found to be severely anemic, hemoglobin 6.4 g. She had not been aware of any active bleeding, but she was found to have a positive stool Hemoccult. She was transfused PRBC. Her evaluation at the time also included a noncontrast head CT which showed no evidence of intracranial hemorrhage. However, there was a moderate amount of subcortical edema involving the left parasagittal parietal and occipital lobes which was felt to be suspicious for an underlying metastatic deposit. In addition, her echocardiogram showed 2 echodense lesions in the right ventricle measuring 2.4 x 1.4 cm and 1.3 x 1.0 cm. They were felt to possibly represent organized thrombus. Given those findings, she was transferred to the [facility] for further evaluation/management. Those records are not yet available, I am told that her [employer]PA[employer]ER [employer] evaluation was consistent with stroke rather than REPA[employer]ER [employer]S metastatic disease and that a right axillary lymph node biopsy was positive for adenocarcinoma. I had seen her initially on 03/15/2021. With advanced non-small cell lung cancer in the setting of poor performance status, I had deferred specific recommendations for treatment pending outcome of next generation sequencing, which was ordered on the axillary lymph node biopsy. In the meantime, on 03/29/2021 she presented to the emergency room with increased weakness and shortness of breath. Her hemoglobin had dropped to 7.3 g. Her platelet count at that time was moderately decreased at 62,000. She was transfused 1 unit PRBC. She is seen for a follow-up visit. She continues to have very limited activity. She is able to do some self-care. She is mostly sedentary. ECOG score is 3. Appetite is poor. She is trying to drink some Ensure. She has not had fever or night sweats. She has not had sore mouth or throat. She is out of breath with any effort. She sometimes has cough. She does not complain of chest pain. She has nausea, and she gags when she tries to eat. She is having significant constipation with her iron supplement. Bladder function has been okay. She has no significant joint or bone pain. She does not complain of headache or dizziness. She still has some weakness in the right hand, but it is getting better. Medications: Apixaban 1 Tablet (of 5 mg) Oral daily, Atorvastatin Calcium 1 Tablet (of 80 mg) Oral daily, Furosemide 0.5 - 1 Tablet (of 20 mg) Oral daily, levoFLOXacin 1 Tablet (of 750 mg) Oral daily, Potassium Chloride Jeanne ER 1 Tablet (of 10 meq) Tablet, controlled release Oral daily Allergies: No Known Allergies. Vital Signs: Performed on Apr 02, 2021 08:42 Height - 64.00 in Weight - 137.2 lbs (LOW) BSA - 1.67 sq.m BMI - 23.55 Temperature - 97.4 F (LOW) Pulse - 102 /min (HIGH) Respiration - 18 /min BP - 117/71 mm(hg) O2 Sat - 96 % Pain - 0 Fatigue - 0 Physical Examination: Constitutional - She appears generally weak, Eyes - Sclerae nonicteric. Conjunctivae clear, ENMT - No lesions noted in the oral cavity, Hematologic/Lymphatic - No cervical, clavicular, or axillary adenopathy noted, Respiratory - Lungs show diminished air movement bilaterally, especially at the left base, Cardiovascular - Heart rhythm is regular. There is no murmur, gallop, or rub noted, Abdomen - Soft. Liver and spleen are not enlarged. There is no abdominal mass or ascites noted and there is no inguinal adenopathy, Extremities - Mild lower extremity edema, Neurologic - There is mild residual weakness in the right hand. Lab/Imaging: Test performed on Apr 02, 2021 08:26 Iron 21 mcg/dL Sodium 135 mmol/L Iron Binding Capacity (TIBC) 188 mcg/dl Potassium 4.1 mmol/L % Iron Saturation 11.1 % Chloride 101 mmol/L CO2 22 mmol/L UIBC 167 mcg/dL Anion Gap 16.1 BUN 17 mg/dL Creatinine 0.8 mg/dL Cr Clearance (Est) 66.1200 mL/min eGFR 71.3 mL/min Glucose 99 mg/dL Osmolality - Calculated 282 mOsm/kg Calcium 7.9 mg/dL Protein, Total 5.7 g/dL Albumin 2.9 g/dL Globulin 2.8 g/dL Bilirubin, Total 0.9 mg/dL ALT (SGPT) 20 U/L AST (SGOT) 36 U/L Alkaline Phosphatase 80 IU/L WBC 12.0 10 3/uL RBC 3.59 10 6/uL HGB 9.5 g/dL HCT 30.3 % MCV 84.4 fl MCH 26.5 pg MCHC 31.4 g/dL RDW 17.0 % Platelet Count 25 10 3/cmm Neutrophils 9.62 10 3/uL Lymphocytes 1.2 10 3/uL Monocytes 0.7 10 3/uL Eosinophils 0.2 10 3/uL Basophils 0.1 10 3/uL Neutrophil % 80.1 % Lymphocyte % 10.2 % Monocyte % 6.1 % Eosinophil % 1.8 % Basophils % 0.4 % NRBC % 0 % CBC Slide Review Slide Review Perform SLIDE REVIEW AGREES WITH AUTOMATED RESULTS Problem List: 1. Adenocarcinoma involving the upper lobe of the left lung, stage IVB (T1b, N3, M1c) with malignant pleural effusion and right axillary lymph node involvement. 2. 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 3. She developed severe anemia on anticoagulation with apixaban. This was presumed to be due to blood loss, though a definite source was not determined. 4. History of recurrent urinary tract infection. Problems Addressed with this Encounter and Plan: 1. Patient with adenocarcinoma involving the upper lobe of the left lung, stage IVB (T1b, N3, M1c) with malignant pleural effusion and right axillary lymph node involvement. Specific treatment recommendations have been deferred pending results of a next generation sequencing study. However, with her poor performance status and associated thrombophilia, the overall prognosis appears poor. 2. She developed severe anemia on anticoagulation with apixaban. This was presumed to be due to acute blood loss, though a definite source was not determined. She recently required transfusion again, with her hemoglobin back down to 7.4 g. Her laboratory studies are indicative of iron deficiency. As she is not tolerating the oral iron, she will be given parenteral iron replacement with Injectafer, subject to verification of insurance coverage. 3. She also now has worsening thrombocytopenia. A specific cause has not been determined. The likely possibilities would include metastatic involvement in the bone marrow, autoimmune thrombocytopenia, or DIC. 4. 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 Due to the high risk associated with further thromboembolism, she had continued anticoagulation with apixaban 5 mg twice daily despite the fact that she also was at significant risk for bleeding. With her platelet count now decreasing, the apixaban dosage will be reduced to 5 mg twice daily. Signed By: Aiden Irving M.D. <<Signature on File>>
== END 2021-04-02 08:08 | disposition home or self-care (01) ==
LOC: ONCMED 08:11
PROVIDERS: PCP Nurse Practitioner Family; Visit Provider Internal Medicine Medical Oncology
DX: C34.90 Malignant neoplasm of unspecified part of unspecified bronchus or lung (principal); J90 Pleural effusion, not elsewhere classified; D68.59 Other primary thrombophilia; D69.6 Thrombocytopenia, unspecified; I82.403 Acute embolism and thrombosis of unspecified deep veins of lower extremity, bilateral; I26.99 Other pulmonary embolism without acute cor pulmonale; Z79.899 Other long term (current) drug therapy
CPT/HCPCS: 36415; 80053; 83540; 83550; 85025; 99214

== ENCOUNTER 2021-04-05 10:00 | Outpatient (CLI) | payer MEDICARE, SELFPAY ==
[2021-04-05 10:33] LABS: Basophils % 0.4 %; Eosinophils # 0.3 10^3/uL (0.0-0.8); Eosinophils % 3.1 %; Hematocrit 30.7 % (37.0-47.0); Hemoglobin 9.8 g/dL (11.5-15.3); Lymphocytes # 1.6 10^3/uL (0.8-4.8); Lymphocytes % 16.5 %; Mean Corpuscular HGB Conc 31.9 g/dL (30.0-36.0); Mean Corpuscular Hemoglobin 26.3 pg (28.0-34.0); Mean Corpuscular Volume 82.3 fl (81-99); Monocytes # 0.6 10^3/uL (0.2-0.9); Monocytes % 6.4 %; Neutrophils # 7.09 10^3/uL (1.8-7.7); Neutrophils % 72.7 %; Nucleated Red Blood Cells % 0 %; Red Blood Count 3.73 10^6/uL (4.1-5.3); White Blood Count 9.8 10^3/uL (4.0-10.0)
[2021-04-05 10:48] LABS: Platelet Count 26 10^3/cmm (130-400)
[2021-04-05 10:49] LABS: Slide Review Slide Review Perform
[2021-04-05 10:50] LABS: Alanine Aminotransferase 24 U/L (0-33); Albumin Level 2.8 g/dL (3.5-5.2); Alkaline Phosphatase 83 IU/L (35-105); Anion Gap 18.1 (5-19); Aspartate Amino Transferase 41 U/L (0-32); Blood Urea Nitrogen 17 mg/dL (8-23); Calcium 7.9 mg/dL (8.5-10.5); Carbon Dioxide 20 mmol/L (22-29); Chloride 101 mmol/L (98-107); Glomerular Filtration Rate 55.1 mL/min (90-130); Glucose 98 mg/dL (65-115); Osmolality Calculated 282 mOsm/kg (285-295); Potassium 4.1 mmol/L (3.5-5.1); Sodium 135 mmol/L (136-145); Total Bilirubin 0.9 mg/dL (0.15-1.2); Total Protein 5.8 g/dL (6.6-8.7)
[2021-04-05 10:51] LABS: Haptoglobin < 10.0 mg/L (30-200)
[2021-04-05 11:14] LABS: Lactate Dehydrogenase 1283 U/L (135-214)
[2021-04-05 11:25] LABS: LAB Peripheral Smear Sent for Review
--- NOTE | 2021-04-05 20:00 | ONC FU_ITS ---
Dr. Irving Patient Follow-Up Note Patient: Rima Manuel Unit #: [id number]: 1950 Dicatated By: Aiedn Irving M.D.Date of Visit:Apr 05, 2021 Onc Med Follow-up/Prog Note Chief Complaint: Lung cancer. 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 On 02/07/2021 she was admitted to the hospital after presenting to the emergency room with increasing shortness of breath and chest discomfort over a period of several weeks. Her CT pulmonary angiogram showed occlusive pulmonary emboli in the anterior and lateral segmental branches and the subsegmental branches of the right lower lobe pulmonary artery. Additional nonocclusive pulmonary emboli are noted in the right lower lobe pulmonary artery branches. Also noted was a spiculated nodule in the left upper lobe measuring 1.5 x 0.8 x 1.0 cm, multiple enlarged mediastinal and right axillary lymph nodes, and a large left pleural effusion. Venous Doppler study showed bilateral lower extremity deep vein thrombosis. She began on anticoagulation with apixaban. Following discharge she had outpatient thoracentesis on 02/19/2021 and on 02/26/2021. The pleural fluid cytology was positive for poorly differentiated non-small cell carcinoma, TTF-1 focally and weakly positive in rare cells. On 03/02/2021 she was readmitted to the hospital after presenting to the emergency room with weakness and shortness of breath. She was found to be severely anemic, hemoglobin 6.4 g. She had not been aware of any active bleeding, but she was found to have a positive stool Hemoccult. She was transfused PRBC. Her evaluation at the time also included a noncontrast head CT which showed no evidence of intracranial hemorrhage. However, there was a moderate amount of subcortical edema involving the left parasagittal parietal and occipital lobes which was felt to be suspicious for an underlying metastatic deposit. In addition, her echocardiogram showed 2 echodense lesions in the right ventricle measuring 2.4 x 1.4 cm and 1.3 x 1.0 cm. They were felt to possibly represent organized thrombus. Given those findings, she was transferred to the [facility] for further evaluation/management. Those records are not yet available, I am told that her ACCOUNTING SYSTEMS ANALYST evaluation was consistent with stroke rather than [employer]OUNT[employer] SYSTEMS ANALYST metastatic disease and that a right axillary lymph node biopsy was positive for adenocarcinoma. I had seen her initially on 03/15/2021. With advanced non-small cell lung cancer in the setting of poor performance status, I had deferred specific recommendations for treatment pending outcome of next generation sequencing, which was ordered on the axillary lymph node biopsy. In the meantime, on 03/29/2021 she presented to the emergency room with increased weakness and shortness of breath. Her hemoglobin had dropped to 7.3 g. Her platelet count at that time was moderately decreased at 62,000. She was transfused 1 unit PRBC. She was seen for follow-up on 04/02/2021. At that point she continued to have very limited activity, but her hemoglobin was adequate at 9.5 g. There was further decline in her platelet count to 25,000. Her apixaban dosage was reduced to 2.5 mg twice daily. She is seen again for a follow-up visit. She continues to have almost no activity. Over the weekend she has developed significant pain in her mid to upper back and she also has been having nausea and dry heaves. Her oral intake is poor. She has not had any bleeding manifestations. Medications: Apixaban 1 Tablet (of 5 mg) Oral daily, Atorvastatin Calcium 1 Tablet (of 80 mg) Oral daily, clonazePAM (1 mg) Tablet Oral ac am PRN, FLUoxetine HCl (20 mg) Capsule Oral daily, Furosemide 0.5 - 1 Tablet (of 20 mg) Oral daily, levoFLOXacin 1 Tablet (of 750 mg) Oral daily, Potassium Chloride Jeanne ER 1 Tablet (of 10 meq) Tablet, controlled release Oral daily Allergies: No Known Allergies. Vital Signs: Performed on Apr 05, 2021 10:31 Height - 64.00 in Weight - 137 lbs (LOW) BSA - 1.67 sq.m BMI - 23.52 Temperature - 98.0 F (LOW) Pulse - 110 /min (HIGH) Respiration - 16 /min BP - 97/63 mm(hg) O2 Sat - 96 % Pain - 3 Fatigue - 1 Lab/Imaging: Her CBC shows hemoglobin stable at 9.8 g with white blood cell count 9800 and platelet count 26,000. Comprehensive metabolic profile shows stable renal function with BUN 17 and creatinine 1.0 mg/dL. SGOT is slightly elevated at 41 U/L. Albumin is low 2.8 g/dL. LDH is significantly elevated 1283/214 U/L. Problem List: 1. Adenocarcinoma involving the upper lobe of the left lung, stage IVB (T1b, N3, M1c) with malignant pleural effusion and right axillary lymph node involvement. 2. 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 3. She developed severe anemia on anticoagulation with apixaban. This was presumed to be due to blood loss, though a definite source was not determined. 4. History of recurrent urinary tract infection. Problems Addressed with this Encounter and Plan: 1. Patient with adenocarcinoma involving the upper lobe of the left lung, stage IVB (T1b, N3, M1c) with malignant pleural effusion and right axillary lymph node involvement. 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 She has poor performance status. The results of her next generation sequencing have now become available. The sample unfortunately was insufficient for a complete analysis. However, the tumor was negative for PD-L1 expression and it was MSI stable. There were no actionable mutations identified, but the tumor did show high mutational burden at 19 mut/Mb. We discussed the fact that with stage IVB non-small cell lung cancer and with poor performance status, the possibility of benefit with standard chemotherapy will be low. She does not appear to be eligible for any targeted therapies. Based on the high mutational burden, she would have the option to have a trial of immunotherapy with pembrolizumab, though realistically the likelihood of benefit is still going to be low. At least for now we will focus on symptomatic management. I am going to have her start higher dose steroid therapy with dexamethasone 4 mg twice daily. She will be given Zofran ODT to take as needed for nausea and immediate release oxycodone to take as needed for pain. If she is not showing significant improvement, it may be best to just transition to palliative care on hospice. 2. She developed severe anemia on anticoagulation with apixaban. This was presumed to be due to acute blood loss, though a definite source was not determined. She recently required transfusion again, with her hemoglobin back down to 7.4 g. Her laboratory studies are indicative of iron deficiency. As she is not tolerating the oral iron, she will be given parenteral iron replacement with Injectafer, subject to verification of insurance coverage. 3. She has developed moderately severe thrombocytopenia, but her platelet count now appears to be stabilizing at 25,000. A specific cause has not been determined. Most likely possibilities would be bone marrow involvement with the lung cancer or tumor related DIC. Thus far she has not had any bleeding complications. However, as a precaution, her apixaban dosage has been decreased to 2.5 mg twice daily. Signed By: Aiden Irving M.D. <<Signature on File>>
== END 2021-04-05 10:01 | disposition home or self-care (01) ==
PROVIDERS: PCP Nurse Practitioner Family; Visit Provider Internal Medicine Medical Oncology
DX: C34.12 Malignant neoplasm of upper lobe, left bronchus or lung (principal); J91.0 Malignant pleural effusion; D68.59 Other primary thrombophilia; I82.403 Acute embolism and thrombosis of unspecified deep veins of lower extremity, bilateral; I26.99 Other pulmonary embolism without acute cor pulmonale; D69.6 Thrombocytopenia, unspecified; D50.9 Iron deficiency anemia, unspecified; Z79.899 Other long term (current) drug therapy
CPT/HCPCS: 36415; 80053; 83010; 83615; 85025; 99214

== ENCOUNTER 2021-04-08 09:06 | Emergency (ER) | payer MEDICARE, SELFPAY ==
[2021-04-08 09:35] VITALS: BP 157/75; PULSE 98; RESP 20; TEMP 36.9; O2SAT 91; BMI 23.9
--- NOTE | 2021-04-08 09:35 | ECG_ITS ---
[facility] Test Date: 2021-04-08 Pat Name: Rima Manuel Department: Room: Gender: Female Gas Station Service Attendant: : 1950 Requested By: Gamal Mejia Order Number: [id number] Lora MD: David Rousseau M.D. Measurements Intervals [place] Rate: 88 P: 33 IN: 120 QRS: 55 QRSD: 105 T: 54 QT: 364 QTc: 441 Interpretive Statements SINUS RHYTHM LOW QRS VOLTAGE IN PRECORDIAL LEADS [QRS DEFLECTION < 1.0 mV IN CHEST LEADS] Compared to ECG 03/29/2021 19:40:20 Low QRS voltage now present Electronically Signed On 04-08-2021 20:39:18 ARTIST AND REPERTOIRE MANAGER by David Rousseau M.D. [id number]
--- NOTE | 2021-04-08 09:36 | XRR_ITS ---
PROCEDURE INFORMATION: Exam: XR Chest Exam date and time: 04/08/2021 9:36 AM Age: 70 years old Clinical indication: Cough and dyspnea; Additional info: Dyspnea/cough TECHNIQUE: Imaging protocol: XR of the chest. Views: 1 view. COMPARISON: CR XR chest 1V portable [id number] 03/29/2021 6:59 PM FINDINGS: Lungs: There is increasing opacification of the left hemithorax due to enlarging left pleural effusion and worsening left lung atelectasis and consolidation. The right lung is clear. Pleural spaces: No pneumothorax. Heart/Mediastinum: Unremarkable. No cardiomegaly. Bones/joints: Unremarkable. XR/XR chest 1V portable [id number] IMPRESSION: Worsening opacification of the left hemithorax due to an enlarged left pleural effusion and worsening left lung atelectasis/consolidation.
[2021-04-08 10:00] LABS: ABG PCO2 33.3 mmHg (35-45); ABG PH Result 7.48 (7.35-7.45); Alveolar-Arterial Oxygen Gradi 6.6 mmHg (5-10); Base Excess ABG 1.2 mmol/L (-2.0-2.0); Blood Gas Sample Site Brachial, right; Blood Gas Sample Type Arterial; Carboxyhemoglobin 1.6 %THgb (0.4-20.1); HCO3 ABG 24.6 mmol/L (22-26); HGB O2 Sat 88.7 % (95-100); Ionized Calcium Level - ABG 1.2 mmol/L (1.1-1.4); Methemoglobin 1.1 % (0.4-1.5); Oxygen Saturation ABG 91.3; PO2 ABG 57.6 mmHg (80.0-100.0); Potassium Level - ABG 4.3 mmol/L (3.5-5.0); Total Hemoglobin 8.8 g/dL (12-16)
[2021-04-08 10:32] VITALS: BP 132/52; PULSE 89; RESP 17; O2SAT 98
[2021-04-08 10:40] LABS: Basophils % 0.1 %; Eosinophils # 0.2 10^3/uL (0.0-0.8); Eosinophils % 1.2 %; Hematocrit 27.2 % (37.0-47.0); Hemoglobin 8.9 g/dL (11.5-15.3); Lymphocytes # 2.2 10^3/uL (0.8-4.8); Lymphocytes % 14.6 %; Mean Corpuscular HGB Conc 32.7 g/dL (30.0-36.0); Mean Corpuscular Hemoglobin 26.9 pg (28.0-34.0); Mean Corpuscular Volume 82.2 fl (81-99); Monocytes # 0.9 10^3/uL (0.2-0.9); Monocytes % 5.8 %; Neutrophils # 11.59 10^3/uL (1.8-7.7); Neutrophils % 76.1 %; Nucleated Red Blood Cells % 0.2 %; Platelet Count 54 10^3/cmm (130-400); Red Blood Count 3.31 10^6/uL (4.1-5.3); Red Cell Distribution Width 17.8 % (12.1-15.1); White Blood Count 15.3 10^3/uL (4.0-10.0)
--- NOTE | 2021-04-08 10:46 | W.ED.SOB ---
HPI - SOB/Dyspnea General: Chief Complaint: Shortness of Breath/Dyspnea Stated Complaint: DIFF BREATHING Time Seen by Provider: 04/08/21 09:13 History of Present Illness: HPI Narrative: 70-year-old female presents emergency room complaining of weakness and increasing shortness of breath over the last several days. Patient is usually not on oxygen. 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 She has a significant malignant pleural effusion that has been increasing in size. She is also had multiple DVT and PE for which she currently is on apixaban. She is 91% on room air on arrival. She denies any hemoptysis to have recently decreased her apixaban to 2.5 twice daily. MD elicited complaint: shortness of breath Pertinent past history: COPD and other (Lung CA) Onset (ago): week(s) Timing: constant Severity: moderate Exacerbating factors: lying flat, exertion and coughing Relieving factors: oxygen, rest and upright position Known history of: COPD and other (Lung CA with pleural effusion) Associated symptoms: Reports chest congestion, cough, myalgias and orthopnea; Deny abdominal pain, chest pain, diaphoresis, dizziness, extremity pain, fever(s), hemoptysis, lightheadedness, nausea, palpitations, paresthesias, polydipsia, polyuria, rash, sense of impending doom, syncope or vomiting Treatment prior to arrival: oxygen Review of Systems Const: Denies: fever(s) or diaphoresis ENMT: Denies: throat pain, ear or mastoid pain, nasal discharge or nasal congestion Card: Reports: orthopnea; Denies: chest pain, palpitations, lightheadedness or syncope Resp: Reports: chest congestion; Denies: hemoptysis GI: Denies: abdominal pain, nausea or vomiting : Denies: flank pain, difficulty voiding, dysuria, urinary frequency or urinary urgency Musc: Denies: extremity pain Skin/Breast: Denies: rash or pruritus Neuro: Denies: dizziness Endo: Denies: polyuria or polydipsia PFSH ED PFSH: Medical History Bilateral lower extremity edema Chest pressure Dyspnea Encounter for medication management Essential hypertension Frequent UTI Murmur UTI symptoms Vitamin D deficiency Social History : has quit using tobacco Year quit tobacco: 2020 Former quit date comment: 1ppd x 50 years Female Reproductive History: Date of last menstrual period: 03/02/21 Physical Exam Const: GENERAL APPEARANCE: cooperative ORIENTATION/CONSCIOUSNESS: Yes awake HENMT: COMMON NORMALS: normocephalic, atraumatic and hearing grossly normal bilaterally HEAD & SCALP: normocephalic and atraumatic Neck/C-Spine: COMMON NORMALS: no JVD Resp: AUSCULTATION: diminished lung sounds on the left Cardio: COMMON NORMALS: no JVD, regular rate, regular rhythm and No murmurs present (Cardio) RATE: regular rate RHYTHM: regular rhythm GI: COMMON NORMALS: Soft to palpation and No hepatosplenomegaly present AUSCULTATION: Yes normoactive bowel sounds PALPATION: Yes Soft to palpation, No Tenderness to palpation present (GI), No Guarding due to palpation present (GI) and Yes No hepatosplenomegaly present Extremity: COMMON NORMALS: normal to inspection, capillary refill normal, no clubbing, cyanosis or edema, no calf tenderness and no pedal edema Skin: COMMON NORMALS: no rashes or lesions noted GENERAL SKIN EXAM: no rashes or lesions noted Course Vital Signs: Vital signs: Vital Signs Temperature 98.5 F 04/08/21 09:35 Pulse Rate 97 04/08/21 13:37 Respiratory Rate 22 H 04/08/21 13:37 Blood Pressure 132/52 04/08/21 10:32 Pulse Oximetry 98 04/08/21 13:37 MDM - SOB/Dyspnea MDM Narrative: Medical decision making narrative: Patient currently on apixaban for DVT. Discussed with Dr. Solis he is not comfortable doing a thoracentesis at this time until she has been off of the apixaban for at least 2 days. Discussed with radiology they are of the same opinion. This point we can provide oxygen supplementation which corrects her hypoxia. In discussion with Dr. Burdick she has had several thoracentesis in the past she was scheduled to have a pleural drain placed but has not yet had it done. He recommends that we discharge her home with oxygen and on 04/[address] pleural drain in the outpatient setting. Return to the ER if she has further problems. Discussed with patient and family. Lab Data: Labs: Lab Results 04/08/21 04/08/21 04/08/21 09:53 10:30 10:30 WBC 15.3 10^3/uL H 10 ^3/uL (4.0-10.0) RBC 3.31 10^6/uL L 10 ^6/uL (4.1-5.3) Hgb 8.9 g/dL L g/dL (11.5-15.3) Hct 27.2 % L % (37.0-47.0) MCV 82.2 fl fl (81-99) MCH 26.9 pg L pg (28.0-34.0) MCHC 32.7 g/dL g/dL (30.0-36.0) RDW 17.8 % H % (12.1-15.1) Plt Count 54 10^3/cmm L 10^ 3/cmm (130-400) MPV TNP Neut % (Auto) 76.1 % % Lymph % (Auto) 14.6 % % [place] % (Auto) 5.8 % % Eos % (Auto) 1.2 % % Baso % (Auto) 0.1 % % Neut # (Auto) 11.59 10^3/uL H 1 0^3/uL (1.8-7.7) Lymph # (Auto) 2.2 10^3/uL 10^3/ uL (0.8-4.8) [place] # (Auto) 0.9 10^3/uL 10^3/ uL (0.2-0.9) Eos # (Auto) 0.2 10^3/uL 10^3/ uL (0.0-0.8) Baso # (Auto) 0.0 10^3/uL 10^3/ uL (0.0-0.1) Nucleated RBC % (a uto) 0.2 % % Nucleated RBCs # 0.0 /100WBC /100W BC Pathologist Review No Hypochromasia Trace Poikilocytosis 1+ H Anisocytosis 1+ H Schistocytes Trace Specimen Type Arterial Sample Site Brachial, right ABG pH 7.48 H (7.35-7.45) ABG pCO2 33.3 mmHg L mmHg (35-45) ABG pO2 57.6 mmHg L mmHg (80.0-100.0) ABG HCO3 24.6 mmol/L mmol/ L (22-26) ABG O2 Saturation 91.3 ABG Base Excess 1.2 mmol/L mmol/L (-2.0-2.0) Arul Test N/a A-a O2 Gradient 6.6 mmHg mmHg (5-10) Hematocrit 27.0 % L % (37-47) Hgb O2 Saturation 88.7 % L % (95-100) Carboxyhemoglobin 1.6 %THgb %THgb (0.4-20.1) Methemoglobin 1.1 % % (0.4-1.5) Total Hemoglobin 8.8 g/dL L g/dL (12-16) Sodium 139.0 mmol/L mmol /L 139 mmol/L mmol/L (131-143) (136-145) Potassium 4.3 mmol/L mmol/L 4.5 mmol/L mmol/L (3.5-5.0) (3.5-5.1) Glucose 96.0 mg/dL mg/dL 86 mg/dL mg/dL (70-115) (65-115) Ionized Calcium 1.2 mmol/L mmol/L (1.1-1.4) O2 Delivery Device None FiO2 21.0 % % Insulation Board Coater Operator ID Rieri Chloride 103 mmol/L mmol/L (98-107) Carbon Dioxide 21 mmol/L L mmol/ L (22-29) Anion Gap 19.5 H (5-19) BUN 28 mg/dL H mg/dL (8-23) Creatinine 1.1 mg/dL H mg/dL (0.5-0.9) GFR Calculation 49.4 mL/min L mL/ min (90-130) Calculated Osmolal ity 293 mOsm/kg mOsm/ kg (285-295) Calcium 8.0 mg/dL L mg/dL (8.5-10.5) Total Bilirubin 0.7 mg/dL mg/dL (0.15-1.2) AST 33 U/L H U/L (0-32) ALT 19 U/L U/L (0-33) Alkaline Phosphata se 84 IU/L IU/L (35-105) Creatine Kinase 47 U/L U/L (26-192) Total Protein 6.1 g/dL L g/dL (6.6-8.7) Albumin 3.0 g/dL L g/dL (3.5-5.2) Globulin 3.1 g/dL g/dL (1.3-4.6) Discharge Plan Discharge Patient Disposition: Home Clinical Impression: Malignant pleural effusion, DVT (deep venous thrombosis), Pulmonary embolism Lung cancer Qualifiers: Laterality: unspecified laterality Condition: Stable Prescriptions: No Action atorvastatin [Lipitor] 80 mg tablet 80 mg PO DAILY RF: 0 potassium chloride [Klor-Con M10] 10 mEq tablet,ER particles/crystals 10 meq PO DAILY 30 Days Qty: 30 RF: 0 furosemide [Lasix] 20 mg tablet 10 - 20 mg PO DAILY 30 Days Qty: 30 RF: 0 multivitamin Tablet 1 tab PO DAILY RF: 0 apixaban 5 mg tablet 2.5 mg PO DAILY RF: 0 ondansetron 4 mg tablet,disintegrating 4 mg PO Q8H PRN (Reason: Nausea) RF: 0 lactulose [Generlac] 10 gram/15 mL solution 15 ml PO Q2H PRN (Reason: Constipation) RF: 0 prednisone 10 mg tablet 10 mg PO DAILY RF: 0 clonazepam 0.5 mg tablet 0.5 mg PO DAILY PRN (Reason: Anxiety) RF: 0 fluoxetine [Prozac] 10 mg capsule 10 mg PO DAILY MDD see pharmacy comment PRN (Reason: Anxiety) RF: 0 Discharge Orders: Discharge ED (Routine); Ordered 04/08/21 Ordered By: Gamal Moore Other Ambulatory Orders: DME: Oxygen (Order) Location: None Selected Ordered By: Gamal Moore Referrals: DB Tan, STEAM CLEAN MACHINE OPERATOR [Primary Care Provider] - Patient Instructions: Opioid Safety Coding Level of Care Code ED Merchandise Flow Associate for Nikko Perez
[2021-04-08 10:53] LABS: Alanine Aminotransferase 19 U/L (0-33); Alkaline Phosphatase 84 IU/L (35-105); Anion Gap 19.5 (5-19); Aspartate Amino Transferase 33 U/L (0-32); Blood Urea Nitrogen 28 mg/dL (8-23); Carbon Dioxide 21 mmol/L (22-29); Chloride 103 mmol/L (98-107); Creatine Phosphokinase 47 U/L (26-192); Globulin 3.1 g/dL (1.3-4.6); Glomerular Filtration Rate 49.4 mL/min (90-130); Glucose 86 mg/dL (65-115); Osmolality Calculated 293 mOsm/kg (285-295); Potassium 4.5 mmol/L (3.5-5.1); Sodium 139 mmol/L (136-145); Total Bilirubin 0.7 mg/dL (0.15-1.2); Total Protein 6.1 g/dL (6.6-8.7)
[2021-04-08 10:58] LABS: Add RBC Morph Yes; Slide Review Slide Review Perform
[2021-04-08 10:59] LABS: Anisocytosis 1+; Poikilocytosis 1+
[2021-04-08 11:00] LABS: Hypochromasia Trace; Pathology Refferal No; RBC Morph Comp Yes; Schistocytes Trace
[2021-04-08 11:20] VITALS: O2SAT 85
[2021-04-08 11:32] VITALS: PULSE 88; PULSE 92; RESP 23; O2SAT 98
--- NOTE | 2021-04-08 12:00 | DCPLANNER ---
Addendum entered by Jocelyn Kumar 04/09/21 05:30: tutoring manager was asked to cancel the thoracentesis and to schedule a drain placement for patient. tutoring manager faxed new signed order to centralized scheduling. Original Note: tutoring manager was asked to schedule an outpatient thoracentesis for patient. tutoring manager faxed signed order to centralized scheduling, who will call patient with appointment information.
[2021-04-08 13:00] VITALS: PULSE 97; RESP 22; O2SAT 98
[2021-04-08 13:37] VITALS: PULSE 97; RESP 22; O2SAT 98
== END 2021-04-08 13:37 | disposition home or self-care (01) ==
PROVIDERS: Emergency Provider Family Medicine; PCP Nurse Practitioner Family
DX: C34.90 Malignant neoplasm of unspecified part of unspecified bronchus or lung (principal); J91.0 Malignant pleural effusion; I26.99 Other pulmonary embolism without acute cor pulmonale; I82.409 Acute embolism and thrombosis of unspecified deep veins of unspecified lower extremity; Z79.01 Long term (current) use of anticoagulants; I10 Essential (primary) hypertension; Z87.891 Personal history of nicotine dependence
CPT/HCPCS: 36600; 71045; 80051; 80053; 82330; 82550; 82805; 85025; 93005; 99284

== ENCOUNTER 2021-04-09 18:10 | Emergency (ER) | payer MEDICARE, SELFPAY ==
--- NOTE | 2021-04-09 18:12 | W.ED.SOB ---
Documented by User: Alton Hudson MD 04/16/21 22:33 HPI - SOB/Dyspnea General: Chief Complaint: Shortness of Breath/Dyspnea Stated Complaint: RESPIRATORY DISTRESS/ LUNG CA Time Seen by Provider: 04/09/21 18:12 History of Present Illness: HPI Narrative: Ms Manuel is a 70 year old lady with history of hypertension, hyperlipidemia, diabetes, ID, CKD, PEs on anticoagulation, metastatic lung cancer and malignant pleural effusion who presents to the ED due to shortness of breath. She has previously had thoracentesis as recently as 03/26. However, since thoracentesis, symptoms have gradually returned and then worsened. She presented to the emergency department yesterday and at that time was found to have worsening/recurrence. She qualified for home oxygen which she was discharged with 2 L, mildly improved. There was discussion of thoracentesis at that time however given recent use (Monday morning) of Eliquis this was deemed too high risk. She went home however symptoms continue to worsen. Shortness of breath is worse with exertion and is now marked with. She has significantly decreased exercise tolerance. No infectious symptoms. She has had increase of her new home oxygen from 2 L yesterday to 4.5 L today. No other new change to health, exacerbating, or alleviating factors identified. She has held, under doctor's orders, her Eliquis with plan to have a Pleurx catheter this coming week. Review of Systems General: Reports: 10 or more systems reviewed and unremarkable except in HPI and below PFSH ED PFSH: Medical History Bilateral lower extremity edema Chest pressure Dyspnea Encounter for medication management Essential hypertension Frequent UTI Murmur UTI symptoms Vitamin D deficiency Social History Quit status (tobacco): has quit using tobacco Year quit tobacco: 2020 Former quit date comment: 1ppd x 50 years Female Reproductive History: Date of last menstrual period: 03/02/21 Physical Exam Narrative: EXAM NARRATIVE: GENERAL/CONSTITUTIONAL - ill-appearing. Increased work of breathing Eyes - PERRL, no conjunctival injection ENMT - Atraumatic external nose and ears. NECK - supple. trachea midline CARDIOVASCULAR -tachycardic rate and regular rhythm. Normal peripheral perfusion. RESPIRATORY - Marked decrease in lung sounds on the left with only minimal lung sounds appreciated superiorly. . Increased work of breathing. Marked increased work of breathing with exertion or decrease in oxygen. ABDOMEN/GI - Nontender/Nondistended. No tenderness to percussion or evidence of peritonitis MSK - Extremities without obvious deformity or tenderness to palpation SKIN - Warm, Dry NEURO - alert and appropriately oriented. Moves all extremities equally. Course ED course: - Patient was seen and evaluated by me at bedside - Patient placed on cardiac monitors, IV access obtained - Initial evaluation notable for exam as noted above - Labs notable for leukocytosis, somewhat near baseline normocytic anemia. Platelet count 52. Metabolic panel without acute electrolyte derangement to explain symptoms. There has been progression of decreased bicarb and increased anion gap likely secondary to respiratory status. - Imaging notable for large left pleural effusion. - Unfortunately this is a very complex situation. Based on recent history and clinical examination I do believe that the patient needs thoracentesis and cannot reasonably wait until Monday for Pleurx catheter placement. - Initially I offered the patient a few different plans, unfortunately no good plan exists, potentially could admit for observation until Pleurx catheter placement next week, additionally could look at transfer, or could perform thoracentesis in the emergency department with optimization via transfusion of platelets with plan to admit the patient for observation overnight for potential complications. - I discussed this case with hospitalist and unfortunately, probably reasonably so, without backup specialty including no on-call scale attendant, cardiothoracic surgery, or interventional radiology he is uncomfortable with the patient staying here either without procedural rhythm procedure. Certainly in discussion of options with the patient she is high risk for thoracentesis especially in the emergency department. - We will attempt to transfer patient to facility with thoracentesis capability and backup specialties for concern over possible complications Vital Signs: Vital signs: Vital Signs Temperature 97.4 F L 04/10/21 06:13 Pulse Rate 94 04/10/21 06:13 Respiratory Rate 16 04/10/21 06:13 Blood Pressure 122/63 04/10/21 06:13 Pulse Oximetry 96 04/10/21 04:40 MDM - SOB/Dyspnea Medical Records: Attestation: I reviewed the patient's medical records. Lab Data: Attestation: I reviewed the patient's lab results. Labs: Lab Results 04/09/21 04/09/21 04/09/21 19:08 19:08 21:31 WBC 12.9 10^3/uL H 10 ^3/uL (4.0-10.0) RBC 3.19 10^6/uL L 10 ^6/uL (4.1-5.3) Hgb 8.4 g/dL L g/dL (11.5-15.3) Hct 26.9 % L % (37.0-47.0) MCV 84.3 fl fl (81-99) MCH 26.3 pg L pg (28.0-34.0) MCHC 31.2 g/dL g/dL (30.0-36.0) RDW 18.2 % H % (12.1-15.1) Plt Count 52 10^3/cmm L 10^ 3/cmm (130-400) MPV Not Reportable Neut % (Auto) 80.6 % % Lymph % (Auto) 11.2 % % [place] % (Auto) 3.5 % % Eos % (Auto) 0.5 % % Baso % (Auto) 0.2 % % Neut # (Auto) 10.40 10^3/uL H 1 0^3/uL (1.8-7.7) Lymph # (Auto) 1.4 10^3/uL 10^3/ uL (0.8-4.8) [place] # (Auto) 0.5 10^3/uL 10^3/ uL (0.2-0.9) Eos # (Auto) 0.1 10^3/uL 10^3/ uL (0.0-0.8) Baso # (Auto) 0.0 10^3/uL 10^3/ uL (0.0-0.1) Nucleated RBC % (a uto) 0.2 % % Nucleated RBCs # 0.0 /100WBC /100W BC Sodium 138 mmol/L mmol/L (136-145) Potassium 3.9 mmol/L mmol/L (3.5-5.1) Chloride 102 mmol/L mmol/L (98-107) Carbon Dioxide 18 mmol/L L mmol/ L (22-29) Anion Gap 21.9 H (5-19) BUN 30 mg/dL H mg/dL (8-23) Creatinine 1.0 mg/dL H mg/dL (0.5-0.9) GFR Calculation 55.1 mL/min L mL/ min (90-130) Glucose 129 mg/dL H mg/dL (65-115) Calculated Osmolal ity 294 mOsm/kg mOsm/ kg (285-295) Calcium 7.9 mg/dL L mg/dL (8.5-10.5) Blood Type A Positive Rho(D) Type Positive Discharge Plan Discharge Patient Disposition: Xfer Short-Term Hosp Clinical Impression: Pleural effusion due to another disorder, Acute hypoxemic respiratory failure Lung cancer Qualifiers: Laterality: unspecified laterality Condition: Stable Referrals: Britney,DB, ASTRONOMY TEACHER [Primary Care Provider] - Coding Level of Care Code ED Senior Mortgage Underwriter for Chg Fwd Documented by User: Koko Daly DO 04/10/21 04:04 HPI - SOB/Dyspnea General: Chief Complaint: Shortness of Breath/Dyspnea Stated Complaint: RESPIRATORY DISTRESS/ LUNG CA Time Seen by Provider: 04/09/21 18:12 PFSH ED PFSH: Medical History Bilateral lower extremity edema Chest pressure Dyspnea Encounter for medication management Essential hypertension Frequent UTI Murmur UTI symptoms Vitamin D deficiency Social History Quit status (tobacco): has quit using tobacco Year quit tobacco: 2020 Former quit date comment: 1ppd x 50 years Course ED course: 70-year-old female checked out to me by the previous physician at shift change. This lady has a complicated malignant pleural effusion with significant hypoxia. Her platelet count is 50. She has been on apixaban, and off for approximately 60 hours. We have no subspecialty backup including no pulmonary/critical care and no thoracic surgery in house. She has been accepted at [facility] in [place]. Due to long transfer, we checked for air transport, which is not available due to weather. We have an ambulance going out at 0500. She is getting irradiated platelets currently on her second unit. Total of 4 units. Vital Signs: Vital signs: Vital Signs Temperature 97.4 F L 04/10/21 06:13 Pulse Rate 94 04/10/21 06:13 Respiratory Rate 16 04/10/21 06:13 Blood Pressure 122/63 04/10/21 06:13 Pulse Oximetry 96 04/10/21 04:40 MDM - SOB/Dyspnea Lab Data: Labs: Lab Results 04/09/21 04/09/21 04/09/21 19:08 19:08 21:31 WBC 12.9 10^3/uL H 10 ^3/uL (4.0-10.0) RBC 3.19 10^6/uL L 10 ^6/uL (4.1-5.3) Hgb 8.4 g/dL L g/dL (11.5-15.3) Hct 26.9 % L % (37.0-47.0) MCV 84.3 fl fl (81-99) MCH 26.3 pg L pg (28.0-34.0) MCHC 31.2 g/dL g/dL (30.0-36.0) RDW 18.2 % H % (12.1-15.1) Plt Count 52 10^3/cmm L 10^ 3/cmm (130-400) MPV Not Reportable Neut % (Auto) 80.6 % % Lymph % (Auto) 11.2 % % [place] % (Auto) 3.5 % % Eos % (Auto) 0.5 % % Baso % (Auto) 0.2 % % Neut # (Auto) 10.40 10^3/uL H 1 0^3/uL (1.8-7.7) Lymph # (Auto) 1.4 10^3/uL 10^3/ uL (0.8-4.8) [place] # (Auto) 0.5 10^3/uL 10^3/ uL (0.2-0.9) Eos # (Auto) 0.1 10^3/uL 10^3/ uL (0.0-0.8) Baso # (Auto) 0.0 10^3/uL 10^3/ uL (0.0-0.1) Nucleated RBC % (a uto) 0.2 % % Nucleated RBCs # 0.0 /100WBC /100W BC Sodium 138 mmol/L mmol/L (136-145) Potassium 3.9 mmol/L mmol/L (3.5-5.1) Chloride 102 mmol/L mmol/L (98-107) Carbon Dioxide 18 mmol/L L mmol/ L (22-29) Anion Gap 21.9 H (5-19) BUN 30 mg/dL H mg/dL (8-23) Creatinine 1.0 mg/dL H mg/dL (0.5-0.9) GFR Calculation 55.1 mL/min L mL/ min (90-130) Glucose 129 mg/dL H mg/dL (65-115) Calculated Osmolal ity 294 mOsm/kg mOsm/ kg (285-295) Calcium 7.9 mg/dL L mg/dL (8.5-10.5) Blood Type A Positive Rho(D) Type Positive Discharge Plan Discharge Patient Disposition: Xfer Short-Term Hosp Clinical Impression: Pleural effusion due to another disorder, Acute hypoxemic respiratory failure Lung cancer Qualifiers: Laterality: unspecified laterality Condition: Stable Referrals: DB Tan, ASTRONOMY TEACHER [Primary Care Provider] - Coding Level of Care Code ED Senior Mortgage Underwriter for Nikko Perez
[2021-04-09 18:13] VITALS: BP 127/68; PULSE 118; RESP 24; TEMP 36.6; O2SAT 93; BMI 23.9
[2021-04-09 18:39] VITALS: BP 127/68; PULSE 118; RESP 24; TEMP 36.6; O2SAT 93
--- NOTE | 2021-04-09 18:39 | XRR_ITS ---
PROCEDURE INFORMATION: Exam: XR Chest Exam date and time: 04/09/2021 6:39 PM Age: 70 years old Clinical indication: Shortness of breath; Patient HX: Stage 4 lung cancer; Additional info: Pleural effusion. SOB TECHNIQUE: Imaging protocol: XR of the chest. Views: 2 views. COMPARISON: CR XR chest 1V portable [id number] 04/08/2021 9:46 AM FINDINGS: Lungs: Stable consolidation in the left lung base and left perihilar region. The right lung is clear. Pleural spaces: Stable large left pleural effusion. No pneumothorax. Heart/Mediastinum: Unremarkable. No cardiomegaly. Bones/joints: Unremarkable. Intraperitoneal space: Multiple clips in the upper right abdomen. XR/XR chest 2V* [id number] IMPRESSION: 1. Stable large left pleural effusion and left lung consolidation.
[2021-04-09 19:20] LABS: Basophils % 0.2 %; Eosinophils # 0.1 10^3/uL (0.0-0.8); Eosinophils % 0.5 %; Hematocrit 26.9 % (37.0-47.0); Hemoglobin 8.4 g/dL (11.5-15.3); Lymphocytes # 1.4 10^3/uL (0.8-4.8); Lymphocytes % 11.2 %; Mean Corpuscular HGB Conc 31.2 g/dL (30.0-36.0); Mean Corpuscular Hemoglobin 26.3 pg (28.0-34.0); Mean Corpuscular Volume 84.3 fl (81-99); Monocytes # 0.5 10^3/uL (0.2-0.9); Monocytes % 3.5 %; Neutrophils % 80.6 %; Nucleated Red Blood Cells % 0.2 %; Platelet Count 52 10^3/cmm (130-400); Red Blood Count 3.19 10^6/uL (4.1-5.3); Red Cell Distribution Width 18.2 % (12.1-15.1); White Blood Count 12.9 10^3/uL (4.0-10.0)
[2021-04-09 19:34] LABS: Anion Gap 21.9 (5-19); Blood Urea Nitrogen 30 mg/dL (8-23); Calcium 7.9 mg/dL (8.5-10.5); Carbon Dioxide 18 mmol/L (22-29); Chloride 102 mmol/L (98-107); Glomerular Filtration Rate 55.1 mL/min (90-130); Glucose 129 mg/dL (65-115); Osmolality Calculated 294 mOsm/kg (285-295); Potassium 3.9 mmol/L (3.5-5.1); Sodium 138 mmol/L (136-145)
[2021-04-09 20:29] VITALS: BP 97/55; PULSE 110; O2SAT 95
[2021-04-10 01:36] VITALS: BP 134/63; PULSE 95; RESP 16; TEMP 36.4
[2021-04-10] MEDS: LORazepam 2 mg/mL INJ 1 mL 0.5 MG IVP (01:59)
[2021-04-10 03:01] VITALS: BP 121/59; PULSE 88; RESP 14; TEMP 36.1; O2SAT 98
[2021-04-10 04:40] VITALS: BP 108/65; PULSE 87; RESP 16; TEMP 36.3; O2SAT 96
[2021-04-10 06:13] VITALS: BP 122/63; PULSE 94; RESP 16; TEMP 36.3
--- NOTE | 2021-04-13 13:32 | DCPLANNER ---
Patient had a follow up appointment scheduled for a [place] drain placement scheduled for 21 - patient did attend appointment.
== END 2021-04-10 06:54 | disposition short-term general hospital (02) ==
PROVIDERS: Emergency Medicine; Emergency Provider Emergency Medicine; PCP Nurse Practitioner Family
DX: J90 Pleural effusion, not elsewhere classified (principal); J96.01 Acute respiratory failure with hypoxia; C34.90 Malignant neoplasm of unspecified part of unspecified bronchus or lung; I10 Essential (primary) hypertension; Z87.891 Personal history of nicotine dependence
CPT/HCPCS: 36430; 71046; 80048; 85025; 86900; 96374; 99284; J2060; P9016

== ENCOUNTER 2021-04-12 11:32 | Day surgery (SDC) | payer MEDICARE, SELFPAY ==
[2021-04-08 15:04] VITALS: BMI 23.9
[2021-04-12] VITALS (11 sets, daily range): BP systolic 96–161; BP diastolic 35–66; PULSE 88–107; RESP 16–20; TEMP 36.1–36.6; O2SAT 92–100
[2021-04-12] MEDS: sodium chloride 0.9% 1,000 ML 30 ML IV (12:11)
--- NOTE | 2021-04-12 13:13 | P.HP_ITS ---
Same Day Surgery H&P Indication for Procedure/HPI DATE OF PROCEDURE: April 12, 2021 CHIEF COMPLAINT/INDICATIONFOR SURGICAL PROCEDURE: Recurrent left-sided pleural effusion PREOP DIAGNOSIS: Malignant pleural effusion PLANNED PROCEDRUE: Left-sided tunneled pleural catheter placement Operation Date: 04/12/21 13:10 Proposed Procedures p [place] Drain Placement Pleural Catheter Insertion(Left) - Amita Solis MD This is a 70-year-old lady with with stage IV metastatic lung cancer. The patient has malignant pleural effusion involving the left hemithorax. She has been drained multiple times and coming in today for Pleurx catheter placement. Medications/Allergies* Home Medications Medication Instructions Recorded Confirmed Type multivitamin 1 tab PO DAILY 02/07/21 04/08/21 History atorvastatin 80 mg tablet 80 mg PO DAILY 03/10/21 04/08/21 History clonazepam 0.5 mg PO DAILY PRN 03/26/21 04/08/21 History fluoxetine [Prozac] 10 mg PO DAILY PRN MDD see 03/26/21 04/08/21 History pharmacy comment prednisone 10 mg PO DAILY 03/26/21 04/08/21 History apixaban 2.5 mg PO DAILY 04/08/21 04/08/21 History lactulose [Generlac] 15 ml PO Q2H PRN 04/12/21 04/12/21 History ondansetron 4 mg PO Q8H PRN 04/12/21 04/12/21 History Allergies/Adverse Reactions Allergy/AdvReac Type Severity Reaction Status Date / Time No Known Allergies Allergy Verified 04/09/21 18:12 Current Medications: Generic Name Dose Route Start Last Admin Trade Name Freq PRN Reason Stop Dose Admin Sodium Chloride 1,000 mls @ 30 mls/hr 04/12/21 12:00 04/12/21 12:11 Sodium Chloride 0.9% IV 30 mls/hr .Q24H QUAN Administration Pertinent History/Comorbid Conditions* Medical History (Updated 04/10/21 @ 04:03 by Koko Daly DO) Bilateral lower extremity edema Chest pressure Dyspnea Encounter for medication management Essential hypertension Frequent UTI Murmur UTI symptoms Vitamin D deficiency Social History Quit status (tobacco): has quit using tobacco Year quit tobacco: 2020 Former quit date comment: 1ppd x 50 years Pertinent Exam Findings alert, oriented x 3, regular rate & rhythm and procedure specific exam findings (Reduced breath sound in the left hemithorax both anteriorly and posteriorly) Recommendations Surgery/Procedure today Coding Level of Care Code Acute Personnel Quality Assurance Auditor for Nikko Perez
[2021-04-12] MEDS: fentaNYL 50 mcg/mL INJ 2mL 25 MCG IVP ×2 (13:35→13:43)
[2021-04-12] MEDS: midazolam 1 mg/mL INJ 2 mL IVP ×2 (13:37→13:44)
--- NOTE | 2021-04-12 13:47 | PC.NURSE ---
15 mL of lidocaine injected using lidocaine that was in [place] drain kit. 10 mL of lidocaine used from lidocaine from [facility]is.
[2021-04-12] MEDS: lidocaine 2% INJ 20 mL 10 ML INJECTION (13:50)
--- NOTE | 2021-04-12 14:09 | PC.NURSE ---
[place] drain placed and 500 mL of pleural fluid drained at this time.
--- NOTE | 2021-04-12 14:12 | PM.OP ---
Operative Report Date of procedure: April 12, 2021 Pre-op Diagnosis: Malignant pleural effusion Post-op diagnosis: same Procedure: Name of the procedure: Left-sided Pleurx catheter placement Anesthesia: Conscious sedation. Local: 1% lidocaine 25 mL. Description of the procedure: The patient was brought to the OR after consent was obtained. The patient was placed in right lateral position. Using the ultrasound a safe fluid pocket was identified in the left seventh intercostal space in the midaxillary line. The site was marked. The patient was then prepared using sterile technique. 1% lidocaine was used to anesthetize the skin and subcutaneous tissue periosteum and the pleural space was entered. Serosanguineous fluid was aspirated. The introducer needle was then introduced into the pleural space. The guide wire was introduced and left in place. About 6 cm from the initial introduction site in the anterolateral chest wall a second incision was made. The pleural catheter was then tunneled under the skin with the help of a trocar. The initial site was then dilated and the Pleurx catheter was advanced into the pleural space without any difficulty. The incision sites were sutured. There was good hemostasis. 500 cc of serosanguineous fluid was drained. Complications: None Chest x-ray: Pending Follow-up: 1. The patient will follow-up with me in 10 days time for removal of sutures.
--- NOTE | 2021-04-12 14:22 | XRR_ITS ---
PROCEDURE INFORMATION: Exam: XR Chest Exam date and time: 04/12/2021 2:22 PM Age: 70 years old Clinical indication: Other non-vascualr catheter or device placement; Hitchcock drain; Additional info: [place] drain placement TECHNIQUE: Imaging protocol: XR of the chest. Views: 1 view. COMPARISON: CR (CHEST, ) 04/09/2021 6:43 PM FINDINGS: Tubes, catheters and devices: Interval placement of left pleural drain terminating at the left lung base. Lungs: Atelectasis in the region of the left pleural effusion. Pleural spaces: Mildly decreased size of a moderate to large volume left pleural effusion. Heart/Mediastinum: Stable heart size. Bones/joints: Unremarkable. XR/XR chest 1V portable [id number] IMPRESSION: Interval placement of a left pleural drain. Mild interval decrease in size of the moderate to large left pleural effusion.
--- NOTE | 2021-04-12 16:17 | PC.NURSE ---
Pt needed IV access for her iron infusion appt at Dr. Irving's office immediately after departure from GI Unit, I left IV intact after first adding J-Loop flushing line to verify patency and secured with tape, per Dr. Corral's order.
== END 2021-04-12 16:10 | disposition home or self-care (01) ==
PROVIDERS: PCP Nurse Practitioner Family; Visit Provider Internal Medicine Critical Care Medicine
PROC: (CPT 32550; principal; 2021-04-12 13:00)
DX: C80.1 Malignant (primary) neoplasm, unspecified (principal); J91.0 Malignant pleural effusion; C34.90 Malignant neoplasm of unspecified part of unspecified bronchus or lung; I10 Essential (primary) hypertension; Z87.891 Personal history of nicotine dependence
CPT/HCPCS: 32550; 71045; 96360; 96361; 96374; 96375; J2250; J3010; J7030

== ENCOUNTER → 2021-04-14 11:10 | Day surgery (SDC) | payer MEDICARE, SELFPAY ==
[2021-04-14 11:30] VITALS: BP 99/44; PULSE 109; RESP 18; TEMP 36.2; O2SAT 95
== END ==
PROVIDERS: PCP Nurse Practitioner Family; Visit Provider Internal Medicine Critical Care Medicine
DX: J91.0 Malignant pleural effusion (principal); C80.1 Malignant (primary) neoplasm, unspecified

== ENCOUNTER → 2021-04-16 11:25 | Day surgery (SDC) | payer MEDICARE, SELFPAY ==
[2021-04-16 11:15] VITALS: BP 120/45; PULSE 105; RESP 17; TEMP 36.8; O2SAT 95
== END ==
PROVIDERS: PCP Nurse Practitioner Family; Visit Provider Internal Medicine Critical Care Medicine
DX: C80.1 Malignant (primary) neoplasm, unspecified (principal); J91.0 Malignant pleural effusion

== ENCOUNTER → 2021-04-19 09:49 | Day surgery (SDC) | payer MEDICARE, SELFPAY ==
--- NOTE | 2021-04-19 10:10 | PC.NURSE ---
Pt to GI lab for drainage of Pluerx cath. 700 mL dark edgardo fluid removed. Pt tolerated well. Denies SOB or pain. Dressing applied per protocol.
[2021-04-19 10:26] VITALS: BP 119/50; PULSE 92; RESP 18; TEMP 36.1; O2SAT 97
== END ==
PROVIDERS: PCP Nurse Practitioner Family; Visit Provider Internal Medicine Critical Care Medicine
DX: C80.1 Malignant (primary) neoplasm, unspecified (principal); J91.0 Malignant pleural effusion

== ENCOUNTER 2021-04-19 10:28 | Outpatient (CLI) | payer MEDICARE, SELFPAY ==
[2021-04-19 11:13] LABS: Basophils % 0.2 %; Eosinophils % 0.1 %; Hematocrit 27.9 % (37.0-47.0); Hemoglobin 8.6 g/dL (11.5-15.3); Lymphocytes # 0.9 10^3/uL (0.8-4.8); Lymphocytes % 5.8 %; Mean Corpuscular HGB Conc 30.8 g/dL (30.0-36.0); Mean Corpuscular Volume 84.3 fl (81-99); Monocytes # 0.4 10^3/uL (0.2-0.9); Monocytes % 2.9 %; Neutrophils # 12.65 10^3/uL (1.8-7.7); Nucleated Red Blood Cells % 0.3 %; Platelet Count 70 10^3/cmm (130-400); Red Blood Count 3.31 10^6/uL (4.1-5.3); Red Cell Distribution Width 19.8 % (12.1-15.1); White Blood Count 14.7 10^3/uL (4.0-10.0)
[2021-04-19 11:32] LABS: Alanine Aminotransferase 21 U/L (0-33); Albumin Level 3.2 g/dL (3.5-5.2); Alkaline Phosphatase 79 IU/L (35-105); Anion Gap 18.8 (5-19); Aspartate Amino Transferase 35 U/L (0-32); Blood Urea Nitrogen 36 mg/dL (8-23); Carbon Dioxide 21 mmol/L (22-29); Chloride 100 mmol/L (98-107); Glomerular Filtration Rate 44.7 mL/min (90-130); Glucose 100 mg/dL (65-115); Osmolality Calculated 290 mOsm/kg (285-295); Potassium 3.8 mmol/L (3.5-5.1); Sodium 136 mmol/L (136-145); Thyroid Stimulating Hormone 1.02 uIU/mL (0.27-4.20); Total Bilirubin 0.8 mg/dL (0.15-1.2); Total Protein 6.2 g/dL (6.6-8.7)
[2021-04-19 12:08] LABS: Fibrinogen 49 mg/dL (174-498)
[2021-04-19] MEDS: sodium chloride 0.9% 250 ML 125 ML IV (13:14)
[2021-04-19] MEDS: ferric carboxy (IVPB) 750 MG in sodium chloride 0.9% (100 ml) 100 ML 460 MG IV (13:14)
== END 2021-04-19 10:29 | disposition home or self-care (01) ==
LOC: ONCMED 10:32
PROVIDERS: Internal Medicine Medical Oncology; PCP Nurse Practitioner Family; Visit Provider Nurse Practitioner Family
DX: Z51.12 Encounter for antineoplastic immunotherapy (principal); C34.12 Malignant neoplasm of upper lobe, left bronchus or lung; J91.0 Malignant pleural effusion; C77.3 Secondary and unspecified malignant neoplasm of axilla and upper limb lymph nodes; D68.59 Other primary thrombophilia; I82.593 Chronic embolism and thrombosis of other specified deep vein of lower extremity, bilateral; Z79.01 Long term (current) use of anticoagulants; I26.99 Other pulmonary embolism without acute cor pulmonale; I63.89 Other cerebral infarction; D50.9 Iron deficiency anemia, unspecified; Z87.440 Personal history of urinary (tract) infections; Z79.899 Other long term (current) drug therapy; C80.1 Malignant (primary) neoplasm, unspecified
CPT/HCPCS: 80053; 84443; 85025; 85384; 96367; 96413; 99215; J1439; J7050; J9271

== ENCOUNTER → 2021-04-21 11:34 | Day surgery (SDC) | payer MEDICARE, SELFPAY ==
[2021-04-21 11:45] VITALS: BP 86/46; PULSE 92; RESP 18; TEMP 35.9; O2SAT 97
--- NOTE | 2021-04-21 11:45 | PC.NURSE ---
Pt to GI lab for drainage of Pleurx cath. Pt daughter with pt and states pt had a fall yesterday evening on the same side of the catheter. Slight new bruising noted at top of Pleurx cath dressing and towards her back. 650 mL sanguineous drainage drained from catheter. BP noted at 86/46 with HR 92. Pt denies pain to Pleurx drain site. States she doesn't feel like anything is broken, she is just sore. Pt states she has not been drinking fluid very well over the past few days. Pt encouraged to increase fluids and return to ER for increasing fatigue, pain, or SOB. Dr. Solis notified of fall and change to sanguineous drainage from dark edgardo drainage on Monday. Pt to return on Monday for drainage of Pleurx cath and suture removal from site.
== END ==
LOC: GILAB 11:35
PROVIDERS: PCP Nurse Practitioner Family; Visit Provider Internal Medicine Critical Care Medicine
DX: C80.1 Malignant (primary) neoplasm, unspecified (principal); J91.0 Malignant pleural effusion

== ENCOUNTER → 2021-04-23 11:11 | Day surgery (SDC) | payer MEDICARE, SELFPAY ==
[2021-04-23 11:23] VITALS: BP 98/53; PULSE 98; RESP 18; TEMP 36.4; O2SAT 96; BMI 23.0
--- NOTE | 2021-04-23 11:57 | XR_ITS ---
WS: [id number] PA and lateral chest, 04/23/2021 Clinical Data: fell on [place] drain tube, drainage is bloody Comparison: Portable chest, 04/12/2021. Findings: No nodules or masses are seen. The left pleural effusion has diminished. The small left ple ural based drain remains in position. No pneumothorax is seen. No pneumonia is present. The right elias g is clear. The aortic arch and descending thoracic aorta show calcification and tortuosity. There ar e clips in the right upper quadrant which may be from a cholecystectomy. XR/XR chest 2V* [id number] Impression: 1. Decrease in left pleural effusion and no change in left pleural-based drain. 2. Atherosclerosis.
== END ==
LOC: GILAB 11:13
PROVIDERS: PCP Nurse Practitioner Family; Visit Provider Internal Medicine Critical Care Medicine
DX: Z97.8 Presence of other specified devices (principal); Z91.81 History of falling
CPT/HCPCS: 71046

== ENCOUNTER 2021-04-26 06:40 | Outpatient (CLI) | payer MEDICARE, SELFPAY ==
[2021-04-26] MEDS: ferric carboxy (IVPB) 750 MG in sodium chloride 0.9% (100 ml) 100 ML 345 MG IV (11:30)
== END 2021-04-26 06:41 | disposition home or self-care (01) ==
PROVIDERS: PCP Nurse Practitioner Family; Visit Provider Internal Medicine Medical Oncology
DX: D50.9 Iron deficiency anemia, unspecified (principal); Z79.01 Long term (current) use of anticoagulants; Z79.899 Other long term (current) drug therapy
CPT/HCPCS: 96365; J1439

== ENCOUNTER → 2021-04-26 10:31 | Day surgery (SDC) | payer MEDICARE, SELFPAY ==
[2021-04-26 10:40] VITALS: BP 98/41; PULSE 93; RESP 18; TEMP 36.4; O2SAT 93
--- NOTE | 2021-04-26 10:45 | PC.NURSE ---
Pt to GI lab for drainage of Pleurx drain to left chest. Pt requested earlier appointment due to feeling short of breath. 550 mL dark edgardo fluid drained. Pt states breathing is better following drainage. Mild bruising still noted from fall several days ago. Drainage no longer bloody. VSS. Pt complains of extreme fatigue. Pt and daughter state it is very hard for her to come 3x week and were wondering if home health would be an option. Dr. Solis notified.
== END ==
PROVIDERS: PCP Nurse Practitioner Family; Visit Provider Internal Medicine Critical Care Medicine
DX: C80.1 Malignant (primary) neoplasm, unspecified (principal); J91.0 Malignant pleural effusion

== ENCOUNTER → 2021-04-28 12:06 | Day surgery (SDC) | payer MEDICARE, SELFPAY ==
[2021-04-28 12:15] VITALS: BP 101/52; PULSE 106; RESP 18; TEMP 36.3; O2SAT 97
--- NOTE | 2021-04-28 12:20 | PC.NURSE ---
Pt to GI lab for drainage of Pleurx cath to left chest. Dr. Russo present to watch drainage of catheter. Pt to be transferred to [facility] starting 05/17/21 for drainage of catheter. Dr. Russo to oversee drainage of catheter there. 500 mL dark edgardo fluid returned. Pt tolerated well. Healing bruising noted to drainage site from previous fall. Area improving. Pt VSS. Patient and family member updated on plan of care and agreeable to care at [facility]. The clinic is better located for pt and will reduce travel time and inconvenience.
== END ==
PROVIDERS: PCP Nurse Practitioner Family; Visit Provider Internal Medicine Critical Care Medicine
DX: C80.1 Malignant (primary) neoplasm, unspecified (principal); J91.0 Malignant pleural effusion

== ENCOUNTER 2021-04-29 06:56 | Emergency (ER) | payer MEDICARE, SELFPAY ==
[2021-04-29] VITALS (13 sets, daily range): BP systolic 82–166; BP diastolic 45–71; PULSE 75–104; RESP 14–18; TEMP 36.7–37.1; O2SAT 94–100; BMI 23.0
--- NOTE | 2021-04-29 07:10 | CTR_ITS ---
PROCEDURE INFORMATION: Exam: CT Abdomen And Pelvis With Contrast Exam date and time: 04/29/2021 7:10 AM Age: 70 years old Clinical indication: Bloating; Prior surgery; Surgery date: 6+ months; Surgery type: Gb/chest drain; Additional info: Abd pain llq - bloating TECHNIQUE: Imaging protocol: Computed tomography of the abdomen and pelvis with contrast. Total images: 212 Radiation optimization: All CT scans at this facility use at least one of these dose optimization techniques: automated exposure control; mA and/or kV adjustment per patient size (includes targeted exams where dose is matched to clinical indication); or iterative reconstruction. Contrast material: VISI 320; Contrast volume: 95 ml; Contrast route: INTRAVENOUS (IV); COMPARISON: CT abdomen pelvis w con* [id number] 03/02/2021 10:54 AM RADIATION DOSE METRICS: Total DLP (mGy-cm): 1056.98 FINDINGS: Tubes, catheters and devices: Left chest tube is now noted to be in place in the inferior pleural space. Significant residual left pleural fluid is present with increased rind of soft tissue thickening within the pleural space. Lungs: Improved aeration of visualized left lower lobe. Liver: Normal. No mass. Gallbladder and bile ducts: Prior cholecystectomy noted. Pancreas: Normal. No ductal dilation. Spleen: Normal. No splenomegaly. Adrenal glands: Normal. No mass. Kidneys and ureters: 5.4 cm largest cyst noted in kidneys that have multiple simple renal cysts. No further evaluation required. Stomach and bowel: Colonic diverticulosis is present without diverticulitis. Appendix: No evidence of appendicitis. Intraperitoneal space: Unremarkable. No free air. No significant fluid collection. Vasculature: A circumaortic left renal vein is present. Moderate atherosclerotic disease is evident. Incidental phleboliths noted. Lymph nodes: Unremarkable. No enlarged lymph nodes. Urinary bladder: Unremarkable as visualized. Reproductive: Unremarkable as visualized. Bones/joints: Moderate marginal osteophytes are noted. L4-S1 Degenerative disc disease with disc space narrowing and osteophyte formation. Facet joint degenerative changes are present. Soft tissues: See Tubes, catheters and devices finding. CT/CT abdomen pelvis w con* [id number] IMPRESSION: 1. Left chest tube is now noted to be in place in the inferior pleural space. Significant residual left pleural fluid is present with increased rind of soft tissue thickening within the pleural space. 2. Improved aeration of visualized left lower lobe. 3. Colonic diverticulosis is present without diverticulitis. 4. No acute intra-abdominal pathology. COMMENTS: Consistent with the [employer]'s Incidental Findings Committee white paper (J Am Anna Radiol 2018): Any incidental renal lesion less than 1 cm or classified as too small to characterize, or any incidental cystic renal lesion characterized as simple-appearing, is likely benign. No follow-up imaging is recommended for these lesions per consensus recommendations based on imaging criteria.
--- NOTE | 2021-04-29 07:16 | ED_ITS ---
HPI - General Adult General: Chief complaint: General Medical Stated complaint: nausea Time Seen by Provider: 04/29/21 06:58 History of Present Illness: HPI narrative: Patient comes in with concerns for abdominal bloating for the past week. States that she has been dry heaving and nauseated since last night. States she does not really have abdominal pain, it just feels like she is bloated and uncomfortable. States she normally has issues with gas, however she has been unable to pass gas mostly or have a bowel movement for a couple of days. She denies fever, diarrhea, body aches, cough. Associated symptoms: Reports nausea and vomiting; Deny chest pain, dyspnea, headache(s), rash or palpitations Review of Systems Const: Denies: fever(s) or body aches Eyes: Denies: change in vision or blurry vision ENMT: Denies: throat pain or odynophagia Card: Denies: chest pain or palpitations Resp: Denies: dyspnea or productive cough GI: Reports: nausea, vomiting and bloating; Denies: abdominal pain : Denies: flank pain or dysuria Musc: Denies: neck pain or back pain Skin/Breast: Denies: rash or pruritus Neuro: Denies: headache(s) or numbness in extremities Psych: Denies: anxiety or change in appetite Endo: Denies: polyuria or excessive sweating PFSH ED PFSH: Medical History (Updated 04/29/21 @ 14:17 by Freddy Rueda MD) Anxiety Bilateral lower extremity edema Chest pressure Dyspnea Encounter for medication management Essential hypertension Frequent UTI Murmur UTI symptoms Vitamin D deficiency Social History Quit status (tobacco): has quit using tobacco Year quit tobacco: 2020 Former quit date comment: 1ppd x 50 years Female Reproductive History: Date of last menstrual period: 03/02/21 Physical Exam Const: COMMON NORMALS: no acute distress, patient oriented x3, healthy appearing and alert HENMT: COMMON NORMALS: normocephalic and atraumatic HEAD & SCALP: normocephalic and atraumatic MOUTH: moist mucous membranes abnormal (Dry mucous membranes) Details: parched Eye: COMMON NORMALS: Equal, round and reactive pupils present and EOMs intact bilaterally PUPIL: Yes Equal, round and reactive pupils present Neck/C-Spine: COMMON NORMALS: full ROM and supple Chest: COMMONS NORMALS: normal inspection of the chest (Left chest tube in place) Resp: COMMON NORMALS: normal respiratory effort, No retractions and No use of accessory muscles Cardio: COMMON NORMALS: regular rhythm RATE: tachycardic RHYTHM: regular rhythm GI: COMMON NORMALS: Normal to inspection, nondistended, normoactive bowel sounds present and Soft to palpation PALPATION: Yes Soft to palpation, No Firmness to palpation present (GI) and Yes Tenderness to palpation present (GI) Details: LLQ Back/Pelvis: COMMON NORMALS: thoracic and lumbar spine normal to inspection and no thoracic nor lumbar tenderness Extremity: COMMON NORMALS: normal to inspection and full ROM Neuro: COMMON NORMALS: patient oriented x3 SENSORIUM/ORIENTATION: Yes alert Psych: COMMON NORMALS: mental status grossly normal and cooperative Skin: COMMON NORMALS: no rashes or lesions noted and no wounds GENERAL SKIN EXAM: no rashes or lesions noted Course Vital Signs: Vital signs: Vital Signs Temperature 98.7 F 04/29/21 11:51 Pulse Rate 95 04/29/21 13:21 Respiratory Rate 18 04/29/21 11:51 Blood Pressure 89/48 04/29/21 13:15 Pulse Oximetry 96 04/29/21 13:15 MDM - General Adult MDM Narrative: Medical decision making narrative: Patient comes in complaining of abdominal bloating which she states started about a week ago. States it got worse last night with nausea and dry heaves. Denies diarrhea. States she has not had a bowel movement in 2 days. On physical exam her abdomen is soft, nondistended, with tenderness to palpation in the left lower quadrant. Will check labs, treat nausea with IV antiemetics, give IV fluids, check CT, and reassess. On reassessment I talked to the patient about the test results. I discussed the case with her oncologist we will transfuse 1 unit of PRBCs, and reassess. On reassessment the patient states she is feeling much better. Will discharge at this time with precautions return for worsening or changing symptoms Lab Data: Labs: Lab Results 04/29/21 04/29/21 04/29/21 08:07 08:07 08:07 WBC 7.6 10^3/uL 10^3/ uL (4.0-10.0) RBC 2.83 10^6/uL L 10 ^6/uL (4.1-5.3) Hgb 7.6 g/dL L g/dL (11.5-15.3) Hct 25.1 % L % (37.0-47.0) MCV 88.7 fl fl (81-99) MCH 26.9 pg L pg (28.0-34.0) MCHC 30.3 g/dL g/dL (30.0-36.0) RDW 21.3 % H % (12.1-15.1) Plt Count 33 10^3/cmm L 10^ 3/cmm (130-400) MPV Not Reportable Neut % (Auto) 70.2 % % Lymph % (Auto) 18.8 % % [place] % (Auto) 6.6 % % Eos % (Auto) 0.3 % % Baso % (Auto) 0.1 % % Neut # (Auto) 5.30 10^3/uL 10^3 /uL (1.8-7.7) Lymph # (Auto) 1.4 10^3/uL 10^3/ uL (0.8-4.8) [place] # (Auto) 0.5 10^3/uL 10^3/ uL (0.2-0.9) Eos # (Auto) 0.0 10^3/uL 10^3/ uL (0.0-0.8) Baso # (Auto) 0.0 10^3/uL 10^3/ uL (0.0-0.1) Nucleated RBC % (a uto) 0.3 % % Nucleated RBCs # 0.0 /100WBC /100W BC Sodium 130 mmol/L L mmol /L (136-145) Potassium 3.4 mmol/L L mmol /L (3.5-5.1) Chloride 95 mmol/L L mmol/ L (98-107) Carbon Dioxide 20 mmol/L L mmol/ L (22-29) Anion Gap 18.4 (5-19) BUN 27 mg/dL H mg/dL (8-23) Creatinine 1.2 mg/dL H mg/dL (0.5-0.9) GFR Calculation 44.7 mL/min L mL/ min (90-130) Glucose 72 mg/dL mg/dL (65-115) Calculated Osmolal ity 274 mOsm/kg L mOs m/kg (285-295) Lactate 2.3 mmol/L H mmol /L (0.5-2.2) Calcium 7.0 mg/dL L mg/dL (8.5-10.5) Total Bilirubin 1.0 mg/dL mg/dL (0.15-1.2) AST 38 U/L H U/L (0-32) ALT 23 U/L U/L (0-33) Alkaline Phosphata se 88 IU/L IU/L (35-105) Total Protein 4.2 g/dL L g/dL (6.6-8.7) Albumin 2.1 g/dL L g/dL (3.5-5.2) Globulin 2.1 g/dL g/dL (1.3-4.6) Lipase 15 U/L U/L (13-60) Urine Color Urine Appearance Urine pH Ur Specific Gravit y Urine Protein Urine Glucose (UA) Urine Ketones Urine Blood Urine Nitrate Urine Bilirubin Urine Urobilinogen Ur Leukocyte Kanchan ase Blood Type Rho(D) Type Antibody Screen Crossmatch 04/29/21 04/29/21 10:18 10:25 WBC RBC Hgb Hct MCV MCH MCHC RDW Plt Count MPV Neut % (Auto) Lymph % (Auto) [place] % (Auto) Eos % (Auto) Baso % (Auto) Neut # (Auto) Lymph # (Auto) [place] # (Auto) Eos # (Auto) Baso # (Auto) Nucleated RBC % (a uto) Nucleated RBCs # Sodium Potassium Chloride Carbon Dioxide Anion Gap BUN Creatinine GFR Calculation Glucose Calculated Osmolal ity Lactate Calcium Total Bilirubin AST ALT Alkaline Phosphata se Total Protein Albumin Globulin Lipase Urine Color Yellow (Yellow) Urine Appearance Clear (CLEAR) Urine pH 5 (5-7) Ur Specific Gravit y 1.010 (1.005-1.030) Urine Protein Neg (Negative) Urine Glucose (UA) Norm (Normal) Urine Ketones Negative (Negative) Urine Blood Neg (Negative) Urine Nitrate Negative (Negative) Urine Bilirubin Neg (Negative) Urine Urobilinogen 1 mg/dL H mg/dL (Negative) Ur Leukocyte Kanchan ase Negative (Negative) Blood Type A Positive Rho(D) Type Positive Antibody Screen Negative Crossmatch See Detail Discharge Plan Discharge Patient Disposition: Home Clinical Impression: Anemia Qualifiers: Anemia type: unspecified type Qualified Code(s): D64.9 - Anemia, unspecified Condition: Stable Prescriptions: No Action atorvastatin [Lipitor] 80 mg tablet 80 mg PO DAILY RF: 0 clonazepam 0.5 mg tablet 0.5 mg PO DAILY PRN (Reason: Anxiety) 30 Days Qty: 30 RF: 1 potassium chloride [Klor-Con M10] 10 mEq tablet,ER particles/crystals 10 meq PO DAILY 30 Days Qty: 30 RF: 0 citalopram [Celexa] 10 mg tablet 10 mg PO DAILY Qty: 30 RF: 2 (DME) miscellaneous medical supply Package See Rx Instructions .Route Qty: 3 RF: 5 multivitamin Tablet 1 tab PO DAILY RF: 0 apixaban 5 mg tablet 2.5 mg PO BID RF: 0 ondansetron 4 mg tablet,disintegrating 4 mg PO Q8H PRN (Reason: Nausea) RF: 0 lactulose [Generlac] 10 gram/15 mL solution 30 ml PO Q2H PRN (Reason: Constipation) RF: 0 furosemide 40 mg tablet 40 mg PO BID RF: 0 levofloxacin 500 mg tablet 500 mg PO DAILY RF: 0 prednisone 10 mg tablet 10 mg PO DAILY RF: 0 Discharge Orders: Discharge ED (Routine); Ordered 04/29/21 Ordered By: Freddy Rueda Referrals: DB Tan, [employer] [Primary Care Provider] - Coding Level of Care Code ED Roll Handler for [place] Fwd Exam Comprehensive
[2021-04-29] MEDS: iodixanol 320 mg/mL 100mL Btl IV (07:42)
[2021-04-29] MEDS: sodium chloride 0.9% 1,000 ML 999 ML IV (07:49)
[2021-04-29] MEDS: metoclopramide 5 mg/mL SDV 2 mL 10 MG IVP (07:50)
[2021-04-29 08:15] LABS: Basophils % 0.1 %; Eosinophils % 0.3 %; Hematocrit 25.1 % (37.0-47.0); Hemoglobin 7.6 g/dL (11.5-15.3); Lymphocytes # 1.4 10^3/uL (0.8-4.8); Lymphocytes % 18.8 %; Mean Corpuscular HGB Conc 30.3 g/dL (30.0-36.0); Mean Corpuscular Hemoglobin 26.9 pg (28.0-34.0); Mean Corpuscular Volume 88.7 fl (81-99); Monocytes # 0.5 10^3/uL (0.2-0.9); Monocytes % 6.6 %; Neutrophils % 70.2 %; Nucleated Red Blood Cells % 0.3 %; Platelet Count 33 10^3/cmm (130-400); Red Blood Count 2.83 10^6/uL (4.1-5.3); Red Cell Distribution Width 21.3 % (12.1-15.1); White Blood Count 7.6 10^3/uL (4.0-10.0)
[2021-04-29 08:30] LABS: Lactate (Lactic Acid level) 2.3 mmol/L (0.5-2.2)
[2021-04-29 08:31] LABS: Alanine Aminotransferase 23 U/L (0-33); Albumin Level 2.1 g/dL (3.5-5.2); Alkaline Phosphatase 88 IU/L (35-105); Anion Gap 18.4 (5-19); Aspartate Amino Transferase 38 U/L (0-32); Blood Urea Nitrogen 27 mg/dL (8-23); Carbon Dioxide 20 mmol/L (22-29); Chloride 95 mmol/L (98-107); Globulin 2.1 g/dL (1.3-4.6); Glomerular Filtration Rate 44.7 mL/min (90-130); Glucose 72 mg/dL (65-115); Lipase 15 U/L (13-60); Osmolality Calculated 274 mOsm/kg (285-295); Potassium 3.4 mmol/L (3.5-5.1); Sodium 130 mmol/L (136-145); Total Protein 4.2 g/dL (6.6-8.7)
[2021-04-29 08:37] LABS: Slide Review Slide Review Perform
[2021-04-29 10:25] LABS: Add Urine Microscopic? NO; Charge for UA Resulting for Rev
[2021-04-29 10:33] LABS: Bilirubin Urine Neg (Negative); Blood Urine Neg (Negative); Glucose Urine UA Norm (Normal); Ketones Urine Negative (Negative); Leukocyte Esterase Urine Negative (Negative); Nitrate Urine Negative (Negative); Protein Urine Neg (Negative); Urine Appearance Clear (CLEAR); Urine Color Yellow (Yellow); Urobilinogen Urine 1 mg/dL (Negative); pH Urine 5 (5-7)
--- NOTE | 2021-05-03 19:52 | PC.NURSE ---
blood transfusion finished on 04/29/21 at 1406
== END 2021-04-29 15:15 | disposition home or self-care (01) ==
PROVIDERS: Emergency Provider Emergency Medicine; PCP Nurse Practitioner Family
DX: D64.9 Anemia, unspecified (principal); I10 Essential (primary) hypertension; Z87.891 Personal history of nicotine dependence
CPT/HCPCS: 36415; 36430; 74177; 80053; 81003; 83605; 83690; 85025; 86850; 86900; 86920; 96374; 99284; J2765; J7030; P9016; Q9967

== ENCOUNTER → 2021-04-30 12:55 | Day surgery (SDC) | payer MEDICARE, SELFPAY ==
[2021-04-30 13:29] VITALS: BP 102/45; PULSE 100; RESP 18; TEMP 36.4; O2SAT 96
--- NOTE | 2021-04-30 13:29 | PC.NURSE ---
Pt to GI lab for drainage of Pleurx cath. 650 mL dark edgardo, reddish, drainage emptied. Pt tolerated well. VSS.
== END ==
LOC: GILAB 12:58
PROVIDERS: PCP Nurse Practitioner Family; Visit Provider Internal Medicine Critical Care Medicine
DX: C80.1 Malignant (primary) neoplasm, unspecified (principal); J91.0 Malignant pleural effusion

== ENCOUNTER → 2021-05-03 12:54 | Day surgery (SDC) | payer MEDICARE, SELFPAY ==
[2021-05-03 13:22] VITALS: BP 89/54; PULSE 100; RESP 18; TEMP 36; O2SAT 96
--- NOTE | 2021-05-03 13:23 | PC.NURSE ---
Pt to GI lab for drainage of Pleurx cath. 800 mL edgardo, reddish fluid removed. Pt tolerated well.
== END ==
LOC: GILAB 12:56
PROVIDERS: PCP Nurse Practitioner Family; Visit Provider Internal Medicine Critical Care Medicine
DX: C80.1 Malignant (primary) neoplasm, unspecified (principal); J91.0 Malignant pleural effusion

== ENCOUNTER → 2021-05-05 12:07 | Day surgery (SDC) | payer MEDICARE, SELFPAY ==
[2021-05-05 12:36] VITALS: BP 101/62; PULSE 110; RESP 18; TEMP 36.4; O2SAT 96
--- NOTE | 2021-05-05 12:38 | PC.NURSE ---
Pt to GI lab for drainage of Pleurx cath to left chest. 750 mL dark red fluid removed. Pt tolerated well. VSS.
== END ==
LOC: GILAB 12:09
PROVIDERS: PCP Nurse Practitioner Family; Visit Provider Internal Medicine Critical Care Medicine
DX: C80.1 Malignant (primary) neoplasm, unspecified (principal); J91.0 Malignant pleural effusion

== ENCOUNTER → 2021-05-07 12:13 | Day surgery (SDC) | payer MEDICARE, SELFPAY ==
[2021-05-07 12:20] VITALS: BP 89/64; PULSE 108; RESP 18; TEMP 36; O2SAT 97
--- NOTE | 2021-05-07 12:48 | PC.NURSE ---
Pt to GI lab for drainage of Pluerx cath to left chest. 600 mL dark reddish drainage removed. Pt tolerated fair. Daughter with patient.
== END ==
PROVIDERS: PCP Nurse Practitioner Family; Visit Provider Internal Medicine Critical Care Medicine
DX: C80.1 Malignant (primary) neoplasm, unspecified (principal); J91.0 Malignant pleural effusion

== ENCOUNTER → 2021-05-10 10:23 | Day surgery (SDC) | payer MEDICARE, SELFPAY ==
[2021-05-10 10:25] VITALS: BP 106/60; PULSE 107; RESP 18; TEMP 35.8; O2SAT 96
--- NOTE | 2021-05-10 10:35 | PC.NURSE ---
Pt to GI lab to have pleurx cath to left chest drained. 700 mL reddish fluid emptied. Pt tolerated well.
== END ==
PROVIDERS: PCP Nurse Practitioner Family; Visit Provider Internal Medicine Critical Care Medicine
DX: C80.1 Malignant (primary) neoplasm, unspecified (principal); J91.0 Malignant pleural effusion

== ENCOUNTER 2021-05-10 10:56 | Outpatient (CLI) | payer MEDICARE, SELFPAY ==
[2021-05-10 11:50] LABS: Basophils % 0.2 %; Eosinophils % 0.1 %; Hematocrit 36.8 % (37.0-47.0); Lymphocytes # 2.4 10^3/uL (0.8-4.8); Lymphocytes % 18.6 %; Mean Corpuscular HGB Conc 29.9 g/dL (30.0-36.0); Mean Corpuscular Hemoglobin 27.1 pg (28.0-34.0); Mean Corpuscular Volume 90.6 fl (81-99); Monocytes # 0.5 10^3/uL (0.2-0.9); Monocytes % 4.1 %; Neutrophils # 9.62 10^3/uL (1.8-7.7); Neutrophils % 73.6 %; Nucleated Red Blood Cells % 0 %; Platelet Count 53 10^3/cmm (130-400); Red Blood Count 4.06 10^6/uL (4.1-5.3); White Blood Count 13.1 10^3/uL (4.0-10.0)
[2021-05-10 12:28] LABS: Alanine Aminotransferase 26 U/L (0-33); Albumin Level 2.5 g/dL (3.5-5.2); Alkaline Phosphatase 114 IU/L (35-105); Blood Urea Nitrogen 27 mg/dL (8-23); Calcium 8.5 mg/dL (8.5-10.5); Carbon Dioxide 20 mmol/L (22-29); Chloride 103 mmol/L (98-107); Globulin 2.6 g/dL (1.3-4.6); Glomerular Filtration Rate 62.3 mL/min (90-130); Glucose 82 mg/dL (65-115); Iron 49 ug/dL (37-145); Osmolality Calculated 286 mOsm/kg (285-295); Sodium 136 mmol/L (136-145); Total Bilirubin 0.6 mg/dL (0.15-1.2); Total Protein 5.1 g/dL (6.6-8.7)
[2021-05-10 12:35] LABS: Anion Gap 17.4 (5-19); Aspartate Amino Transferase 52 U/L (0-32); Potassium 4.4 mmol/L (3.5-5.1); Total Iron Binding Capacity 175 mcg/dl; Unsaturated Iron Binding 126 ug/dL (112-347)
[2021-05-10 12:54] LABS: Ferritin 3745 ng/mL (15-150)
--- NOTE | 2021-05-14 09:03 | ONC FU_ITS ---
Dr. Irving Patient Follow-Up Note Patient: Rima Manuel Unit #: [id number]: 1950 Dicatated By: Aiden Irving M.D.Date of Visit:May 10, 2021 Onc Med Follow-up/Prog Note Chief Complaint: Lung cancer. 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 On 02/07/2021 she was admitted to the hospital after presenting to the emergency room with increasing shortness of breath and chest discomfort over a period of several weeks. Her CT pulmonary angiogram showed occlusive pulmonary emboli in the anterior and lateral segmental branches and the subsegmental branches of the right lower lobe pulmonary artery. Additional nonocclusive pulmonary emboli are noted in the right lower lobe pulmonary artery branches. Also noted was a spiculated nodule in the left upper lobe measuring 1.5 x 0.8 x 1.0 cm, multiple enlarged mediastinal and right axillary lymph nodes, and a large left pleural effusion. Venous Doppler study showed bilateral lower extremity deep vein thrombosis. She began on anticoagulation with apixaban. Following discharge she had outpatient thoracentesis on 02/19/2021 and on 02/26/2021. The pleural fluid cytology was positive for poorly differentiated non-small cell carcinoma, TTF-1 focally and weakly positive in rare cells. On 03/02/2021 she was readmitted to the hospital after presenting to the emergency room with weakness and shortness of breath. She was found to be severely anemic, hemoglobin 6.4 g. She had not been aware of any active bleeding, but she was found to have a positive stool Hemoccult. She was transfused PRBC. Her evaluation at the time also included a noncontrast head CT which showed no evidence of intracranial hemorrhage. However, there was a moderate amount of subcortical edema involving the left parasagittal parietal and occipital lobes which was felt to be suspicious for an underlying metastatic deposit. In addition, her echocardiogram showed 2 echodense lesions in the right ventricle measuring 2.4 x 1.4 cm and 1.3 x 1.0 cm. They were felt to possibly represent organized thrombus. Given those findings, she was transferred to the [facility] for further evaluation/management. Those records are not yet available, I am told that her ADVERTISING SALES ASSISTANT evaluation was consistent with stroke rather than ADVERTISING SALES ASSISTANT metastatic disease and that a right axillary lymph node biopsy was positive for adenocarcinoma. I had seen her initially on 03/15/2021. With advanced non-small cell lung cancer in the setting of poor performance status, I had deferred specific recommendations for treatment pending outcome of next generation sequencing, which was ordered on the axillary lymph node biopsy. In the meantime, on 03/29/2021 she presented to the emergency room with increased weakness and shortness of breath. Her hemoglobin had dropped to 7.3 g. Her platelet count at that time was moderately decreased at 62,000. She was transfused 1 unit PRBC. She was seen for follow-up on 04/02/2021. At that point she continued to have very limited activity, but her hemoglobin was adequate at 9.5 g. There was further decline in her platelet count to 25,000. Her apixaban dosage was reduced to 2.5 mg twice daily. She was seen again on 04/05/2021 to discuss treatment options. She continued to have very marginal performance status, and she was clearly not an appropriate candidate for cytotoxic chemotherapy. She was given the option to have a trial of immunotherapy with pembrolizumab with the understanding that the likelihood of benefit would be low. I also discussed the option of continuing with symptomatic/supportive care measures on hospice. Following further discussions with her family, she indicated that she was wanting to try the treatment. She returned on 04/19/2021 for cycle 1 of pembrolizumab at 200 mg by IV infusion. She tolerated it without acute toxicity. At that time, she also began parenteral iron replacement with Injectafer for iron deficiency. She is seen for a follow-up visit. She has been feeling a little better generally, though she still has very limited activity. She ambulates short distances with a walker. ECOG score is 3. Her appetite comes and goes, but overall it is a little better. She has not had fever or night sweats. She has had some improvement in her swelling. On Monday she had seen her primary care provider with increased chest congestion, and she was started on antibiotic therapy with doxycycline. She still has some chest congestion and cough, and she has shortness of breath with effort. She does not complain of chest pain. She has had occasional dry heaves. Bowel and bladder function remain adequate. She gets a little uncomfortable from prolonged sitting, but she otherwise is not having any significant joint or bone pain. She does not complain of headache or dizziness. She still has some weakness in the right arm. She has no numbness/paresthesia or other focal neurologic symptoms. Medications: Apixaban 1 Tablet (of 5 mg) Oral daily, Atorvastatin Calcium 1 Tablet (of 80 mg) Oral daily, clonazePAM (1 mg) Tablet Oral ac am PRN, Doxycycline Capsule Delayed Release Oral b.i.d., FLUoxetine HCl (20 mg) Capsule Oral daily, Furosemide 0.5 - 1 Tablet (of 20 mg) Oral daily, levoFLOXacin 1 Tablet (of 750 mg) Oral daily, Potassium Chloride Jeanne ER 1 Tablet (of 10 meq) Tablet, controlled release Oral daily Allergies: No Known Allergies. Vital Signs: Performed on May 10, 2021 12:52 Height - 64.00 in Weight - 123.4 lbs (LOW) BSA - 1.59 sq.m BMI - 21.18 Temperature - 97.4 F (LOW) Pulse - 114 /min (HIGH) Respiration - 16 /min BP - 124/75 mm(hg) O2 Sat - 96 % Pain - 0 Fatigue - 5 Physical Examination: Constitutional - She appears generally weak, Eyes - Sclerae nonicteric. Conjunctivae clear, ENMT - No lesions noted in the oral cavity, Hematologic/Lymphatic - No cervical, clavicular, or axillary adenopathy noted, Respiratory - Lungs show diminished air movement bilaterally, worse on the left, Cardiovascular - Heart rhythm is regular with a mild tachycardia. There is no murmur, gallop, or rub noted, Abdomen - Soft. Liver and spleen are not enlarged. There is no abdominal mass or ascites noted and there is no inguinal adenopathy, Extremities - Mild lower extremity edema, Neurologic - There is residual weakness in the right hand. Lab/Imaging: Test performed on May 10, 2021 11:19 Ferritin 3745 ng/mL Iron 49 mcg/dL Sodium 136 mmol/L TSH 2.50 uIU/mL Iron Binding Capacity (TIBC) 175 mcg/dl Potassium 4.4 mmol/L % Iron Saturation 28.0 % Chloride 103 mmol/L CO2 20 mmol/L UIBC 126 mcg/dL Anion Gap 17.4 BUN 27 mg/dL Creatinine 0.9 mg/dL Cr Clearance (Est) 52.86 mL/min eGFR 62.3 mL/min Glucose 82 mg/dL Osmolality - Calculated 286 mOsm/kg Calcium 8.5 mg/dL Protein, Total 5.1 g/dL Albumin 2.5 g/dL Globulin 2.6 g/dL Bilirubin, Total 0.6 mg/dL ALT (SGPT) 26 U/L AST (SGOT) 52 U/L Alkaline Phosphatase 114 IU/L WBC 13.1 10 3/uL RBC 4.06 10 6/uL HGB 11.0 g/dL HCT 36.8 % MCV 90.6 fl MCH 27.1 pg MCHC 29.9 g/dL RDW 18.0 % Platelet Count 53 10 3/cmm Neutrophils 9.62 10 3/uL Lymphocytes 2.4 10 3/uL Monocytes 0.5 10 3/uL Eosinophils 0.0 10 3/uL Basophils 0.0 10 3/uL Neutrophil % 73.6 % Lymphocyte % 18.6 % Monocyte % 4.1 % Eosinophil % 0.1 % Basophils % 0.2 % NRBC % 0 % Problem List: 1. Adenocarcinoma involving the upper lobe of the left lung, stage IVB (T1b, N3, M1c) with malignant pleural effusion and right axillary lymph node involvement. 2. 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 3. She developed severe anemia on anticoagulation with apixaban. This was presumed to be due to blood loss, though a definite source was not determined. 4. History of recurrent urinary tract infection. Problems Addressed with this Encounter and Plan: 1. Patient with adenocarcinoma involving the upper lobe of the left lung, stage IVB (T1b, N3, M1c) with malignant pleural effusion and right axillary lymph node involvement. 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 She has poor performance status. The results of her next generation sequencing have now become available. The sample unfortunately was insufficient for a complete analysis. However, the tumor was negative for PD-L1 expression and it was MSI stable. There were no actionable mutations identified, but the tumor did show high mutational burden at 19 mut/Mb. Based on the high mutational burden, she was given the option to have a trial of immunotherapy with pembrolizumab. She began cycle 1 on 04/19/2021 at a standard dosage of 200 mg by IV infusion. She tolerated it without acute toxicity. She has since then continued to have marginal performance status, though she does appear to be showing slight improvement. As such, she will continue now with cycle 2 of pembrolizumab. The dosage remains the same. Due to her performance status and multiple comorbidities, she continues to require close monitoring. Blood counts will be monitored weekly. She will be scheduled for follow-up in 3 weeks. 2. She developed severe anemia on anticoagulation with apixaban. This was presumed to be due to acute blood loss, though a definite source was not determined. Her laboratory studies were indicative of iron deficiency. As she was not tolerating the oral iron, she was given parenteral iron replacement with Injectafer. She does appear to be showing response. 3. She has moderately severe thrombocytopenia, but her platelet count has stabilized and she has had no evidence of active bleeding. However, as a precaution, her apixaban dosage has been decreased to 2.5 mg twice daily. Signed By: Aiden Irving M.D. <<Signature on File>>
== END 2021-05-10 10:57 | disposition home or self-care (01) ==
LOC: ONCMED 10:59
PROVIDERS: PCP Nurse Practitioner Family; Visit Provider Internal Medicine Medical Oncology
DX: Z51.12 Encounter for antineoplastic immunotherapy (principal); C34.12 Malignant neoplasm of upper lobe, left bronchus or lung; J91.0 Malignant pleural effusion; D68.59 Other primary thrombophilia; I82.5Z3 Chronic embolism and thrombosis of unspecified deep veins of distal lower extremity, bilateral; I26.99 Other pulmonary embolism without acute cor pulmonale; Z79.899 Other long term (current) drug therapy; Z79.01 Long term (current) use of anticoagulants; Z86.73 Personal history of transient ischemic attack (TIA), and cerebral infarction without residual deficits; C80.1 Malignant (primary) neoplasm, unspecified
CPT/HCPCS: 80053; 82728; 83540; 83550; 84443; 85025; 96413; 99215; J7050; J9271

== ENCOUNTER → 2021-05-12 11:11 | Day surgery (SDC) | payer MEDICARE, SELFPAY ==
[2021-05-12 11:20] VITALS: BP 96/57; PULSE 104; RESP 18; TEMP 35.8; O2SAT 91
== END ==
PROVIDERS: PCP Nurse Practitioner Family; Visit Provider Internal Medicine Critical Care Medicine
DX: C80.1 Malignant (primary) neoplasm, unspecified (principal); J91.0 Malignant pleural effusion

== ENCOUNTER → 2021-05-14 12:08 | Day surgery (SDC) | payer MEDICARE, SELFPAY ==
--- NOTE | 2021-05-14 12:15 | PC.NURSE ---
Pt to GI lab to have pluerx cath to left chest drained. 600 mL reddish liquid removed. [facility] nurse notified this nurse that the [facility] would not be able to assume care of the pluerx cath as planned. GI lab to continue draining pleurx cath Mon, Wed, Fri and PRN. Pt and family aware.
[2021-05-14 12:45] VITALS: BP 106/57; PULSE 106; RESP 18; TEMP 36.2; O2SAT 96
== END ==
PROVIDERS: PCP Nurse Practitioner Family; Visit Provider Internal Medicine Critical Care Medicine
DX: C80.1 Malignant (primary) neoplasm, unspecified (principal); J91.0 Malignant pleural effusion

== ENCOUNTER → 2021-05-17 11:09 | Day surgery (SDC) | payer MEDICARE, SELFPAY ==
--- NOTE | 2021-05-17 11:15 | PC.NURSE ---
Pt to GI lab for drainage of pleurx cath to left chest. 750 mL reddish fluid removed. Pt tolerated well.
[2021-05-17 11:56] VITALS: BP 100/60; PULSE 117; RESP 18; TEMP 36.5; O2SAT 98
== END ==
LOC: GILAB 11:10
PROVIDERS: PCP Nurse Practitioner Family; Visit Provider Internal Medicine Critical Care Medicine
DX: C80.1 Malignant (primary) neoplasm, unspecified (principal); J91.0 Malignant pleural effusion

== ENCOUNTER → 2021-05-24 10:17 | Day surgery (SDC) | payer MEDICARE, MEDICAID, SELFPAY ==
[2021-05-24 10:30] VITALS: BP 87/54; PULSE 109; RESP 18; TEMP 36; O2SAT 96
== END ==
PROVIDERS: PCP Nurse Practitioner Family; Visit Provider Internal Medicine Critical Care Medicine
DX: J91.0 Malignant pleural effusion (principal); C80.1 Malignant (primary) neoplasm, unspecified; C34.12 Malignant neoplasm of upper lobe, left bronchus or lung; C77.3 Secondary and unspecified malignant neoplasm of axilla and upper limb lymph nodes; D68.59 Other primary thrombophilia; I82.403 Acute embolism and thrombosis of unspecified deep veins of lower extremity, bilateral; I26.99 Other pulmonary embolism without acute cor pulmonale; I63.9 Cerebral infarction, unspecified; D50.0 Iron deficiency anemia secondary to blood loss (chronic); Z79.01 Long term (current) use of anticoagulants; Z79.899 Other long term (current) drug therapy; Z87.440 Personal history of urinary (tract) infections

== ENCOUNTER 2021-05-24 11:23 | Outpatient (CLI) | payer MEDICARE, MEDICAID, SELFPAY ==
[2021-05-24] MEDS: sodium chloride 0.9% 500 ML 999 ML IV (12:05)
--- NOTE | 2021-05-31 07:53 | ONC FU_ITS ---
Dr. Irving Patient Follow-Up Note Patient: Rima Manuel Unit #: [id number]: 1950 Dicatated By: Aiden Irving M.D.Date of Visit:May 24, 2021 Onc Med Follow-up/Prog Note Chief Complaint: Lung cancer. 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 On 02/07/2021 she was admitted to the hospital after presenting to the emergency room with increasing shortness of breath and chest discomfort over a period of several weeks. Her CT pulmonary angiogram showed occlusive pulmonary emboli in the anterior and lateral segmental branches and the subsegmental branches of the right lower lobe pulmonary artery. Additional nonocclusive pulmonary emboli are noted in the right lower lobe pulmonary artery branches. Also noted was a spiculated nodule in the left upper lobe measuring 1.5 x 0.8 x 1.0 cm, multiple enlarged mediastinal and right axillary lymph nodes, and a large left pleural effusion. Venous Doppler study showed bilateral lower extremity deep vein thrombosis. She began on anticoagulation with apixaban. Following discharge she had outpatient thoracentesis on 02/19/2021 and on 02/26/2021. The pleural fluid cytology was positive for poorly differentiated non-small cell carcinoma, TTF-1 focally and weakly positive in rare cells. On 03/02/2021 she was readmitted to the hospital after presenting to the emergency room with weakness and shortness of breath. She was found to be severely anemic, hemoglobin 6.4 g. She had not been aware of any active bleeding, but she was found to have a positive stool Hemoccult. She was transfused PRBC. Her evaluation at the time also included a noncontrast head CT which showed no evidence of intracranial hemorrhage. However, there was a moderate amount of subcortical edema involving the left parasagittal parietal and occipital lobes which was felt to be suspicious for an underlying metastatic deposit. In addition, her echocardiogram showed 2 echodense lesions in the right ventricle measuring 2.4 x 1.4 cm and 1.3 x 1.0 cm. They were felt to possibly represent organized thrombus. Given those findings, she was transferred to the [facility] for further evaluation/management. Those records are not yet available, I am told that her CANAL TENDER evaluation was consistent with stroke rather than CANAL TENDER metastatic disease and that a right axillary lymph node biopsy was positive for adenocarcinoma. I had seen her initially on 03/15/2021. With advanced non-small cell lung cancer in the setting of poor performance status, I had deferred specific recommendations for treatment pending outcome of next generation sequencing, which was ordered on the axillary lymph node biopsy. In the meantime, on 03/29/2021 she presented to the emergency room with increased weakness and shortness of breath. Her hemoglobin had dropped to 7.3 g. Her platelet count at that time was moderately decreased at 62,000. She was transfused 1 unit PRBC. She was seen for follow-up on 04/02/2021. At that point she continued to have very limited activity, but her hemoglobin was adequate at 9.5 g. There was further decline in her platelet count to 25,000. Her apixaban dosage was reduced to 2.5 mg twice daily. She was seen again on 04/05/2021 to discuss treatment options. She continued to have very marginal performance status, and she was clearly not an appropriate candidate for cytotoxic chemotherapy. She was given the option to have a trial of immunotherapy with pembrolizumab with the understanding that the likelihood of benefit would be low. I also discussed the option of continuing with symptomatic/supportive care measures on hospice. Following further discussions with her family, she indicated that she was wanting to try the treatment. She returned on 04/19/2021 for cycle 1 of pembrolizumab at 200 mg by IV infusion. She tolerated it without acute toxicity. At that time, she also began parenteral iron replacement with Injectafer for iron deficiency. As of her follow-up visit on 05/10/2021 she was feeling a little better generally, and she continued with cycle 2 of pembrolizumab. She is seen for an unplanned visit. She had been seen in the emergency room in [place] last evening with fairly acute onset of urinary retention, starting around 4:30 in the afternoon. Up until then she had been drinking plenty of fluids and voiding well. She was discharged home with an indwelling Courtney catheter. Today she was seen in the outpatient department for drainage of her Pleurx catheter, which is being done twice a week. She still has significant output. Today it was 600 mL. She has had further decline in her energy since her last treatment, to the point that she now has virtually no ambulation. Since yesterday she has not been eating or drinking. She has not had fever or night sweats. She has not had sore mouth or throat. She does have cough and she is short of breath with effort. She does not complain of chest pain. She sometimes gets gassy. She has ongoing problems with constipation. She has been taking enemas daily. She is not having any significant joint or bone pain. She has no focal neurologic symptoms. Medications: Apixaban 1 Tablet (of 5 mg) Oral daily, Atorvastatin Calcium 1 Tablet (of 80 mg) Oral daily, clonazePAM (1 mg) Tablet Oral ac am PRN, Doxycycline Capsule Delayed Release Oral b.i.d., FLUoxetine HCl (20 mg) Capsule Oral daily, Furosemide 0.5 - 1 Tablet (of 20 mg) Oral daily, levoFLOXacin 1 Tablet (of 750 mg) Oral daily, Potassium Chloride Jeanne ER 1 Tablet (of 10 meq) Tablet, controlled release Oral daily Allergies: No Known Allergies. Vital Signs: Performed on May 24, 2021 13:44 Height - 64.00 in Weight - 119.6 lbs (LOW) BSA - 1.57 sq.m BMI - 20.53 Temperature - 96.7 F (LOW) Pulse - 104 /min (HIGH) Respiration - 18 /min BP - 88/58 mm(hg) (LOW) O2 Sat - 98 % Pain - 0 Fatigue - 9 Physical Examination: Constitutional - She appears very weak generally, Eyes - Sclerae nonicteric. Conjunctivae clear, ENMT - No lesions noted in the oral cavity, Hematologic/Lymphatic - No cervical, clavicular, or axillary adenopathy noted, Respiratory - Lungs show diminished air movement bilaterally, worse on the left, Cardiovascular - Heart rhythm is regular with a mild tachycardia. There is no murmur, gallop, or rub noted, Abdomen - Soft. Liver and spleen are not enlarged. There is no abdominal mass or ascites noted and there is no inguinal adenopathy, Extremities - Mild lower extremity edema, Neurologic - There is some weakness in the right hand. Lab/Imaging: Test performed on May 10, 2021 11:19 Ferritin 3745 ng/mL Iron 49 mcg/dL Sodium 136 mmol/L TSH 2.50 uIU/mL Iron Binding Capacity (TIBC) 175 mcg/dl Potassium 4.4 mmol/L % Iron Saturation 28.0 % Chloride 103 mmol/L CO2 20 mmol/L UIBC 126 mcg/dL Anion Gap 17.4 BUN 27 mg/dL Creatinine 0.9 mg/dL Cr Clearance (Est) 52.86 mL/min eGFR 62.3 mL/min Glucose 82 mg/dL Osmolality - Calculated 286 mOsm/kg Calcium 8.5 mg/dL Protein, Total 5.1 g/dL Albumin 2.5 g/dL Globulin 2.6 g/dL Bilirubin, Total 0.6 mg/dL ALT (SGPT) 26 U/L AST (SGOT) 52 U/L Alkaline Phosphatase 114 IU/L WBC 13.1 10 3/uL RBC 4.06 10 6/uL HGB 11.0 g/dL HCT 36.8 % MCV 90.6 fl MCH 27.1 pg MCHC 29.9 g/dL RDW 18.0 % Platelet Count 53 10 3/cmm Neutrophils 9.62 10 3/uL Lymphocytes 2.4 10 3/uL Monocytes 0.5 10 3/uL Eosinophils 0.0 10 3/uL Basophils 0.0 10 3/uL Neutrophil % 73.6 % Lymphocyte % 18.6 % Monocyte % 4.1 % Eosinophil % 0.1 % Basophils % 0.2 % NRBC % 0 % Problem List: 1. Adenocarcinoma involving the upper lobe of the left lung, stage IVB (T1b, N3, M1c) with malignant pleural effusion and right axillary lymph node involvement. 2. 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 3. She developed severe anemia on anticoagulation with apixaban. This was presumed to be due to blood loss, though a definite source was not determined. 4. History of recurrent urinary tract infection. Problems Addressed with this Encounter and Plan: 1. Patient with adenocarcinoma involving the upper lobe of the left lung, stage IVB (T1b, N3, M1c) with malignant pleural effusion and right axillary lymph node involvement. 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 She has poor performance status. The results of her next generation sequencing have now become available. The sample unfortunately was insufficient for a complete analysis. However, the tumor was negative for PD-L1 expression and it was MSI stable. There were no actionable mutations identified, but the tumor did show high mutational burden at 19 mut/Mb. Based on the high mutational burden, she was given the option to have a trial of immunotherapy with pembrolizumab. She began cycle 1 on 04/19/2021 at a standard dosage of 200 mg by IV infusion. She tolerated it without acute toxicity. As of her follow-up visit on 05/10/2021 she continued to have marginal performance status, but she was feeling slightly better, and she continued with cycle 2 of pembrolizumab. She presents now after an ER visit for acute urinary retention. She has an indwelling Courtney catheter in place. Since then her oral intake has been poor, and she has not had good urine output. During the past week or so the family has noticed decline in her activity. If that continues, we will likely be transitioning her to hospice. In the meantime, she will be given IV hydration today, and she will start tamsulosin 0.4 mg at bedtime for the urinary retention. She also will add senna/docusate to her bowel regimen. 2. She has malignant pleural effusion, which she has a Pleurx catheter in place. She has been getting this drained as an outpatient twice weekly. Continuing this is no longer feasible, as it is it has become increasingly difficult for her to travel. As such, I will request home health care for management of the pleural effusion. Signed By: Aiden Irving M.D. <<Signature on File>>
== END 2021-05-24 11:24 | disposition home or self-care (01) ==
PROVIDERS: PCP Nurse Practitioner Family; Visit Provider Internal Medicine Medical Oncology
DX: C34.12 Malignant neoplasm of upper lobe, left bronchus or lung (principal); J91.0 Malignant pleural effusion; C77.3 Secondary and unspecified malignant neoplasm of axilla and upper limb lymph nodes; D68.59 Other primary thrombophilia; I82.403 Acute embolism and thrombosis of unspecified deep veins of lower extremity, bilateral; I26.99 Other pulmonary embolism without acute cor pulmonale; I63.9 Cerebral infarction, unspecified; D50.0 Iron deficiency anemia secondary to blood loss (chronic); Z79.01 Long term (current) use of anticoagulants; Z79.899 Other long term (current) drug therapy; Z87.440 Personal history of urinary (tract) infections
CPT/HCPCS: 96360; 99215; J7040